=== PATIENT | male | born 1945 | race Caucasian/White ===

== ENCOUNTER → 2017-08-19 | Outpatient (CLI) | payer OTHER | END | disposition home or self-care (01) | LOC: RAH 12:29 | PROVIDERS: ATTEND Orthopaedic Surgery | DX: I73.9 Peripheral vascular disease, unspecified (principal) | CPT/HCPCS: 93922 ==

== ENCOUNTER → 2020-07-08 | Outpatient (CLI) | payer OTHER ==
[~2020-07-08] MED LIST: REGADENOSON 0.4 MG/5 ML PF SYG IVP SCH
== END | disposition home or self-care (01) ==
LOC: SHCH 08:33
PROVIDERS: ATTEND Internal Medicine Cardiovascular Disease
DX: I73.9 Peripheral vascular disease, unspecified (principal); I20.9 Angina pectoris, unspecified
CPT/HCPCS: 78452; 93017; 96374; A9500 ×2; J2785

== ENCOUNTER 2020-08-14 06:52 | Inpatient (IN) | payer OTHER ==
[2020-08-12 10:45] LABS: EOSINOPHILS % (AUTO) 4.6 % (0.0-8.0); HEMATOCRIT 44.3 % (42-54); LYMPHOCYTES % (AUTO) 39.4 % (21.0-51.0); MEAN CORPUSCULAR HEMOGLOBIN 28.8 pg (27.0-33.0); MEAN CORPUSCULAR HGB CONC 33.2 g/dL (32.0-36.0); MEAN CORPUSCULAR VOLUME 86.9 fL (79-99); MONOCYTES % (AUTO) 9.7 % (3.0-13.0); PLATELET COUNT (AUTO) 157 K/uL (130-400); RED CELL DISTRIBUTION WIDTH 13.8 % (11.0-15.5); WHITE BLOOD COUNT (AUTO) 6.8 K/uL (4.8-10.8)
[2020-08-12 10:46] LABS: APPEARANCE,URINE Clear (CLEAR); BILIRUBIN,URINE Negative (NEGATIVE); COLOR,URINE Yellow (YELLOW); GLUCOSE, URINE (UA) Negative (NEGATIVE); KETONES,URINE Negative (NEGATIVE); LEUKOCYTE ESTERASE ,URINE Trace (NEGATIVE); NITRATE,URINE Negative (NEGATIVE); OCCULT BLOOD,URINE Negative (NEGATIVE); PROTEIN,URINE Negative (NEGATIVE); UROBILINOGEN,URINE 0.2 mg/dL (0.2-1.0)
[2020-08-12 10:54] LABS: CREATININE 1.3 mg/dL (0.5-1.5)
[2020-08-12 11:05] LABS: BACTERIA,URINE Rare /HPF (None Seen); RBC,URINE None Seen /HPF (0-1); SQUAMOUS EPITHELIAL CELL,UR 0-2 /HPF (0-2); WBC,URINE 0-1 /HPF (0-1)
[2020-08-12 11:06] LABS: INR 1.1 (0.85-1.15); PROTHROMBIN TIME 11.9 SEC (9.6-11.6)
[2020-08-12 11:07] LABS: PARTIAL THROMBOPLASTIN TIME 26.9 SEC (26.3-35.5)
[~2020-08-14] VITALS: Ht 177.8 cm; Wt 98.0 kg
[2020-08-14] VITALS (9 sets, daily range): BP systolic 121–152; BP diastolic 55–74
[~2020-08-14 06:52] MED LIST changes: +0.9% NACL 500ML IV.SOLN 500 ML IV SCH; +AEC81 PO; +ATEN50TA PO; +ATOR40TA69 PO; +CLOP75TA14 PO; +GLYB5TAB8 PO; +INSLAN SQ; +ISOS60TA77 PO; +LISI10TA24 PO; +METF-444 PO; +OMEG-148 PO; -REGADENOSON 0.4 MG/5 ML PF SYG IVP SCH
[2020-08-14] MEDS ORDERED: 0.9%NACL 1000ML 1,000 ML IV ONE (07:16)
[2020-08-14] MEDS ORDERED: SODIUM BICARB 50MEQ 50ML VIAL 50 ML ONE (08:50)
[2020-08-14] MEDS ORDERED: IOHEXOL 350 MG/ML 100ML INFUS..BTL IV ONE (08:51)
[2020-08-14] MEDS ORDERED: LIDOCAINE HCL 400MG/20ML VIAL ONE (08:51)
[2020-08-14] MEDS ORDERED: FENTANYL CITRATE PF 50 MCG/1 ML 2ML VIAL ONE (08:51)
[2020-08-14] MEDS ORDERED: HEPARIN 10,000 UNIT/10ML (1,000 UNIT/ML) VIAL ONE (08:51)
[2020-08-14] MEDS ORDERED: NITROGLYCERIN 2 MG VIAL IV ONE (08:51)
[2020-08-14] MEDS ORDERED: MIDAZOLAM HCL 1 MG/ML 2ML VIAL ONE (08:51)
[2020-08-14] MEDS ORDERED: IOHEXOL-350 75 ML VIAL IV ONE (08:51)
[2020-08-14] MEDS ORDERED: NICARDIPINE 25MG INJ IV ONE (08:59)
[2020-08-14] MEDS ORDERED: NITROGLYCERIN 0.4 MG SL TAB SL PRN (10:15)
[2020-08-14] MEDS ORDERED: DEXTROSE 50%-WATER 50 ML DISP.SYRIN IV PRN (10:15)
[2020-08-14] MEDS ORDERED: 0.9%NACL 1000ML 1,000 ML IV SCH (10:15)
[2020-08-14] MEDS ORDERED: GLUCAGON 1MG KIT 1 MG ML IM PRN (10:15)
[2020-08-14] MEDS: FISH OIL 1000 MG/CAP PO SCH (13:25)
[2020-08-14 15:10] LABS: BASOPHILS % (AUTO) 0.6 % (0.0-5.0); EOSINOPHILS % (AUTO) 4.4 % (0.0-8.0); HEMATOCRIT 42.7 % (42-54); MEAN CORPUSCULAR HEMOGLOBIN 28.8 pg (27.0-33.0); MEAN CORPUSCULAR VOLUME 87.1 fL (79-99); MONOCYTES % (AUTO) 9.7 % (3.0-13.0); NEUTROPHILS % (AUTO) 52.1 % (40.0-77.0); PLATELET COUNT (AUTO) 130 K/uL (130-400); RED CELL DISTRIBUTION WIDTH 13.6 % (11.0-15.5); WHITE BLOOD COUNT (AUTO) 6.2 K/uL (4.8-10.8)
[2020-08-14 15:32] LABS: ALBUMIN 3.5 g/dL (3.5-5.0); BILIRUBIN,TOTAL 0.6 mg/dL (0.2-1.0); CREATININE 1.3 mg/dL (0.5-1.5); MAGNESIUM 1.6 mg/dL (1.80-2.40); POTASSIUM 4.3 mmol/L (3.5-5.1); THYROID STIMULATING HORMONE 1.77 uIU/mL (0.36-3.74); TOTAL PROTEIN, SERUM 7.2 g/dL (6.0-8.3)
[2020-08-14] MEDS: INSULIN HUMULIN R 100 UNIT/ML 3ML SQ SCH ×2 (15:40→20:35)
[2020-08-14 15:48] LABS: HEMOGLOBIN A1C 8.2 % (4.0-6.0)
[2020-08-14] MEDS: MAGNESIUM 2GM PREMIX 50ML 50 ML IV SCH (18:24)
[2020-08-14] MEDS ORDERED: SODIUM BICARB 8.4% 50ML SYRINGE IVP ONE (19:57)
[2020-08-14] MEDS ORDERED: CACL 1GM SYG IVP ONE (19:57)
[2020-08-14] MEDS: METOPROLOL TARTRATE 25 MG TAB PO SCH (20:31)
[2020-08-14] MEDS: ATORVASTATIN 40 MG TABLET PO SCH (20:32)
[2020-08-14] MEDS ORDERED: LISINOPRIL 10 MG TABLET PO SCH (21:00)
[2020-08-14] MEDS ORDERED: ISOSORBIDE MONO 60MG SR TAB PO SCH (21:00)
[2020-08-15] VITALS (19 sets, daily range): BP systolic 102–201; BP diastolic 34–67
[2020-08-15 04:17] LABS: HEMATOCRIT 39.7 % (42-54); MEAN CORPUSCULAR HEMOGLOBIN 29.1 pg (27.0-33.0); MEAN CORPUSCULAR HGB CONC 33.8 g/dL (32.0-36.0); MEAN CORPUSCULAR VOLUME 86.3 fL (79-99); RED BLOOD CELL COUNT(AUTO) 4.6 MIL/uL (4.50-6.20); RED CELL DISTRIBUTION WIDTH 13.5 % (11.0-15.5)
[2020-08-15 04:24] LABS: INR 1.04 (0.85-1.15); PROTHROMBIN TIME 11.3 SEC (9.6-11.6)
[2020-08-15 04:25] LABS: PARTIAL THROMBOPLASTIN TIME 25.6 SEC (26.3-35.5)
[2020-08-15 04:29] LABS: ALBUMIN 3.4 g/dL (3.5-5.0); BILIRUBIN,TOTAL 0.6 mg/dL (0.2-1.0); CREATININE 1.4 mg/dL (0.5-1.5); POTASSIUM 4.3 mmol/L (3.5-5.1); TOTAL PROTEIN, SERUM 6.8 g/dL (6.0-8.3)
[2020-08-15] MEDS: INSULIN HUMULIN R 100 UNIT/ML 3ML SQ SCH ×2 (06:03→11:30)
[2020-08-15] MEDS ORDERED: ASPIRIN 81 MG EC TAB PO SCH ×2 (09:00→13:00)
[2020-08-15] MEDS: FISH OIL 1000 MG/CAP PO SCH (09:00)
[2020-08-15] MEDS ORDERED: PAPAVERINE HCL 30 MG/ML 2ML VIAL ONE (09:12)
[2020-08-15] MEDS ORDERED: CEFAZOLIN SODIUM 1 GM VIAL ONE ×2 (09:12→13:24)
[2020-08-15] MEDS ORDERED: EPINEPHRINE PF 1MG AMP 10 MG in 0.9% NACL 250ML 240 ML IV PRN (09:15)
[2020-08-15] MEDS ORDERED: NOREPINEPHRINE BITARTRATE 8 MG in DEXTROSE 5%-WATER 250 ML IV PRN (09:15)
[2020-08-15] MEDS ORDERED: AMINOCAPROIC ACID 5,000MG VIAL 15,000 MG in 0.9% NACL 500ML IV.SOLN 420 ML IV PRN (09:15)
[2020-08-15] MEDS ORDERED: NOREPINEPHRINE BITARTRATE 8 MG in 0.9% NACL 250ML 250 ML IV PRN (09:30)
[2020-08-15] MEDS ORDERED: NITROGLYCERIN 50MG/D5W 250ML 1 BOT ONE (09:32)
[2020-08-15] MEDS: METOPROLOL TARTRATE 25 MG TAB PO SCH (09:47)
[2020-08-15] MEDS ORDERED: 0.9%NACL 1000ML 1,000 ML IV ONE (10:24)
[2020-08-15] MEDS ORDERED: CEFAZOLIN SODIUM 1 GM VIAL IVP PRN (11:00)
[2020-08-15] MEDS ORDERED: HEPARIN 10,000 UNIT/10ML (1,000 UNIT/ML) VIAL ONE (12:48)
[2020-08-15] MEDS ORDERED: HEPARIN 10,000 UNIT/10ML (1,000 UNIT/ML) VIAL IV ONE (13:10)
[2020-08-15] MEDS ORDERED: PROTAMINE SULFATE 10 MG/ML 25ML VIAL IV ONE (13:10)
[2020-08-15] MEDS ORDERED: LIDOCAINE PF 100MG/5ML (2%) SYRINGE 5ML IVP ONE (13:10)
[2020-08-15] MEDS ORDERED: ESMOLOL HCL 10 MG/ML 10 ML VIAL IVP ONE (13:10)
[2020-08-15] MEDS ORDERED: EPINEPHRINE PF 1MG AMP IVP ONE (13:10)
[2020-08-15] MEDS ORDERED: NOREPINEPHRINE BITARTRATE 1 MG/1 ML ML IV ONE (13:10)
[2020-08-15] MEDS ORDERED: AMINOCAPROIC ACID 5,000MG VIAL IV ONE (13:10)
[2020-08-15] MEDS ORDERED: FENTANYL CITRATE PF 50 MCG/1 ML 2ML VIAL IJ ONE (13:11)
[2020-08-15] MEDS ORDERED: PROPOFOL 10 MG/ML 20ML VIAL IV ONE (13:11)
[2020-08-15] MEDS ORDERED: SODIUM BICARB 50MEQ 50ML VIAL IV ONE (13:11)
[2020-08-15] MEDS ORDERED: MIDAZOLAM HCL 1 MG/ML 2ML VIAL IVPB ONE (13:11)
[2020-08-15] MEDS ORDERED: ROCURONIUM BROMIDE 10MG/1ML 5ML VL IV ONE (13:11)
[2020-08-15] MEDS ORDERED: KETAMINE HCL 100 MG/ML 5ML VIAL IJ ONE (13:16)
[2020-08-15 13:39] LABS: ABG BASE EXCESS -6.5 mmol/L (-2.0-3.0); ABG OXYGEN SATURATION 98.9 % (95.0-99.0); ABG PCO2 44 mmHg (35-48)
[2020-08-15] MEDS ORDERED: EPHEDRINE SULFATE 50 MG/ML AMPULE IM ONE (14:33)
[2020-08-15] MEDS ORDERED: MAGNESIUM 2GM PREMIX 50ML 50 ML IV PRN (15:15)
[2020-08-15] MEDS ORDERED: PROPOFOL 1000 MG/100 ML 100 ML IV PRN (15:15)
[2020-08-15] MEDS ORDERED: 0.9% NACL 500ML IV.SOLN 500 ML IV SCH (15:15)
[2020-08-15] MEDS ORDERED: ACETAMINOPHEN 325 MG TAB PO PRN (15:15)
[2020-08-15] MEDS ORDERED: GLUCAGON 1MG KIT 1 MG ML IM PRN (15:15)
[2020-08-15] MEDS ORDERED: NOREPINEPHRIN 4MG/NS 250ML 250 ML IV PRN (15:15)
[2020-08-15] MEDS ORDERED: 0.9%NACL 1000ML 1,000 ML IV SCH (15:15)
[2020-08-15] MEDS ORDERED: 0.9%NACL 10ML VIAL IVP PRN (15:15)
[2020-08-15] MEDS ORDERED: AMINOCAPROIC ACID 5,000MG VIAL 15,000 MG in 0.9% NACL 250ML 250 ML IV SCH (15:15)
[2020-08-15] MEDS ORDERED: ALBUMIN (HUMAN) 5% 250 ML IV PRN (15:15)
[2020-08-15] MEDS ORDERED: DEXTROSE 50%-WATER 50 ML DISP.SYRIN IV PRN (15:15)
[2020-08-15] MEDS ORDERED: POTASSIUM PHOS 15 mMOL+NS250ML 250 ML IV PRN (15:15)
[2020-08-15] MEDS ORDERED: ACETAMINOPHEN 650 MG SUPPOSITORY RC PRN (15:15)
[2020-08-15] MEDS ORDERED: NITROGLYCERIN 50MG/D5W 250ML 250 BOT IV SCH (15:15)
[2020-08-15] MEDS ORDERED: MORPHINE 4 MG SYG IV PRN (15:15)
[2020-08-15] MEDS ORDERED: TRAMADOL HCL 50 MG TABLET PO PRN (15:15)
[2020-08-15] MEDS ORDERED: MORPHINE 2 MG SYG IV PRN (15:15)
[2020-08-15] MEDS ORDERED: EPINEPHRINE PF 1MG AMP 10 MG in DEXTROSE 5%-WATER 250 ML IV PRN (15:15)
[2020-08-15 16:43] LABS: ABG BASE EXCESS -9.4 mmol/L (-2.0-3.0); ABG HCO3 18.2 mmol/L (21.0-28.0); ABG OXYGEN SATURATION 97.6 % (95.0-99.0); ABG PCO2 46 mmHg (35-48)
[2020-08-15] MEDS: POTASSIUM CHLORIDE 20MEQ/100ML 100 ML IV PRN ×5 (16:59→23:12)
[2020-08-15] MEDS: SODIUM BICARB 50MEQ 50ML VIAL IV PRN ×6 (17:00→21:31)
[2020-08-15 17:16] LABS: MEAN CORPUSCULAR HEMOGLOBIN 29.6 pg (27.0-33.0); MEAN CORPUSCULAR HGB CONC 33.6 g/dL (32.0-36.0); RED BLOOD CELL COUNT(AUTO) 4.09 MIL/uL (4.50-6.20); RED CELL DISTRIBUTION WIDTH 13.9 % (11.0-15.5); WHITE BLOOD COUNT (AUTO) 27.3 K/uL (4.8-10.8)
[2020-08-15 17:22] LABS: INR 1.21 (0.85-1.15)
[2020-08-15 17:23] LABS: CREATININE 1.5 mg/dL (0.5-1.5); MAGNESIUM 1.4 mg/dL (1.80-2.40); PARTIAL THROMBOPLASTIN TIME 24.4 SEC (26.3-35.5); PHOSPHORUS 4.3 mg/dL (2.5-4.9); POTASSIUM 3.1 mmol/L (3.5-5.1)
[2020-08-15] MEDS: INSULIN REGULAR, HUMAN 3ML 100 UNIT in 0.9%NACL 100ML 99 ML IV SCH ×2 (17:31)
[2020-08-15 17:55] LABS: ABG BASE EXCESS -6.6 mmol/L (-2.0-3.0); ABG HCO3 19.4 mmol/L (21.0-28.0); ABG OXYGEN SATURATION 96.6 % (95.0-99.0); ABG PCO2 41 mmHg (35-48)
[2020-08-15] MEDS: TRAMADOL HCL 50 MG TABLET PO PRN (18:17)
[2020-08-15] MEDS ORDERED: PHARMACY COMMUNICATION MISC SCH ×2 (19:15→20:00)
[2020-08-15 19:25] LABS: ABG BASE EXCESS -3.9 mmol/L (-2.0-3.0); ABG HCO3 21.9 mmol/L (21.0-28.0); ABG OXYGEN SATURATION 97.6 % (95.0-99.0); ABG PCO2 43 mmHg (35-48)
[2020-08-15] MEDS ORDERED: LACTATED RINGERS 1000ML 1,000 ML IV ONE (19:28)
[2020-08-15] MEDS ORDERED: NOREPINEPHRIN 8MG/250ML NS PMX 250 ML IV PRN ×2 (19:30→19:45)
[2020-08-15] MEDS: MAGNESIUM 2GM PREMIX 50ML 50 ML IV SCH ×2 (19:39→21:52)
[2020-08-15] MEDS: CEFAZOLIN SODIUM 1 GM VIAL IV SCH (20:26)
[2020-08-15] MEDS: FAMOTIDINE 20MG VIAL IV SCH (20:36)
[2020-08-15 21:19] LABS: ABG HCO3 21.9 mmol/L (21.0-28.0); ABG OXYGEN SATURATION 97.5 % (95.0-99.0); ABG PCO2 39 mmHg (35-48)
[2020-08-15] MEDS: ATORVASTATIN 40 MG TABLET PO SCH (21:44)
[2020-08-15] MEDS ORDERED: ALBUMIN (HUMAN) 5% 250 ML IV ONE (22:17)
[2020-08-15] MEDS: ONDANSETRON 4MG INJ IV PRN (22:46)
[2020-08-15 22:48] LABS: ABG BASE EXCESS 2.3 mmol/L (-2.0-3.0); ABG HCO3 27.1 mmol/L (21.0-28.0); ABG OXYGEN SATURATION 96.6 % (95.0-99.0); ABG PCO2 43 mmHg (35-48)
[2020-08-15] MEDS: CALCIUM GLUC 1GM 1 GM in 0.9%NACL 50ML 50 ML IV PRN (23:11)
[2020-08-15 23:58] LABS: ABG BASE EXCESS 0.9 mmol/L (-2.0-3.0); ABG HCO3 25.6 mmol/L (21.0-28.0); ABG PCO2 41 mmHg (35-48)
[2020-08-16] VITALS (34 sets, daily range): BP systolic 98–159; BP diastolic 41–98
[2020-08-16 01:26] LABS: ABG BASE EXCESS 2.6 mmol/L (-2.0-3.0); ABG HCO3 27.2 mmol/L (21.0-28.0); ABG OXYGEN SATURATION 96.3 % (95.0-99.0); ABG PCO2 42 mmHg (35-48)
[2020-08-16] MEDS: CALCIUM GLUC 1GM 1 GM in 0.9%NACL 50ML 50 ML IV PRN (01:28)
[2020-08-16] MEDS: POTASSIUM CHLORIDE 20MEQ/100ML 100 ML IV PRN ×3 (02:48→05:38)
[2020-08-16] MEDS: TRAMADOL HCL 50 MG TABLET PO PRN (03:14)
[2020-08-16 03:59] LABS: ABG BASE EXCESS 3.5 mmol/L (-2.0-3.0); ABG OXYGEN SATURATION 96.3 % (95.0-99.0); ABG PCO2 42 mmHg (35-48)
[2020-08-16 04:07] LABS: HEMATOCRIT 32.9 % (42-54); MEAN CORPUSCULAR HGB CONC 33.1 g/dL (32.0-36.0); MEAN CORPUSCULAR VOLUME 87.5 fL (79-99); RED BLOOD CELL COUNT(AUTO) 3.76 MIL/uL (4.50-6.20); RED CELL DISTRIBUTION WIDTH 14.2 % (11.0-15.5); WHITE BLOOD COUNT (AUTO) 12.4 K/uL (4.8-10.8)
[2020-08-16] MEDS: CEFAZOLIN SODIUM 1 GM VIAL IV SCH ×2 (04:08→12:57)
[2020-08-16 04:15] LABS: CREATININE 1.7 mg/dL (0.5-1.5); MAGNESIUM 2.1 mg/dL (1.80-2.40); PHOSPHORUS 1.3 mg/dL (2.5-4.9); POTASSIUM 3.7 mmol/L (3.5-5.1)
[2020-08-16 04:57] LABS: INR 1.17 (0.85-1.15); PROTHROMBIN TIME 12.6 SEC (9.6-11.6)
[2020-08-16 04:59] LABS: PARTIAL THROMBOPLASTIN TIME 22.6 SEC (26.3-35.5)
[2020-08-16] MEDS ORDERED: PHARMACY COMMUNICATION MISC SCH ×2 (05:00→19:30)
[2020-08-16] MEDS: FISH OIL 1000 MG/CAP PO SCH (08:27)
[2020-08-16] MEDS: FUROSEMIDE 20MG VIAL IV SCH ×2 (08:27→20:06)
[2020-08-16] MEDS: FAMOTIDINE 20MG VIAL IV SCH ×2 (08:27→20:06)
[2020-08-16] MEDS: ASPIRIN 325MG EC TAB PO SCH (08:27)
[2020-08-16] MEDS: INSULIN REGULAR, HUMAN 3ML 100 UNIT in 0.9%NACL 100ML 99 ML IV SCH ×4 (08:29→22:11)
[2020-08-16] MEDS: ONDANSETRON 4MG INJ IV PRN ×2 (14:47→21:31)
[2020-08-16 15:48] LABS: CREATININE 1.5 mg/dL (0.5-1.5); MAGNESIUM 1.7 mg/dL (1.80-2.40); PHOSPHORUS 3.8 mg/dL (2.5-4.9); POTASSIUM 4.4 mmol/L (3.5-5.1)
[2020-08-16] MEDS: MAGNESIUM 2GM PREMIX 50ML 50 ML IV SCH (15:58)
[2020-08-16] MEDS: ATORVASTATIN 40 MG TABLET PO SCH (20:06)
[2020-08-17] VITALS (36 sets, daily range): BP systolic 39–159; BP diastolic 36–109
[2020-08-17 03:55] LABS: HEMATOCRIT 30.7 % (42-54); MEAN CORPUSCULAR HEMOGLOBIN 29.9 pg (27.0-33.0); MEAN CORPUSCULAR HGB CONC 33.2 g/dL (32.0-36.0); RED BLOOD CELL COUNT(AUTO) 3.41 MIL/uL (4.50-6.20); RED CELL DISTRIBUTION WIDTH 14.5 % (11.0-15.5); WHITE BLOOD COUNT (AUTO) 12.7 K/uL (4.8-10.8)
[2020-08-17 03:59] LABS: CREATININE 1.4 mg/dL (0.5-1.5); POTASSIUM 4.1 mmol/L (3.5-5.1)
[2020-08-17] MEDS: FUROSEMIDE 20 MG TABLET PO SCH ×2 (08:49→17:14)
[2020-08-17] MEDS: FAMOTIDINE 20MG VIAL IV SCH ×2 (08:49→20:59)
[2020-08-17] MEDS: METOPROLOL TARTRATE 25 MG TAB PO SCH ×2 (08:49→21:00)
[2020-08-17] MEDS: FISH OIL 1000 MG/CAP PO SCH (08:50)
[2020-08-17] MEDS: ASPIRIN 325MG EC TAB PO SCH (09:00)
[2020-08-17] MEDS: TRAMADOL HCL 50 MG TABLET PO PRN (09:40)
[2020-08-17] MEDS: INSULIN HUMULIN R 100 UNIT/ML 3ML SQ SCH ×2 (16:30→21:00)
[2020-08-17] MEDS: ATORVASTATIN 40 MG TABLET PO SCH (21:00)
[2020-08-18] VITALS (36 sets, daily range): BP systolic 96–152; BP diastolic 40–91
[2020-08-18 03:31] LABS: HEMATOCRIT 35.3 % (42-54); MEAN CORPUSCULAR HEMOGLOBIN 29.1 pg (27.0-33.0); MEAN CORPUSCULAR HGB CONC 32.6 g/dL (32.0-36.0); MEAN CORPUSCULAR VOLUME 89.4 fL (79-99); RED BLOOD CELL COUNT(AUTO) 3.95 MIL/uL (4.50-6.20); RED CELL DISTRIBUTION WIDTH 13.5 % (11.0-15.5); WHITE BLOOD COUNT (AUTO) 11.4 K/uL (4.8-10.8)
[2020-08-18 03:43] LABS: CREATININE 1.6 mg/dL (0.5-1.5); POTASSIUM 4.4 mmol/L (3.5-5.1)
[2020-08-18] MEDS: INSULIN HUMULIN R 100 UNIT/ML 3ML SQ SCH ×4 (07:18→21:00)
[2020-08-18] MEDS ORDERED: INSULIN GLARGINE 100 UNITS/ML 10 ML VIAL SQ SCH (09:00)
[2020-08-18 09:12] LABS: ALBUMIN 2.4 g/dL (3.5-5.0); BILIRUBIN,DIRECT 0.4 mg/dL (0.0-0.3); BILIRUBIN,TOTAL 1.7 mg/dL (0.2-1.0); TOTAL PROTEIN, SERUM 5.6 g/dL (6.0-8.3)
[2020-08-18] MEDS: FISH OIL 1000 MG/CAP PO SCH (09:17)
[2020-08-18] MEDS: ASPIRIN 325MG EC TAB PO SCH (09:18)
[2020-08-18] MEDS: METOPROLOL TARTRATE 25 MG TAB PO SCH ×2 (09:18→21:19)
[2020-08-18] MEDS: FUROSEMIDE 20 MG TABLET PO SCH ×2 (09:19→17:10)
[2020-08-18] MEDS: ENOXAPARIN SODIUM 30 MG/0.3 ML SQ SCH (09:20)
[2020-08-18] MEDS: FAMOTIDINE 20MG TAB PO SCH (21:18)
[2020-08-18] MEDS: ATORVASTATIN 40 MG TABLET PO SCH (21:19)
[2020-08-19] VITALS (11 sets, daily range): BP systolic 110–148; BP diastolic 53–72
[2020-08-19 06:13] LABS: MEAN CORPUSCULAR HEMOGLOBIN 29.6 pg (27.0-33.0); MEAN CORPUSCULAR HGB CONC 33.8 g/dL (32.0-36.0); MEAN CORPUSCULAR VOLUME 87.7 fL (79-99); RED BLOOD CELL COUNT(AUTO) 3.65 MIL/uL (4.50-6.20); RED CELL DISTRIBUTION WIDTH 13.5 % (11.0-15.5); WHITE BLOOD COUNT (AUTO) 8.5 K/uL (4.8-10.8)
[2020-08-19] MEDS: INSULIN HUMULIN R 100 UNIT/ML 3ML SQ SCH ×4 (06:22→21:00)
[2020-08-19 06:23] LABS: CREATININE 1.5 mg/dL (0.5-1.5); POTASSIUM 3.8 mmol/L (3.5-5.1)
[2020-08-19] MEDS: METOPROLOL TARTRATE 25 MG TAB PO SCH ×2 (08:51→21:25)
[2020-08-19] MEDS: FUROSEMIDE 20 MG TABLET PO SCH (08:51)
[2020-08-19] MEDS: FAMOTIDINE 20MG TAB PO SCH (08:51)
[2020-08-19] MEDS: ASPIRIN 325MG EC TAB PO SCH (08:51)
[2020-08-19] MEDS: FISH OIL 1000 MG/CAP PO SCH (08:51)
[2020-08-19] MEDS: ENOXAPARIN SODIUM 30 MG/0.3 ML SQ SCH (08:51)
[2020-08-19] MEDS: ATORVASTATIN 40 MG TABLET PO SCH (21:24)
[2020-08-20 04:31] VITALS: BP 123/64
[2020-08-20 05:01] LABS: BASOPHILS % (AUTO) 0.3 % (0.0-5.0); EOSINOPHILS % (AUTO) 5.2 % (0.0-8.0); HEMATOCRIT 29.4 % (42-54); LYMPHOCYTES % (AUTO) 18.7 % (21.0-51.0); MEAN CORPUSCULAR HEMOGLOBIN 29.5 pg (27.0-33.0); MEAN CORPUSCULAR VOLUME 86.7 fL (79-99); NEUTROPHILS % (AUTO) 61.4 % (40.0-77.0); PLATELET COUNT (AUTO) 123 K/uL (130-400); RED BLOOD CELL COUNT(AUTO) 3.39 MIL/uL (4.50-6.20); RED CELL DISTRIBUTION WIDTH 13.4 % (11.0-15.5); WHITE BLOOD COUNT (AUTO) 7.3 K/uL (4.8-10.8)
[2020-08-20 05:05] LABS: CREATININE 1.3 mg/dL (0.5-1.5); POTASSIUM 3.5 mmol/L (3.5-5.1)
[2020-08-20] MEDS: INSULIN HUMULIN R 100 UNIT/ML 3ML SQ SCH ×3 (06:36→21:50)
[2020-08-20] MEDS: FAMOTIDINE 20MG TAB PO SCH (08:15)
[2020-08-20] MEDS: METOPROLOL TARTRATE 25 MG TAB PO SCH ×2 (08:15→21:43)
[2020-08-20] MEDS: ENOXAPARIN SODIUM 30 MG/0.3 ML SQ SCH (08:16)
[2020-08-20] MEDS: FISH OIL 1000 MG/CAP PO SCH (08:16)
[2020-08-20] MEDS: ASPIRIN 325MG EC TAB PO SCH (08:16)
[2020-08-20] MEDS ORDERED: POTASSIUM CHLORIDE 20MEQ/100ML 100 ML IV PRN (08:45)
[2020-08-20] MEDS ORDERED: POTASSIUM CHLORIDE 10% ELIXIR 20 MEQ/15 ML UDCUP PO PRN (08:45)
[2020-08-20 10:11] VITALS: BP 125/58
[2020-08-20] MEDS: KCL 20 MEQ ERTAB PO PRN ×2 (10:13→14:27)
[2020-08-20 12:27] VITALS: BP 118/60
[2020-08-20 17:27] VITALS: BP 113/95
[2020-08-20 19:15] VITALS: BP 133/63
[2020-08-20] MEDS: ATORVASTATIN 40 MG TABLET PO SCH (21:43)
[2020-08-20 23:46] VITALS: BP 126/84
[2020-08-21 04:38] VITALS: BP 120/68
[2020-08-21] MEDS: INSULIN HUMULIN R 100 UNIT/ML 3ML SQ SCH ×4 (06:11→21:00)
[2020-08-21 08:00] VITALS: BP 132/64
[2020-08-21] MEDS: FAMOTIDINE 20MG TAB PO SCH (08:35)
[2020-08-21] MEDS: FISH OIL 1000 MG/CAP PO SCH (08:35)
[2020-08-21] MEDS: ASPIRIN 325MG EC TAB PO SCH (08:35)
[2020-08-21] MEDS: METOPROLOL TARTRATE 25 MG TAB PO SCH ×2 (08:35→21:08)
[2020-08-21] MEDS: ENOXAPARIN SODIUM 30 MG/0.3 ML SQ SCH (08:36)
[2020-08-21 13:02] VITALS: BP 136/61
[2020-08-21 17:31] VITALS: BP 134/62
[2020-08-21 19:21] VITALS: BP 153/71
[2020-08-21] MEDS: ATORVASTATIN 40 MG TABLET PO SCH (21:07)
[2020-08-22 01:43] VITALS: BP 130/78
[2020-08-22 04:40] VITALS: BP 134/69
[2020-08-22] MEDS: INSULIN HUMULIN R 100 UNIT/ML 3ML SQ SCH ×3 (07:30→16:19)
[2020-08-22 08:00] VITALS: BP 130/51
[2020-08-22] MEDS: FISH OIL 1000 MG/CAP PO SCH (09:17)
[2020-08-22] MEDS: ASPIRIN 325MG EC TAB PO SCH (09:17)
[2020-08-22] MEDS: METOPROLOL TARTRATE 25 MG TAB PO SCH (09:17)
[2020-08-22] MEDS: ENOXAPARIN SODIUM 30 MG/0.3 ML SQ SCH (09:17)
[2020-08-22] MEDS: FAMOTIDINE 20MG TAB PO SCH (09:17)
[2020-08-22 11:45] VITALS: BP 117/57
[2020-08-22 16:00] VITALS: BP 131/67
== END 2020-08-22 19:58 | DRG 234 ==
LOC: DAH 06:52 → DAHIP 06:53 → 4CH 14:04 → 2CH 08-15 14:07 → 4CH 08-19 09:18
PROVIDERS: ADMIT Internal Medicine; ATTEND Internal Medicine
PROC: B2111ZZ Fluoroscopy of Multiple Coronary Arteries using Low Osmolar Contrast (ICD-10-PCS; 2020-08-14)
PROC: B2151ZZ Fluoroscopy of Left Heart using Low Osmolar Contrast (ICD-10-PCS; 2020-08-14)
PROC: 4A023N6 Measurement of Cardiac Sampling and Pressure, Right Heart, Percutaneous Approach (ICD-10-PCS; 2020-08-14)
PROC: 06BQ4ZZ Excision of Left Saphenous Vein, Percutaneous Endoscopic Approach (ICD-10-PCS; 2020-08-15)
PROC: 02100Z9 Bypass Coronary Artery, One Artery from Left Internal Mammary, Open Approach (ICD-10-PCS; principal; 2020-08-15 13:11)
PROC: 02120AW Bypass Coronary Artery, Three Arteries from Aorta with Autologous Arterial Tissue, Open Approach (ICD-10-PCS; 2020-08-15 13:11)
DX: T82.855A Stenosis of coronary artery stent, initial encounter (principal); I25.110 Atherosclerotic heart disease of native coronary artery with unstable angina pectoris; I24.9 Acute ischemic heart disease, unspecified; N18.2 Chronic kidney disease, stage 2 (mild); I12.9 Hypertensive chronic kidney disease with stage 1 through stage 4 chronic kidney disease, or unspecified chronic kidney disease; E78.5 Hyperlipidemia, unspecified; E11.22 Type 2 diabetes mellitus with diabetic chronic kidney disease; N18.30 Chronic kidney disease, stage 3 unspecified; E11.51 Type 2 diabetes mellitus with diabetic peripheral angiopathy without gangrene; J98.4 Other disorders of lung; E78.00 Pure hypercholesterolemia, unspecified; E87.70 Fluid overload, unspecified; Y83.1 Surgical operation with implant of artificial internal device as the cause of abnormal reaction of the patient, or of later complication, without mention of misadventure at the time of the procedure; Z79.4 Long term (current) use of insulin; Z79.82 Long term (current) use of aspirin; Z79.899 Other long term (current) drug therapy; Z88.5 Allergy status to narcotic agent; Z20.822 Contact with and (suspected) exposure to COVID-19
CPT/HCPCS: 36415; 71045; 73030; 74018; 74176; 80048; 80053; 80061; 80076; 81001; 82150; 82435; 82803; 82947; 82948; 83036; 83605; 83690; 83735; 83880; 84100; 84132; 84295; 84443; 85018; 85025; 85027; 85347; 85610; 85730; 86850; 86900; 86901; 86923; 93005; 93458; 93880; 94002; 94010; 94150; 97039; 99156; 99157; A4357; A4606; A7048; C1757; C1894; G0378; J0171; J0610; J0690; J1644; J1650; J1815; J1940; J2001; J2250; J2405; J2440; J2704; J2720; J3010; J3475; J3480; J3490; J7030; J7040; J7050; J7060; J7120; P9045; Q9967; U0003

== ENCOUNTER → 2020-09-10 | Outpatient (CLI) | payer OTHER ==
[~2020-09-10] MED LIST changes: -0.9% NACL 500ML IV.SOLN 500 ML IV SCH; -ISOS60TA77 PO; -LISI10TA24 PO
== END | disposition home or self-care (01) ==
LOC: RAH 09-09 13:33
PROVIDERS: ATTEND Internal Medicine Cardiovascular Disease
DX: I80.9 Phlebitis and thrombophlebitis of unspecified site (principal)
CPT/HCPCS: 93970

== ENCOUNTER → 2021-07-31 | Outpatient (CLI) | payer OTHER | END | disposition home or self-care (01) | LOC: SHCH 15:27 | PROVIDERS: ATTEND Internal Medicine Cardiovascular Disease | DX: I70.203 Unspecified atherosclerosis of native arteries of extremities, bilateral legs (principal); Z95.828 Presence of other vascular implants and grafts | CPT/HCPCS: 93925 ==

== ENCOUNTER → 2021-09-09 | Outpatient (CLI) | payer OTHER ==
[2021-09-09 09:49] LABS: CREATININE 1.1 mg/dL (0.5-1.5); POTASSIUM 4.6 mmol/L (3.5-5.1)
== END | disposition home or self-care (01) ==
LOC: LAB 08:20
PROVIDERS: ATTEND Internal Medicine Cardiovascular Disease
DX: I10 Essential (primary) hypertension (principal)
CPT/HCPCS: 36415; 80048

== ENCOUNTER → 2021-10-29 | Outpatient (CLI) | payer OTHER | END | disposition home or self-care (01) | LOC: OIH 07:50 | PROVIDERS: ATTEND Internal Medicine Cardiovascular Disease | DX: I25.119 Atherosclerotic heart disease of native coronary artery with unspecified angina pectoris (principal); I51.7 Cardiomegaly; I73.9 Peripheral vascular disease, unspecified | CPT/HCPCS: 93306 ==

== ENCOUNTER → 2021-11-03 | Outpatient (CLI) | payer OTHER ==
[~2021-11-03] MED LIST changes: +REGADENOSON 0.4 MG/5 ML PF SYG IVP SCH
== END | disposition home or self-care (01) ==
LOC: OIH 09:32
PROVIDERS: ATTEND Internal Medicine Cardiovascular Disease
DX: I25.119 Atherosclerotic heart disease of native coronary artery with unspecified angina pectoris (principal); I73.9 Peripheral vascular disease, unspecified
CPT/HCPCS: 78452; 93017; 96374; A9500 ×2; J2785

== ENCOUNTER → 2023-09-03 | Outpatient (CLI) | payer OTHER ==
[~2023-09-03] MED LIST changes: +CLOP-31 PO; -CLOP75TA14 PO; +FLUT1BLS15 IH; +IBUP-2784 PO; +ISOS60TA77 PO; +LISI2.5T13 PO; -OMEG-148 PO; -REGADENOSON 0.4 MG/5 ML PF SYG IVP SCH; +TRAM50TA4 PO
== END | disposition home or self-care (01) ==
LOC: RAH 13:47
PROVIDERS: ATTEND Internal Medicine Cardiovascular Disease
DX: I73.9 Peripheral vascular disease, unspecified (principal)
CPT/HCPCS: 93925

== ENCOUNTER → 2023-09-20 | Outpatient (CLI) | payer OTHER | END | disposition home or self-care (01) | LOC: RAH 13:50 | PROVIDERS: ATTEND Internal Medicine | DX: M47.26 Other spondylosis with radiculopathy, lumbar region (principal); M48.07 Spinal stenosis, lumbosacral region; M51.16 Intervertebral disc disorders with radiculopathy, lumbar region | CPT/HCPCS: 72148 ==

== ENCOUNTER → 2024-05-18 | Outpatient (CLI) | payer OTHER ==
--- NOTE | 2024-05-18 15:43 | HMCIMG ---
NM HIDA WO EF/CCK REASON: UPPER ABDOMINAL PAIN. COMPARISON: None TECHNIQUE: Hepatobiliary imaging study was performed with 7 mCi of technetium Choletec through intravenous route. 3 hour delayed images were obtained. FINDINGS: Normal visualization of gallbladder activity noted within 1 hour. Nonvisualization of bowel activity until 3 hours may be related to ileus. IMPRESSION: No scintigraphic evidence of acute cholecystitis is seen. There is nonvisualization of bowel activity at 1 hour but visualized at 3 hours in the colon may be related ileus.
== END | disposition home or self-care (01) ==
LOC: RAH 10:30
PROVIDERS: ATTEND Internal Medicine
DX: R10.10 Upper abdominal pain, unspecified (principal)
CPT/HCPCS: 78226; A9537

== ENCOUNTER → 2024-10-18 | Outpatient (CLI) | payer OTHER ==
[2024-10-18 11:32] LABS: CREATININE 1.4 mg/dL (0.5-1.3)
== END | disposition home or self-care (01) ==
LOC: LAB 10:30
PROVIDERS: ATTEND Internal Medicine Cardiovascular Disease
DX: I25.119 Atherosclerotic heart disease of native coronary artery with unspecified angina pectoris (principal)
CPT/HCPCS: 36415; 80048

== ENCOUNTER → 2025-02-09 | Outpatient (CLI) | payer OTHER ==
--- NOTE | 2025-02-09 15:07 | HMCIMG ---
US VENOUS DOPPLER BILATERAL REASON: generalized edema COMPARISON: None Technique: Bilateral venous doppler ultrasound was performed with spectral analysis and color flow imaging technique. FINDINGS: There is a normal appearance of the common femoral, deep femoral, the profunda femoris and popliteal veins. Proximal calf veins appear normal as well. There is normal response to compression and augmentation. There is no evidence of deep venous thrombosis. There is a right femoral popliteal bypass which appears to be occluded. IMPRESSION: Normal bilateral lower extremity venous Doppler ultrasound. Occlusion of the right femoral to popliteal artery bypass with no flow seen
== END | disposition home or self-care (01) ==
LOC: RAH 13:40
PROVIDERS: ATTEND Internal Medicine
DX: I82.411 Acute embolism and thrombosis of right femoral vein (principal); R60.1 Generalized edema
CPT/HCPCS: 93970

== ENCOUNTER 2025-02-27 22:19 | Inpatient (IN) | payer OTHER ==
[~2025-02-27] VITALS: Ht 177.8 cm; Wt 78.9 kg
[2025-02-27 23:00] LABS: IMMATURE GRANULOCYTE ABSOLUTE 0.01 K/uL (0-1); NUCLEATED RED BLOOD CELLS 0.0 % (0.0-0.19); PLATELET COUNT (AUTO) 124 K/uL (130-400); RED BLOOD CELL COUNT(AUTO) 5.15 MIL/uL (4.50-6.20); RED CELL DISTRIBUTION WIDTH 14.4 % (11.0-15.5); WHITE BLOOD COUNT (AUTO) 4.0 K/uL (4.8-10.8)
[2025-02-27 23:22] LABS: CREATININE 1.5 mg/dL (0.5-1.3); GLOMERULAR FILTR. RATE CALC 46.0 mL/min (>90); GLUCOSE,RANDOM 97.0 mg/dL (70-105); SODIUM SERUM 140.0 mmol/L (136-145); UREA NITROGEN, BLOOD 21.0 mg/dL (7-18)
[2025-02-27 23:28] LABS: CREATINE KINASE, TOTAL 153.0 U/L (21-232)
--- NOTE | 2025-02-27 23:35 | ERN ---
ED Note History of Present Illness Stated Complaint: CHILLS, VOMITING, CHEST PAIN, SHORTNESS OF BREATH Chief Complaint: Nausea,Vomiting,Diarrhea Time Seen by MD: 22:59 Dictation: This is an 79-year-old male who came in via EMS with complaints of chills chest pain and vomitings. Stated that he had dinner and a couple of hours later began experiencing chest pain and vomitings actively. Also reported shortness of breath. He stated that all this started with severe chills. He did not document a fever. No diarrhea. No other family members are sick. No dysuria or hematuria. He does report chest pain which is mostly in the mid central sternal area. He appeared extremely sick when he came into the ER with active emesis. Temperature 98.8 pulse 124 respirations 18 blood pressure 140/87 with a pulse oximetry of 98% on room air His chronic medical problems include hypertension , Diabetes , Hypercholesterolemia, peripheral arterial disease-status post left femoral popliteal bypass surgery in 2021, coronary artery disease status post coronary artery bypass surgery and stent placements Allergies: Coded Allergies: No Known Drug Allergies (Unverified Allergy, Unknown, 02/27/25) Home Meds Reported Medications Tramadol Hcl (Tramadol HCl) 50 Mg Tablet, 50 MG PO Q6HPRN PRN for PAIN LEVEL 6 TO 10, #30 TAB 03/14/22 Ibuprofen (Ibuprofen 200 mg Tablet) 200 Mg Tablet, 200 MG PO Q6HPRN PRN for PAIN LEVEL 1 TO 5, TAB 03/14/22 Fluticasone/Umeclidin/Vilanter (Trelegy Ellipta 200-62.5-25) 1 Each Blst.w.dev, 1 EACH IH AD PRN for SHORTNESS OF BREATH 03/10/22 Isosorbide Mononitrate (Isosorbide Mononitrate ER) 60 Mg Tab.er.24h, 60 MG PO HS, TAB 03/10/22 Lisinopril (Lisinopril) 2.5 Mg Tablet, 2.5 MG PO HS, TAB 03/10/22 Insulin Glargine,Hum.rec.anlog (Lantus) 100 Units/Ml Inj, 52 UNITS SQ BID, ML 08/13/20 Aspirin (ASPIRIN 81 MG ECTAB) 81 Mg Ectab, 81 MG PO DAILY, TAB.EC 3/2/21 Metformin HCl (Metformin HCl) 500 Mg Tablet, 500 MG PO BID, TAB 08/13/20 Glyburide (Glyburide) 5 Mg Tablet, 5 MG PO BID, TAB 08/13/20 Clopidogrel Bisulfate (Plavix) 75 Mg Tablet, 75 MG PO HS, TAB 08/13/20 Atorvastatin Calcium (LIPITOR) 80 Mg Tablet, 40 MG PO HS, TAB 08/13/20 Atenolol (Atenolol) 50 Mg Tablet, 50 MG PO HS, TAB 08/13/20 Past Medical History Past Medical History: Diabetes-Type II, High Cholesterol, Hypertension, Unknown Surgical History: CABG Surgical History Other: Peripheral arterial disease,left femoral popliteal bypass surgery in 2021 Family History: Negative Social History: Negative RN Note Reviewed/Agreed w/PFSH: Yes Review of System Dictation Constitutional: Negative for fever, positive for chills, Eyes: Negative for injury, pain,redness, and discharge ENT: Negative for injury,pain or swelling Cardiovascular: Positive for chest pain, palpitations, and edema Respiratory: Positive for shortness of breath, denied cough, and wheezing, Abdomen/GI: Positive for abdominal pain, nausea, vomiting, denied diarrhea, and constipation Back: Negative for injury and pain : Negative for injury, bleeding and discharge MS/Extremity: Negative for injury and deformity Skin: Negative for rash, and discoloration Neuro: Negative for headache, weakness, numbness, tingling, and seizure Psych: Negative for suicide ideation, homicidal ideation, and hallucinations Initial Vital Sign VS Vital Signs Date Time Temp Pulse Resp B/P (MAP) Pulse Ox O2 Delivery O2 Flow Rate FiO2 02/27/25 22:50 98.8 124 18 140/87 98 Room Air* 0 21 Physical Exam Dictation General: awake, alert, NAD elderly male actively vomitings stomach contents Head/Face: Normocephalic, atraumatic Eyes: PERRL, EOMI, vision at baseline ENT: oral cavity clear, TMs clear, no signs of infection Neck: Trachea midline, supple, no nuchal rigidity Cardiovascular: Tachycardic, No MRGs, no JVD Respiratory: Bilateral coarse rhonchi no respiratory distress, No rales or wheezes Abdomen: Soft, non-tender, non-distended, normal bowel sounds, no guarding or rebound. Skin: Warm, dry, normal turgor, no rash MS/Extremity: Pulses equal, no cyanosis, neurovascular intact, FROM Neuro: COAx4, GCS 15, strength 5/5, CN 2-12 intact, normal cerebellar exam, normal gait, Psych: Normal behavior, mood, and affect normal Extremities-trace edema without any palpable cords, Homans sign is negative Results (Laboratory/Radiology) Laboratory/Radiology Laboratory Tests Test 02/27/25 22:50 02/27/25 23:38 02/28/25 00:43 White Blood Count 4.0 K/uL (4.8-10.8) L Red Blood Count 5.15 MIL/uL (4.50-6.20) Hemoglobin 15.1 g/dL (14.0-18.0) Hematocrit 45.8 % (42-54) Mean Corpuscular Volume 88.9 fL (79-99) Mean Corpuscular Hemoglobin 29.3 pg (27.0-33.0) Mean Corpuscular Hemoglobin Concent 33.0 g/dL (32.0-36.0) Red Cell Distribution Width 14.4 % (11.0-15.5) Platelet Count 124 K/uL (130-400) L Mean Platelet Volume 10.7 fL (7.5-10.5) H Immature Granulocyte % (Auto) 0.3 % (0-1) Neutrophils (%) (Auto) 81.3 % (40.0-77.0) H Lymphocytes (%) (Auto) 14.8 % (21.0-51.0) L Monocytes (%) (Auto) 1.8 % (3.0-13.0) L Eosinophils (%) (Auto) 1.5 % (0.0-8.0) Basophils (%) (Auto) 0.3 % (0.0-5.0) Neutrophils # (Auto) 3.2 K/uL (1.8-7.7) Lymphocytes # (Auto) 0.6 K/uL (1.0-4.8) L Monocytes # (Auto) 0.1 K/uL (0.1-1.0) Eosinophils # (Auto) 0.06 K/uL (0.00-0.70) Basophils # (Auto) 0.01 K/uL (0.00-0.20) Absolute Immature Granulocyte (auto 0.01 K/uL (0-1) Nucleated Red Blood Cells 0.0 % (0.0-0.19) Activated Partial Thromboplast Time 24.5 SEC (26.3-35.5) L Sodium Level 140 mmol/L (136-145) Potassium Level 4.0 mmol/L (3.5-5.1) Chloride Level 105 mmol/L (101-111) Carbon Dioxide Level 25 mmol/L (21-32) Blood Urea Nitrogen 21 mg/dL (7-18) H Creatinine 1.5 mg/dL (0.5-1.3) H Glomerular Filtration Rate Calc 46 mL/min (>90) Random Glucose 97 mg/dL (70-105) Total Calcium 8.5 mg/dL (8.5-10.1) Total Creatine Kinase 153 U/L (21-232) 284 U/L (21-232) #H Troponin I High Sensitivity 23 ng/L (4-75) 3055 ng/L (4-75) *H B-Type Natriuretic Peptide 16 pg/mL (0-100) Lipase 70 U/L (16-77) Lactic Acid Level 3.1 mmol/L (0.8-2.5) H Labs Reviewed?: Yes EKG Comment: Twelve lead EKG done on 02/27/2025 at 10:28 p.m. showed a heart rate of 114, CO interval 151, QRS 139, QT/QTC 341/471 Impression sinus tachycardia left bundle branch block with a intraventricular conduction delay. In comparison to the EKG done on 03/09/2022 this is a new left bundle branch block with a intraventricular conduction delay. EKG rhythm strip shows normal sinus rhythm sinus tachycardia with a left bundle branch block nonspecific ST-T depressions. Interpreted by ER MD Dr. Ruth X-RAY Comment: REASON: CHEST PAIN ORDERING PHYSICIAN: AMI RUTH MD PROCEDURE: CXR1VW - CHEST 1VW EXAM: CR Chest, 1 view CLINICAL HISTORY: Chest pain. COMPARISON: Chest radiograph dated 03/09/2022. FINDINGS: Redemonstrated chronic peripheral interstitial thickening bilaterally. The lungs show no infiltrates or other acute findings. No pleural effusion or pneumothorax. The cardiomediastinal silhouette is within normal limits. Status poststernotomy. No acute osseous abnormality. IMPRESSION: No acute cardiopulmonary process is evident. Redemonstrated chronic peripheral interstitial thickening bilaterally. Compared to the prior study, there is no significant interval change. /[place] DICTATED BY: LUPIS POON Jr., MD DATE: 02/28/2551 ELECTRONICALLY SIGNED BY: LUPIS POON Jr., MD DATE: 02/28/2551 ED Course ED Course Orders Procedure Category Date Status Time Ondansetron 4mg Inj PHA 02/27/25 Complete (Zofran 4mg Inj) 22:36 Morphine 2mg Syg PHA 02/27/25 Complete (Morphine 2mg Syg) 22:38 Vital Signs Per CPOE 02/27/25 Transmitted Routine 22:46 Chest 1vw RAD 02/27/25 Resulted 22:46 12 Lead Ekg Tracing- EKG 02/27/25 Logged Technical 22:46 Oxygen By Nc/Pulse Ox CPOE 02/27/25 Transmitted 22:46 Maintain Iv CPOE 02/27/25 Transmitted 22:46 Iv Insertion CPOE 02/27/25 Transmitted 22:46 Cardiac Monitoring CPOE 02/27/25 Transmitted 22:46 Pulse Oximetry With CPOE 02/27/25 Transmitted Vs And Prn 22:46 Cbc With Differential LAB 02/27/25 Complete 22:46 Activity: Br W/Brp CPOE 02/27/25 Transmitted With Assist 22:46 Creatine Kinase, Total LAB 02/27/25 Complete 22:46 Troponin I High LAB 02/27/25 Complete Sensitivity 22:46 Urinalysis Profile LAB 02/27/25 Logged 22:46 Basic Metabolic Panel LAB 02/27/25 Complete 22:46 Morphine 2mg Syg PHA 02/27/25 Complete (Morphine 2mg Syg) 23:00 Ondansetron 4mg Inj PHA 02/27/25 Complete (Zofran 4mg Inj) 23:00 B-Type Natriuretic LAB 02/27/25 Complete Peptide 23:25 Lactic Acid LAB 02/27/25 Complete 23:25 Lipase LAB 02/27/25 Complete 22:50 12 Lead Ekg Tracing- EKG 02/28/25 Logged Technical 00:22 Creatine Kinase, Total LAB 02/28/25 Complete 00:22 Troponin I High LAB 02/28/25 Complete Sensitivity 00:22 Initiate Heparin JAYCOB 02/28/25 In Process Treatment Pro 01:15 Cbc With Differential LAB 03/01/25 Verified 04:00 Cbc With Differential LAB 03/04/25 Verified 04:00 Cbc With Differential LAB 03/07/25 Verified 04:00 Partial LAB 02/28/25 Complete Thromboplastin Time 01:15 Heparin 5,000 Unit PHA 02/28/25 In Process Vial (Heparin 5,000 U 02:00 Heparin 25,000 PHA 02/28/25 In Process Units/250ml D5w 02:00 Heparin Protocol CPOE 02/28/25 Transmitted Monitoring 01:15 Nitroglycerin 0.4mg PHA 02/28/25 In Process Sl Tab (Nitrostat) 01:30 Heparin 5,000 Unit PHA 02/28/25 Complete Vial (Heparin 5,000 U 02:00 Current Medications Medications (Trade) Dose Ordered Sig/Stas Route PRN Reason Start Time Stop Time Status Last Admin Dose Admin Heparin Sodium (Porcine) (HEParin 5,000 UNIT VIAL) *calculation based on ACTUAL B... AD PRN IV HEPARIN PROTOCOL 02/28/25 02:00 03/30/25 01:59 Heparin Sodium (Porcine) (HEParin 5,000 UNIT VIAL) 6,000 unit ONCE ONCE IV 02/28/25 02:00 02/28/25 02:01 DC Heparin Sodium/ Dextrose 250 ml @ 0 mls/hr Q6H IV 02/28/25 02:00 03/30/25 01:59 Morphine Sulfate (morPHINE 2MG SYG) 2 mg ONCE ONCE IVP 02/27/25 23:00 02/27/25 23:01 DC 02/27/25 23:07 Morphine Sulfate (morPHINE 2MG SYG) 2 mg STK-MED ONCE .ROUTE 02/27/25 22:38 02/27/25 22:38 DC Nitroglycerin (Nitrostat) 0.4 mg AD PRN SL CHEST PAIN 02/28/25 01:30 03/30/25 01:29 Ondansetron HCl (zoFRAN 4MG INJ) 4 mg ONCE ONCE IVP 02/27/25 23:00 02/27/25 23:01 DC 02/27/25 23:08 Ondansetron HCl (zoFRAN 4MG INJ) 4 mg STK-MED ONCE .ROUTE 02/27/25 22:36 02/27/25 22:36 DC Vital Signs Date Time Temp Pulse Resp B/P (MAP) Pulse Ox O2 Delivery O2 Flow Rate FiO2 02/28/25 00:05 111 20 156/82 99 Room Air* 0 21 02/27/25 22:50 98.8 124 18 140/87 98 Room Air* 0 21 We will perform diagnostic labs, advanced imaging and administer medications ac cording to the patient's complaint. Once the results are available, will review and personally interpreted the labs to rule out any acute life-threatening emergency the trach require immediate intervention and treatment. I will then re-evaluate the patient after treatment and diagnostic exams have return to determine whether the patient requires any further testing, can safely be discharged home or need further admission to hospital for additional treatment and evaluation. Patient will be admitted to the hospital to the intensive care unit for acute LA 2:12 a.m. patient accepted by Stef Ferrer mid-level provider for [facility] for admission to intensive care unit and plans for left heart catheterization in a.m. HEART Score Response (Comments) Value History: High suspicion (+2) 2 EKG: Repolarization changes 1 Age: > 65yrs (+2) 2 Risk Factors: 3+ risk factors (+2) 2 Initial Troponin: Normal limit (0) 0 HEART Score Risk: Mod Risk for MACE (4-6) Total 7 Medical Decision Making MDM Differential diagnosis: Gastroenteritis, indigestion, acute myocardial infarction, cholecystitis, enterocolitis, gastroesophageal reflux We will perform diagnostic labs, advanced imaging and administer medications according to the patient's complaint. Once the results are available, will review and personally interpreted the labs to rule out any acute life- threatening emergency the trach require immediate intervention and treatment. I will then re-evaluate the patient after treatment and diagnostic exams have return to determine whether the patient requires any further testing, can safely be discharged home or need further admission to hospital for additional treatment and evaluation. 11:20 p.m. CBC showed a white count of 4000 hemoglobin 15 platelets 124. BNP 7 and other labs are pending 11:30 p.m. at bedside patient is feeling better after Zofran and resting comfortably 12:00 a.m. troponins are negative, lipase is 70 lactic acid 3.1 BNP 7 is significant for a BUN and creatinine of 21 and 1.5 Chest x-ray shows bilateral chronic interstitial infiltrates EKG shows a new left bundle branch block with a sinus tachycardia and with his chest pain it is worrisome for a new cardiac event. I had a long discussion with the patient Mr. Sanford and his and explained to them that I was concerned about multiple possibilities and at his advanced age would recommend admission to the hospital for further evaluation and also monitoring. They both are agreeable. 1:15 a.m. 2nd set of troponin 3055. Patient is ruling in for an acute myocardial infarction. Heparin drip initiated. Currently patient is chest pain-free, PRN nitro as needed. Consulted Dr. Ailyn martinez cardiology and made her aware of the patient's condition and she recommended to keep the patient NPO for a cardiac catheterization in the morning by Dr. Juarez I had a long discussion again with the patient and his spouse about acute LA and plan of care and answered all their questions Rationale: Tests considered and ordered secondary to shared decision making include: labs, ECG and radiology Previous outside records reviewed: Old ER visits. Risk of complication and/or morbidity or mortality of patient management: None Medications-Per medication reconciliation Need for hospitalization: Patient does meet criteria for hospitalization. Need for emergency major/minor surgery: No There are no social concerns with this patient. Prescription drug management Prescriptions will include symptomatic care Patient's prior external medical records from other ER visits were reviewed by me as indicated. Prior testing and results from previous visits were reviewed. Prior tests were taken into account with medical decision making and resource utilization, independent historian/historians were used to obtain complete medical history. I independently interpreted the test that were performed, results were reviewed by me and considered findings on radiology if ordered. Medical management and examination interpretation discussions were had by me with other qualified healthcare professionals as indicated for the patient's care. Problem List Problem List: (1) Acute LA (2) Unstable angina (3) New onset left bundle branch block (LBBB) (4) Nausea & vomiting (5) Lactic acidosis (6) Acute kidney injury Critical Care Note Critical Time: 45 minutes Comment(s) Life-threatening illness; acute LA, lactic acidosis, nausea vomitings, new left bundle branch block Risk of morbidity mortality-high Complexity of medical decision making-high (X) high probability of sudden clinically significant deterioration in the patient's condition required the highest level of my preparedness to intervene urgently. I provided critical care services requiring my direct and personal management as noted below; (x) chart data review (x) reviewing nurse's notes and/charts (x) documentation time (x) consultation collaboration on findings and therapy options (x) medication orders and management (x) re-evaluations (x) care, transfer of care, and discharge plans (x) ordering and interpreting studies (x) ordering and reviewing labs (x) obtaining necessary history from family, EMS, jail, private MD, surrogate decision makers because patient was unable to give history due to limitations in the mental status (x) aggregate critical care time was (45 ) minutes. This includes only time during which I was engaged in work directly related to the patient's care as described above whether at the bedside or elsewhere in the ER while the patient was critical. My time did not include minutes spent treating any other patients simultaneously or on activities that did not directly contribute to the patient's treatment. It did not include time spent performing other reported procedures or services of residents if any. Ami Ruth MDFCCP DX & DISP Disposition: Inpatient Decision to Admit Time: 00:09 Departure Impression: Primary Impression: Acute LA Additional Impressions: New onset left bundle branch block (LBBB), Unstable angina, Nausea & vomiting, Lactic acidosis, Acute kidney injury Condition: Stable Additional Instructions: Patient was informed of all the diagnostic labs and procedures conducted in the emergency room today and demonstrated understanding of the results. I personally reviewed and interpreted all the diagnostic exams performed in the ER today. The patient will be admitted to the hospital for further treatment and evaluation. Disposition-admit to facility Condition-stable/guarded Course-uncertain at this time Pain status-decreased Assessment-exam unchanged Admission Certification- I certify that the patients status is appropriate and is based on my best clinical judgment and the patient's condition as documented in the medical records Referrals: REECE MEJIA MD (PCP) AMI RUTH MD Feb 27, 2025 23:35
--- NOTE | 2025-02-27 23:53 | HMCIMG ---
EXAM: CR Chest, 1 view CLINICAL HISTORY: Chest pain. COMPARISON: Chest radiograph dated 03/09/2022. FINDINGS: Redemonstrated chronic peripheral interstitial thickening bilaterally. The lungs show no infiltrates or other acute findings. No pleural effusion or pneumothorax. The cardiomediastinal silhouette is within normal limits. Status poststernotomy. No acute osseous abnormality. IMPRESSION: No acute cardiopulmonary process is evident. Redemonstrated chronic peripheral interstitial thickening bilaterally. Compared to the prior study, there is no significant interval change. /[place]
[2025-02-28] MEDS ORDERED: NITROGLYCERIN 0.4 MG SL TAB SL PRN (01:30)
--- NOTE | 2025-02-28 02:21 | HP ---
History of Present Illness Reason for Visit: Chest pain Referring MD: Dr. aguilar Estrella History of Present Illness Mr. Sanford is a 79-year-old male that was seen and examined today on 02/28/2025. Patient is a good historian of personal health Patient reports that he came to the emergency department with a chief complaint of chest pain. Onset was 02/27/2025 at 9:30 p.m.. Location is midsternal. Duration is on and off. Character is described as pressure. There was no alleviating factors. There was no aggravating factors. Patient reports associated nausea and vomiting x1 episode as well as shaking. Today in the emergency department platelets 124, creatinine 1.5, BUN 21, initial troponin unremarkable, BNP unremarkable, no urinalysis has been collected or sent to lab. Chest x-ray is unremarkable. Repeat troponin is 3055. Emergency room physician contacted elevator constructor hydraulic on-call, Dr. Gonzalez who requested patient be admitted under hospitalist service. Patient to be kept NPO. No need for Plavix for ticagrelor. Patient will be started on a heparin drip. Past Medical History Patient History: Carcinomas MOTHER, FATHER, Cardiovascular disease BROTHER Diabetes mellitus BROTHER ADDITIONAL PAST MEDICAL HISTORY: [Diabetes mellitius type2, hyperlipidemia, hypertension, peripheral artery disease, bladder CA] SOCIAL HISTORY: [Negative for smoking or tobacco use. Patient drinks one beer that is 12 oz about once a week. Patient denies drug use. Patient lives alone. Patient denies difficulty pain is bills. Patient has good access to health care through his insurance.] SURGICAL HISTORY: [Left femoral popliteal bypass, CABG x4, cataract surgery] Review of Systems General: No Fever; Chills; No Night Sweats, No Fatigue, No Malaise, No Appetite, No Other HEENT: No Head Aches, No Visual Changes, No Eye Pain, No Ear Pain, No Dysphasia, No Sinus Congestion, No Post Nasal Drip, No Sore Throat, No Other Pulmonary: No Dyspnea, No Cough, No Pleuritic Chest Pain, No Other Cardiovascular: Chest Pain; No: Palpitations, Orthopnea, Paroxysmal Noc. Dyspnea, Edema, Lt Headedness, Other Gastrointestinal: Nausea, Vomiting; No: Abdominal Pain, Diarrhea, Constipation, Melena, Hematochezia, Other Genitourinary: No Dysuria, No Frequency, No Incontinence, No Hematuria, No Retention, No Other Musculoskeletal: No: other, neck pain, shoulder pain, arm pain, back pain, hand pain, leg pain, foot pain Skin: No Urticaria, No Rash, No Other Neurological: No: Weakness, Numbness, Incoordination, Change in speech, Confusion, Seizures, Other Allergies: Coded Allergies: No Known Drug Allergies (Unverified Allergy, Unknown, 02/27/25) Scheduled Aspirin (Aspirin 81 Mg Ectab), 81 MG PO DAILY, (Reported) Atenolol (Atenolol), 50 MG PO HS, (Reported) Atorvastatin Calcium (Lipitor), 40 MG PO HS, (Reported) Clopidogrel Bisulfate (Plavix), 75 MG PO HS, (Reported) Glyburide (Glyburide), 5 MG PO BID, (Reported) Insulin Glargine,Hum.rec.anlog (Lantus), 52 UNITS SQ BID, (Reported) Isosorbide Mononitrate (Isosorbide Mononitrate ER), 60 MG PO HS, (Reported) Lisinopril (Lisinopril), 2.5 MG PO HS, (Reported) Metformin HCl (Metformin HCl), 500 MG PO BID, (Reported) Scheduled PRN Fluticasone/Umeclidin/Vilanter (Trelegy Ellipta 200-62.5-25), 1 EACH IH AD PRN for SHORTNESS OF BREATH, (Reported) Ibuprofen (Ibuprofen 200 mg Tablet), 200 MG PO Q6HPRN PRN for PAIN LEVEL 1 TO 5, (Reported) Tramadol Hcl (Tramadol HCl), 50 MG PO Q6HPRN PRN for PAIN LEVEL 6 TO 10, (Reported) Exam Vital Signs Vital Signs Date Time Temp Pulse Resp B/P (MAP) Pulse Ox O2 Delivery O2 Flow Rate FiO2 02/28/25 02:06 98.1 106 19 148/84 97 Room Air* 0 21 General Appearance: Alert, Oriented X3, Cooperative, mild distress HEENT: Atraumatic, EOMI Respiratory: Clear to auscultation, Normal air movement, NL respiratory effort Cardiovascular: Normal S1, Normal S2, Other (Positive tachycardia) Abdominal: Normal bowel sounds, Soft, No tenderness Extremities: No edema Skin: No significant lesion Neuro: Normal speech, Strength at 5/5 X4 ext, Cranial nerves 3-12 NL Psych/Mental Status: Mental status NL, Mood NL, Thoughts/Content NL Assessment/Plan ASSESSMENT: [ NSTEMI, POA Hyperlactatemia, POA Thrombocytopenia mild, POA CKD stage IIIA Diabetes mellitius type2 Hypertension Hyperlipidemia Peripheral artery disease PLAN: [ Admit patient to pccu as inpatient status. Place patient on telemetry monitoring. NSTEMI: Administer aspirin 162 mg by mouth times 1 dose Continue aspirin 81 mg by mouth once daily Nitropaste 0.5 inches anterior chest wall every 8 hours Trend troponin every 6 hours x 3 sets Supplemental oxygen to maintain O2 saturation greater than 92% Patient is being followed by cardiology service, Dr. Gonzalez Heparin drip per hospital protocol Elevated lactic acid: Check procalcitonin, follow up with the results Check blood culture, follow up with the results Consider starting empiric antibiotic therapy if patient develops any tachycardia, tachypnea, fever or other focal signs of infection or if procalcitonin is elevated Fluid resuscitation with lactated Ringer's 30 mL/kg Repeat lactic acid in a.m. CKD stage 3: Avoid nephrotoxic agents when possible Renally dose all medications when possible Monitor intake and output Weight patient daily Diabetes mellitus type 2: Check hemoglobin A1c in a.m. Glucometer checks a.c. and HS 1800 ADA diet once patient is no longer NPO Humulin R sliding scale Hypertension, hyperlipidemia, PVD: Consider resuming home medications once they have been reconciled. Home medications has been reconciled at time of admission. For now: Hydralazine 10 mg IV every 4 hours for systolic blood pressure greater than 160 mmHg Atorvastatin 40 mg by mouth once daily We will be holding DAPT per Cardiology recommendations according to emergency room physician. GI prophylaxis, famotidine DVT prophylaxis, heparin drip per Cardiology recommendations ADVANCED CARE PLANNING 1. Which of the following were discussed? Hospice Care - Yes Therapeutic options - yes Advance Directives - Yes - patient states he does not have any advance directives in place at this time however his friend of 60 years, Bronwyn Trujillo can make decisions for him if he becomes unable. Other discussions - patient wishes to remain a full code at this time 2. Discussed with who? Patient 3. Voluntary nature of this service was explained to the patient? Yes 4. Amount of time spent - ___16 minutes____ 5. Reviewed by Physician? (if this service was performed by NPP) Yes This document was generated in part using voice recognition software, occasional wrong word or sound alike substitutions may have occurred due to the inherent limitations of voice recognition software. Read the chart carefully and recognize using context, where the substitutions have occurred. Although every effort was made to edit the content, personal consultant and typing errors may occur ATTESTATION BY PHYSICIAN I have seen and examined the patient. I reviewed the documentation, medical decision making, and treatment plan as noted by the mid-level provider above. I agree with the findings and plan of care. ASHOK DE LUNA [facility] Feb 28, 2025 02:21
[2025-02-28] MEDS ORDERED: PoTASSium chloRIDE 20MEQ ER 20 MEQ ERTAB PO PRN (02:30)
[2025-02-28] MEDS ORDERED: PoTASSium chl 10% ELIXIR 20MEQ 20 MEQ/15 ML UDCUP PO PRN (02:30)
[2025-02-28] MEDS ORDERED: LACTULOSE 20 GM/30 ML UDCUP PO PRN (02:30)
--- NOTE | 2025-02-28 02:46 | EKG ---
[facility] Test Date: 2025-02-28 Test Time: 00:28:21 Pat Name: MJ HALL Department: EDHIP Room: ED 20 Gender: M Criminal Justice Professor: [id number] : 1945 Requested By: EDDY AYALA Order Number: [id number] Reading MD: Clifton Juarez Measurements Intervals [place] Rate: 108 P: 59 SD: 159 QRS: -13 QRSD: 158 T: 161 QT: 338 QTc: 452 Interpretive Statements Sinus tachycardia Left bundle branch block Sgarbossa criteria for acute anterior [place] Electronically Signed On 02-28-2025 14:42:02 CDT by Clifton Juarez Please click the below link to view image of tracing.
--- NOTE | 2025-02-28 02:46 | EKG ---
[facility] Test Date: 2025-02-27 Test Time: 22:28:06 Pat Name: MJ HALL Department: EDHIP Room: ED 20 Gender: M Color Grinder: [id number] : 1945 Requested By: EDDY AYALA Order Number: [id number] Reading MD: Clifton Juarez Measurements Intervals [place] Rate: 114 P: 81 RI: 151 QRS: -14 QRSD: 139 T: 173 QT: 341 QTc: 471 Interpretive Statements Sinus tachycardia Left bundle branch block ST elevation secondary to IVCD Compared to ECG 03/09/2022 13:33:24 Left bundle-branch block now present Sgarbossa Criteria for acute anterior [place] Electronically Signed On 02-28-2025 14:41:25 CDT by Clifton Juarez Please click the below link to view image of tracing.
[2025-02-28 02:54] LABS: PHOSPHORUS 1.4 mg/dL (2.5-4.9)
[2025-02-28] MEDS: ASPIRIN 81MG CHEW TAB PO ONE (04:05)
[2025-02-28] MEDS: LACTATED RINGERS 1000ML 1,000 ML IV SCH (04:22)
[2025-02-28] MEDS: NITROGLYCERIN 1GM OINT 1 INCH/1GM TD SCH (04:22)
[2025-02-28] MEDS: LACTATED RINGERS 1000ML 2,190 ML IV ONE (04:22)
[2025-02-28] MEDS: ZOSYN 3.375GM +NS 50ML IV SCH (04:22)
[2025-02-28 07:54] LABS: INR 1.14 (0.85-1.15)
--- NOTE | 2025-02-28 07:56 | NUR ---
LACTIC ACID 3.3
--- NOTE | 2025-02-28 08:00 | NUR ---
CALLED DR. CLAY, NOTIFY HER OF CRITICAL RESULTS. CALLED DR. GONZALEZ FOR NEW CONSULT, PENDING A CALL BACK.
[2025-02-28 08:31] LABS: ASPARTATE AMINOTRANSFERASE 43.0 U/L (10-37); TOTAL PROTEIN, SERUM 7.0 g/dL (6.0-8.3)
--- NOTE | 2025-02-28 08:33 | NUR ---
PTT 111.3 HELD HEPARIN DRIP FOR 1 HOUR AND THEN DECREASING IT BY [address]RS[address] AMRITA ROCHA CO SIGNED.
--- NOTE | 2025-02-28 08:39 | NUR ---
SPOKE WITH DR. MEDEL( CARDIOLOGY), DISCUSS PATIENT PLAN OF CARE.
--- NOTE | 2025-02-28 08:42 | NUR ---
PENDING ORDERS FROM CARDIOLOGY.
[2025-02-28] MEDS: ASPIRIN 81 MG EC TAB PO SCH (08:44)
[2025-02-28] MEDS ORDERED: FAMOTIDINE 20MG TAB PO SCH (09:00)
--- NOTE | 2025-02-28 09:15 | NUR ---
DR. MEDEL ROUNDED DR. OBED DENTON
--- NOTE | 2025-02-28 09:30 | CONS ---
[facility] Cardiology Consultation Note Cardiology consultation February 28, 2025 Chief complaint: This is an 79-year-old male who presents with shortness disturbance nausea vomiting and retrosternal chest pain. He has a left bundle branch block on his EKG and troponins have gone from normal to 3002 around midnight and 8000 this morning. He is currently pain-free on heparin and nitrates. 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 He has had multiple stenting procedures in the past. Was found to have progression of disease and underwent aortocoronary bypass graft surgery three years ago with Dr. Bell. At that time he received a IRIZARRY graft to the LAD sequential vein graft to the obtuse marginal artery and PDA and vein graft to the diagonal artery. A CT coronary angiogram was performed in October of this year and showed an atretic IRIZARRY graft. Remaining grafts were patent. Some consideration was given at that time to stenting of the left main and proximal LAD were his anginal pattern was stable taking nitroglycerin less than once a month with relief. Yesterday developed generalized weakness difficulty ambulating visual disturbances throat tightness retrosternal pain nausea and vomiting and came to the emergency room. Electrocardiogram showed a left bundle branch block. An troponins has been elevated as noted above. He is currently pain-free. Past medical history: The patient has a history of dyslipidemia. He has a history of peripheral arterial disease and is status post a remote right and left femoral bypasses with subsequent left iliofemoral bypass with a cadaver vein by Dr. Bell in 2022. He has a history of diabetes mellitus type and hypertension. Review of systems: No recent syncope PND orthopnea or pedal edema. No fevers sweats or chills. No hemoptysis hematemesis or melena. Social history: He is a nonsmoker nondrinker Family history: He has a positive family history for early atherosclerotic heart disease Surgical history: As outlined above aortocoronary bypass graft surgery and procedures for peripheral arterial disease. Allergies: Intolerance to morphine sulfate Exam: Blood pressure 140/80 heart rate is 106 per minute. He is afebrile. There was no elevation of the jugular venous pressure no bruits S1 normal S2 physiologically split. 1/6 systolic ejection murmur is present at the base. No diastolic component appreciable. Abdomen is soft. Extremities show no edema. Post sternotomy changes are noted. Posterior tibial pulses are absent. He is alert and oriented. Laboratory studies: White count 4.0 hemoglobin platelet count [id number]. Potassium 4.0 BUN21 creatinine 1.5 estimated GFR of 46. Troponins has been twenty-three, 3055 and 8012. Chest x-ray: Heart size is normal post sternotomy changes are noted. Mild passive congestive changes are present. No effusions or infiltrates. Some fluid is noted in the right minor fissure. Assessment: 1. Non ST-elevation WI presenting as chest pain throat tightness nausea vomiting and disequilibrium now with late presentation and troponins of a 1000. 2. Remote myocardial infarctions and subsequent stenting procedures with subsequent aortocoronary bypass graft surgery with a IRIZARRY graft to the LAD, sequential vein graft to the obtuse marginal artery and PDA and vein graft to the diagonal artery 2021 with documented an atretic IRIZARRY graft October 2024 managed medically 3. Peripheral arterial disease status post right and left femoral artery bypasses and left iliofemoral cadaver bypass 4. Hypertension 5. Diabetes mellitus type 2 6. Dyslipidemia Plan: At this point the infarct might be a completed event. Electrocardiogram would not be helpful as it shows a left bundle branch block. We will obtain a 2D echo to look at regional wall motion. If there is severe hypokinesis or akinesis of the anterior wall I would recommend medical management and Lexiscan Cardiolite stress test prior to hospital discharge for risk stratification. If on the other hand there was significant wall motion preservation of the anterior wall we will consider left heart catheterization and stenting of the protected left main into the LAD. The patient had some neurologic symptoms on presentation we will obtain a CT scan of the head. We will resume beta joni therapy to lower his heart rate continue with nitrates heparin aspirin and clop idogrel. Transferred to BONITA MEDEL MD Feb 28, 2025 09:30
--- NOTE | 2025-02-28 09:59 | NUR ---
EKG DONE PER DR. CLAY ORDERS. PENDING DUO NEB TREATMENT; RESPIRATORY THERAPY AWARE.
[2025-02-28 10:27] VITALS: PULSE 91; RESP 24
--- NOTE | 2025-02-28 10:57 | NUR ---
DCP: HOME Sw met with who lives at home alone. Pt has home in [facility]. Pt reports he remains independent, drives, manages his home and ADLS on his own. Pt has a walk in shower, walker and cane if needed. No HH. Dr Cory Delgado at [place] is pt's pcp for medical care and meds. Friend Haley Amador [phone] o bring cell phone, where pt has daughter Garrick's #. Janelle is pt's MPOA, pt states [place] has ADV directives on file. Pt to return home at ne. Addendum: 02/28/25 at 1102 by NACHO DURAN Amended: Links added.
--- NOTE | 2025-02-28 11:05 | NUR ---
CALLED DR. CLAY TO NOTIFY HER PATIENTS BLOOD GLUCOSE WAS 75. NO ORDERS. TOLD ME TO CALL DR. MEDEL ([employer]OCIATE) AND [place] IF PATIENT WILL BE GOING FOR A HEART INTERVENTION AND ASK ABOUT POSSIBLE DIET. CALLED DR. MEDEL FOR DIET AND POSSIBLE PROCEDURE CLARIFICATION. HE STATED OK TO FEED PATIENT. CALLED DR. CLAY FOR UPDATE; NO ANSWER.
--- NOTE | 2025-02-28 11:31 | NUR ---
PLACED PATIENT IN A HEART HEALTHY DIET. CALLED DIET DEPARTMENT; NO ANSWER. LEFT A MESSAGE.
--- NOTE | 2025-02-28 12:00 | EKG ---
[facility] Test Date: 2025-02-28 Test Time: 09:56:18 Pat Name: MJ HALL Department: EDHIP Room: ED 20 Gender: M Sifter And Miller: [id number] : 1945 Requested By: MONROE CLAY Order Number: [id number] Reading MD: Clifton Juarez Measurements Intervals [place] Rate: 96 P: 45 NE: 146 QRS: -20 QRSD: 151 T: 137 QT: 365 QTc: 462 Interpretive Statements Sinus rhythm Left bundle branch block Sgarbossa criteria for acute anterior [place] Electronically Signed On 02-28-2025 14:43:47 CDT by Clifton Juarez Please click the below link to view image of tracing.
--- NOTE | 2025-02-28 14:17 | HMCSR ---
APPROVED REPORT EXAM: Two-dimensional and M-mode echocardiogram with Doppler and color Doppler. INDICATION ICD: Non ST-elevation ME I21.4 2D Dimensions RVDd4.2 cmLVEF(%)38.2 (>50%)LVED Vol(simp.)135.0 mL IVSd1.2 (0.7-1.1cm)FS(%)19 %LVES Vol(simp.)90.0 mL LVDd5.5 (3.8-5.6cm)LA (2D)4.4 (1.6-4.0cm)LVEF(%, simp.)33 % PWd0.8 (0.7-1.1cm)Ao Root(2D)3.4 (2.0-3.7cm)LA ESV INDEX (BP)23.61 mL/m2 IVSs1.0 cmLVOT diam2.5 (1.8-2.4cm) LVDs4.5 (2.5-4.0cm) PWs1.5 cm Deformation Strain Apical 4-7.5 % Apical 2-9.7 % Apical 3-9.6 % Global Strain-8.9 % M-Mode Dimensions EPSS3.1 cm LA (MM)5.4 (1.6-4.0cm) Ao Root(MM)3.5 (2.0-3.7cm) Aortic Valve AoV Vmax1.5 m/Anderson Peak GR9.0 mmHgLVOT Vmax1.0 m/s AoV VTI0.2 mAo Mean GR4.3 mmHgLVOT VTI0.16 m EL (VMAX)3.37 cm2AVA (VTI) 3.7 cm2 Mitral Valve MV E Tdmw211.4 cm/sDECEL Vtst665 ms MV A Nmpz881.2 cm/sP 1/2 T35 ms E/A ratio1.0MVA (PHT)6.3 cm2 TDI E/E' Ljfxva34.4E/E' Mgfxnts06.9 Medial E' Peak V5.52 cm/sLateral E' Peak V7.55 cm/s Pulmonary Valve PV Vmax1.0 m/sPV VTI0.13 mPV Mean GR1.9 mmHg PV Peak GR3.9 mmHg Tricuspid Valve TR Vmax2.8 m/sRAP (EST) 3 vbLiGVHT30.0 mmHg TR Peak GR31.0 mmHg Left Ventricle The left ventricle is normal size. Reduced GLS -9.0% Dyskinetic septum and akinetic apex. Mild concen tric left ventricular hypertrophy. LVEF is 30-35%. 3D volume EF 32% Suspected apical thrombus Stage I I, diastolic dysfunction. Right Ventricle The right ventricle is mildly dilated. Right ventricular systolic function is moderately reduced. Atria The left atrium size is normal. The right atrium size is normal. Aortic Valve The aortic valve appears thickened and mildly calcified. No aortic regurgitation is present. There is no aortic valvular stenosis. Mitral Valve The mitral valve is normal in structure. There is no mitral valve regurgitation noted. There is no mi tral valve stenosis. Tricuspid Valve The tricuspid valve is normal in structure. There is tracetricuspid valve regurgitation noted. Pulmonic Valve The pulmonary valve is normal in structure. There is no pulmonic valvular regurgitation. Great Vessels The aortic root is normal in size. The IVC is normal in size and collapses >50% with inspiration. Pericardium There is no pericardial effusion. Other Information Quality : Adequate Conclusion LVEF is 30-35%. 3D volume EF 32% Reduced GLS -9.0% Dyskinetic septum and akinetic apex. The right ventricle is mildly dilated. Suspected apical thrombus
--- NOTE | 2025-02-28 15:00 | NUR ---
PTT 67.8. HEPARIN DRIP STAYS AT 14.99 UNITS/KG/HR. NO CHANGES. NEXT PTT WILL BE AT 0400.
[2025-02-28 15:14] LABS: INR 1.22 (0.85-1.15)
--- NOTE | 2025-02-28 16:00 | PN ---
[facility] PROGRESS NOTE Date of Service: Feb 28, 2025 Time of Service: 16:00 SUBJECTIVE: He is a 79-year-old male past medical history of Diabetes mellitius type2, hyperlipidemia, hypertension, peripheral artery disease, bladder CA came to ER with chief complaint of chest pain since yesterday. Location is midsternal. Duration is on and off. Character is described as pressure. There was no alleviating factors. There was no aggravating factors. Patient reports associated nausea and vomiting x1 episode as well as shaking. Surgical history includes Left femoral popliteal bypass, CABG x4, cataract surgery. He drinks one beer that is 12 oz about once a week In the emergency department platelets 124, creatinine 1.5, BUN 21, initial troponin unremarkable, BNP unremarkable, no urinalysis has been collected or sent to lab. Chest x-ray is unremarkable. Repeat troponin is 3055. Emergency room physician contacted mechanic chief on- call, Dr. Gonzalez who requested patient be admitted under hospitalist service. Patient is kept NPO. No need for Plavix for ticagrelor. Patient started on a heparin drip. 02/28/2025: Patient is seen and evaluated in the ER. He has mild chest pain and has no other symptoms. His examination is normal and his vitals are in the normal range. His labs are in the normal range except WBC 4, platelets 124,bilirubin is 1.1, AST is 43, HbA1c 6.5, procalcitonin is 8.81, BUN is 21, creatinine is 1.5, phosphorus is 1.4, magnesium is 1.6, creatine kinase is 28. His lactic acid level is 3.3>3>3.1. When he was receiving heparin his APTT is increased to 111.3. So the nurse stopped heparin for an hour and then she resumed heparin. His recent APTT is 67.8. His EKG showed ST segment elevation in V1 to V4. Cardiology saw the patient and they are ordered 2D echo. Also on echocardiogram if there is severe hypokinesis or akinesis of the anterior wall then they recommended medical management and Lexiscan Cardiolite stress test prior to hospital discharge for risk stratification and on the other hand if there was significant wall motion preservation of the anterior wall then they will consider left heart catheterization and stenting of the protected left main into the LAD. Echocardiogram showed that left ventricular ejection fraction is 30-35%, dyskinetic septum and akinetic apex, the right ventricle is mildly dilated and suspected apical thrombus. As he had some neurological symptoms his CT head was also done and we are waiting for the report. As is magnesium and phosphorus are low we replaced them. He is started on heart healthy diet. REVIEW OF SYSTEMS CONSTITUTIONAL: Denies fevers, chills, or night sweats. No unintentional weight loss reported. NEUROLOGICAL: Denies headache, amaurosis fugax, motor weakness, sensory deficit, vertigo/spinning sensation, gait abnormalities, or tremors. ENT: No hearing loss, otalgia, otorrhea, rhinitis, rhinorrhea, hoarseness, or sore throat. CARDIOVASCULAR: Chest pain Denies any exertional angina, dyspnea on exertion, orthopnea, paroxysmal nocturnal dyspnea, palpitations, life-threatening arrhythmias, claudication. PULMONARY: Denies any shortness of breath, cough, phlegm/sputum, hemoptysis, pleuritic chest pain. SLEEP: Denies morning headaches, daytime somnolence or napping. Denies difficulty falling asleep, staying asleep, waking from sleep. Denies knowledge of snoring. GASTROINTESTINAL: Denies any type of dysphagia to either liquids or solids. Denies nausea, vomiting, pyrosis, early satiety, abdominal pain, diarrhea, constipation, or changes in stool consistency or caliber. Denies coffee-ground emesis, hematemesis, hematochezia, or melanotic stools. GENITOURINARY: Denies frequency, urgency, nocturia, hematuria or incontinence (Storage/Irritative symptoms.) Low urinary stream, straining to void, urinary intermittency or hesitancy, splitting of the voiding stream, terminal dribbling. ENDOCRINOLOGIC: Denies polyuria, polydipsia, polyphagia or heat/cold intolerances. HEMATOLOGIC: Denies thrombophilia/previous clots, or coagulopathy/bleeding disorders. ONCOLOGIC: Denies personal history of malignancy. DERMATOLOGIC: Denies rashes or pruritus. PSYCHIATRIC: Denies any suicidal or homicidal ideation. Denies hallucinations. PHYSICAL EXAM GENERAL APPEARANCE: The patient is awake, alert, and oriented, in no acute cardiopulmonary distress. NEUROLOGICAL: Cranial nerves II-XII grossly intact. Motor is 5/5 in bilateral upper and lower extremities proximal to distal. No sensory deficits. HEENT: Face is symmetric. Pupils are equal and reactive. Extraocular movements are intact. NECK: Supple. No JVD. No thyromegaly. No submental, submandibular, pre- /postauricular, occipital or supraclavicular lymphadenopathy. CHEST: Normal chest expansion. No Telemetry. LUNGS: Absence of any rales, rhonchi or any wheezing. CARDIOVASCULAR: Regular. S1 and S2 normal. No appreciable rubs, murmurs or gallops. ABDOMEN: Soft, nontender, and nondistended. There is no rebound, voluntary guarding, or rigidity. : Deferred. No Peters. EXTREMITIES: Non-edematous and not cyanotic. No clubbing. Good capillary refill. SKIN: No skin breakdown. Vital Signs (last 8hr) Date Time Temp Pulse Resp B/P (MAP) Pulse Ox O2 Delivery O2 Flow Rate FiO2 02/28/25 12:00 97.9 92 21 109/47 97 Room Air* 0 21 02/28/25 10:27 91 24 LABS: Laboratory: Test 02/28/25 14:54 02/28/25 12:27 02/28/25 11:21 02/28/25 07:30 Range/Units Prothrombin Time 12.7 H 9.6-11.6 SEC Prothromb Time International Ratio 1.22 H 0.85-1.15 Activated Partial Thromboplast Time 67.8 #H 26.3-35.5 SEC Lactic Acid Level 3.5 H 0.8-2.5 mmol/L Troponin I High Sensitivity 7228 *H 4-75 ng/L Whole Blood Glucose 75 70-110 MG/DL Total Bilirubin 1.1 H 0.2-1.0 mg/dL Direct Bilirubin 0.3 0.0-0.3 mg/dL Aspartate Amino Transf (AST/SGOT) 43 H 10-37 U/L Alanine Aminotransferase (ALT/SGPT) 24 12-78 U/L Alkaline Phosphatase 70 50-136 U/L Total Protein 7.0 6.0-8.3 g/dL Albumin 3.4 L 3.5-5.0 g/dL Thyroid Stimulating Hormone (TSH) 0.79 # 0.36-3.74 uIU/mL Test 02/28/25 02:31 02/28/25 02:25 02/28/25 00:43 02/27/25 22:50 Range/Units Hemoglobin A1c 6.5 H 4.0-6.0 % Estimated Average Glucose (eAG) 140 H 70-126 mg/dL Phosphorus Level 1.4 L 2.5-4.9 mg/dL Magnesium Level 1.60 L 1.80-2.40 mg/dL Procalcitonin 8.81 H 0.05-0.5 ng/mL Total Creatine Kinase 284 #H 21-232 U/L White Blood Count 4.0 L 4.8-10.8 K/uL Red Blood Count 5.15 4.50-6.20 MIL/uL Hemoglobin 15.1 14.0-18.0 g/dL Hematocrit 45.8 42-54 % Mean Corpuscular Volume 88.9 79-99 fL Mean Corpuscular Hemoglobin 29.3 27.0-33.0 pg Mean Corpuscular Hemoglobin Concent 33.0 32.0-36.0 g/dL Red Cell Distribution Width 14.4 11.0-15.5 % Platelet Count 124 L 130-400 K/uL Mean Platelet Volume 10.7 H 7.5-10.5 fL Immature Granulocyte % (Auto) 0.3 0-1 % Neutrophils (%) (Auto) 81.3 H 40.0-77.0 % Lymphocytes (%) (Auto) 14.8 L 21.0-51.0 % Monocytes (%) (Auto) 1.8 L 3.0-13.0 % Eosinophils (%) (Auto) 1.5 0.0-8.0 % Basophils (%) (Auto) 0.3 0.0-5.0 % Neutrophils # (Auto) 3.2 1.8-7.7 K/uL Lymphocytes # (Auto) 0.6 L 1.0-4.8 K/uL Monocytes # (Auto) 0.1 0.1-1.0 K/uL Eosinophils # (Auto) 0.06 0.00-0.70 K/uL Basophils # (Auto) 0.01 0.00-0.20 K/uL Absolute Immature Granulocyte (auto 0.01 0-1 K/uL Nucleated Red Blood Cells 0.0 0.0-0.19 % Sodium Level 140 136-145 mmol/L Potassium Level 4.0 3.5-5.1 mmol/L Chloride Level 105 101-111 mmol/L Carbon Dioxide Level 25 21-32 mmol/L Blood Urea Nitrogen 21 H 7-18 mg/dL Creatinine 1.5 H 0.5-1.3 mg/dL Glomerular Filtration Rate Calc 46 >90 mL/min Random Glucose 97 70-105 mg/dL Total Calcium 8.5 8.5-10.1 mg/dL B-Type Natriuretic Peptide 16 0-100 pg/mL Lipase 70 16-77 U/L Current Medications Medications (Trade) Dose Ordered Sig/Stas Route PRN Reason Start Time Stop Time Status Last Admin Dose Admin Aspirin (Aspirin 81mg Ec Tab) 81 mg DAILY PO 02/28/25 09:00 03/30/25 08:59 02/28/25 08:44 81 MG Atorvastatin Calcium (LIPItor 40MG) 40 mg HS PO 02/28/25 21:00 03/30/25 20:59 Clopidogrel Bisulfate (plaVIX 75MG) 75 mg DAILY PO 03/01/25 09:00 03/31/25 08:59 Famotidine (Pepcid 20mg Tab) 20 mg DAILY PO 02/28/25 09:00 02/28/25 07:20 DC Heparin Sodium (Porcine) (HEParin 5,000 UNIT VIAL) *calculation based on ACTUAL B... AD PRN IV HEPARIN PROTOCOL 02/28/25 02:00 03/30/25 01:59 Heparin Sodium/ Dextrose 250 ml @ 0 mls/hr Q6H IV 02/28/25 02:00 03/30/25 01:59 02/28/25 15:33 12.65 MLS/HR Hydralazine HCl (APRESOLine 20MG INJ) 10 mg Q6H PRN IV For:SBP above 160;DBP above 90 02/28/25 02:30 03/30/25 02:29 Insulin Human Regular (humuLIN R 100 UNIT/ML 3ML) INSULIN SLIDING SCAL... ACHS SQ 02/28/25 07:30 03/30/25 07:29 Lactated Ringer's 1,000 ml @ 75 mls/hr [id number] IV 02/28/25 02:30 03/30/25 02:29 02/28/25 04:22 75 MLS/HR Lactulose (Constulose 20gm/ 30ml Udcup) 20 gm BID PRN PO CONSTIPATION 02/28/25 02:30 03/30/25 02:29 Lisinopril (Prinivil 2.5mg) 2.5 mg DAILY PO 03/01/25 09:00 03/31/25 08:59 Magnesium Sulfate 50 ml @ 0 mls/hr PROTOCOL PRN IV h 02/28/25 02:30 03/30/25 02:29 Metoprolol Tartrate (loprESSOR) 25 mg BID PO 02/28/25 21:00 03/30/25 20:59 Morphine Sulfate (morPHINE 2MG SYG) 2 mg Q4H PRN IVP SEVERE PAIN (7-10) 02/28/25 02:30 03/07/25 02:29 Nitroglycerin (Nitroglycerin 1gm Oint) 0.5 inch Q8H TD 02/28/25 02:30 03/30/25 02:29 02/28/25 09:52 0.5 INCH Nitroglycerin (Nitrostat) 0.4 mg AD PRN SL CHEST PAIN 02/28/25 01:30 02/28/25 02:21 DC Ondansetron HCl (zoFRAN 4MG INJ) 4 mg Q6H PRN IV NAUSEA/VOMITING 02/28/25 02:30 03/30/25 02:29 Pantoprazole Sodium (PROTonix 40MG INJ) 40 mg DAILY IVP 02/28/25 07:30 03/30/25 07:29 02/28/25 09:43 40 MG Piperacillin Sod/ Tazobactam Sod (Zosyn 3.375gm+NS 50ml) 3.375 gm Q8H IV 02/28/25 04:00 03/10/25 03:59 02/28/25 13:18 3.375 GM Potassium Chloride 100 ml @ 100 mls/hr AD PRN IV POTASSIUM PROTOCOL 02/28/25 02:30 03/30/25 02:29 Potassium Chloride (K-Dur/Klor-Con 20meq) 20 meq AD PRN PO POTASSIUM PROTOCOL 02/28/25 02:30 03/30/25 02:29 Potassium Chloride (KCl 10% Elixir 20meq/15ml) 20 meq AD PRN PO POTASSIUM PROTOCOL 02/28/25 02:30 03/30/25 02:29 DIAGNOSTICS / RADIOLOGY: [place] [id number] [id number] IMAGING REPORT Signed PATIENT: MJ HALL MR#: [id number] : 1945 SEX: M AGE: 79 LOCATION: [facility] ORDER 0 STATUS: ADM IN REPORT#: [id number] SERVICE 9 REASON: NonSTEMI ORDERING PHYSICIAN: BONITA MEDEL MD PROCEDURE: ECHO CMP - ECHO 2-D COMPLETE APPROVED REPORT EXAM: Two-dimensional and M-mode echocardiogram with Doppler and color Doppler. INDICATION ICD: Non ST-elevation IL I21.4 2D Dimensions RVDd 4.2 cm LVEF(%) 38.2 (>50%) LVED Vol(simp.) 135.0 mL IVSd 1.2 (0.7-1.1cm) FS(%) 19 % LVES Vol(simp.) 90.0 mL LVDd 5.5 (3.8-5.6cm) LA (2D) 4.4 (1.6-4.0cm) LVEF(%, simp.) 33 % PWd 0.8 (0.7-1.1cm) Ao Root(2D) 3.4 (2.0-3.7cm) LA ESV INDEX (BP) 23.61 mL/m2 IVSs 1.0 cm LVOT diam 2.5 (1.8-2.4cm) LVDs 4.5 (2.5-4.0cm) PWs 1.5 cm Deformation Strain Apical 4 -7.5 % Apical 2 -9.7 % Apical 3 -9.6 % Global Strain -8.9 % M-Mode Dimensions EPSS 3.1 cm LA (MM) 5.4 (1.6-4.0cm) Ao Root(MM) 3.5 (2.0-3.7cm) Aortic Valve AoV Vmax 1.5 m/s Ao Peak GR 9.0 mmHg LVOT Vmax 1.0 m/s AoV VTI 0.2 m Ao Mean GR 4.3 mmHg LVOT VTI 0.16 m EL (VMAX) 3.37 cm2 EL (VTI) 3.7 cm2 Mitral Valve MV E Vmax 112.4 cm/s DECEL Time 141 ms MV A Vmax 113.2 cm/s P 1/2 T 35 ms E/A ratio 1.0 MVA (PHT) 6.3 cm2 TDI E/E' Medial 20.4 E/E' Lateral 14.9 Medial E' Peak V 5.52 cm/s Lateral E' Peak V 7.55 cm/s Pulmonary Valve PV Vmax 1.0 m/s PV VTI 0.13 m PV Mean GR 1.9 mmHg PV Peak GR 3.9 mmHg Tricuspid Valve TR Vmax 2.8 m/s RAP (EST) 3 mmHg RVSP 34.0 mmHg TR Peak GR 31.0 mmHg Left Ventricle The left ventricle is normal size. Reduced GLS -9.0% Dyskinetic septum and akinetic apex. Mild concentric left ventricular hypertrophy. LVEF is 30-35%. 3D volume EF 32% Suspected apical thrombus Stage II, diastolic dysfunction. Right Ventricle The right ventricle is mildly dilated. Right ventricular systolic function is moderately reduced. Atria The left atrium size is normal. The right atrium size is normal. Aortic Valve The aortic valve appears thickened and mildly calcified. No aortic regurgitation is present. There is no aortic valvular stenosis. Mitral Valve The mitral valve is normal in structure. There is no mitral valve regurgitation noted. There is no mitral valve stenosis. Tricuspid Valve The tricuspid valve is normal in structure. There is tracetricuspid valve regurgitation noted. Pulmonic Valve The pulmonary valve is normal in structure. There is no pulmonic valvular regurgitation. Great Vessels The aortic root is normal in size. The IVC is normal in size and collapses >50% with inspiration. Pericardium There is no pericardial effusion. Other Information Quality : Adequate Conclusion LVEF is 30-35%. 3D volume EF 32% Reduced GLS -9.0% Dyskinetic septum and akinetic apex. The right ventricle is mildly dilated. Suspected apical thrombus DICTATED BY: BONITA MEDEL MD DATE: 02/28/25 1106 ELECTRONICALLY SIGNED BY: BONITA MEDEL MD DATE: 02/28/25 1417 ASSESSMENT: NSTEMI, POA Shaking of limbs, POA Hyperlactatemia, POA Thrombocytopenia mild, POA CKD stage IIIA Diabetes mellitius type2 Hypomagnesemia,POA Hypophosphatemia, POA Hypertension Hyperlipidemia Peripheral artery disease PLAN: NSTEMI, POA Today he is having mild chest pain. His EKG showed ST segment elevation in V1 to V4. Cardiology saw the patient and they are ordered 2D echo. Also on echocardiogram if there is severe hypokinesis or akinesis of the anterior wall then they recommended medical management and Lexiscan Cardiolite stress test prior to hospital discharge for risk stratification and on the other hand if there was significant wall motion preservation of the anterior wall then they will consider left heart catheterization and stenting of the protected left main into the LAD. Echocardiogram showed that left ventricular ejection fraction is 30-35%, dyskinetic septum and akinetic apex, the right ventricle is mildly dilated and suspected apical thrombus. Shaking of limbs, POA He had shaking of limbs at the time of onset of chest pain but now he has no symptoms. CT head is ordered to rule out any neurological conditions and we are waiting for the result. Hyperlactatemia, POA Today his lactate levels are 3.1>3.3>3.0>3.5. We will repeat his labs tomorrow Thrombocytopenia mild, POA Blood work showed platelet count is 124. Will repeat his labs tomorrow CKD stage IIIA His blood work showed that the BUN is 21 and creatinine is 1.5 Will repeat his labs tomorrow. Diabetes mellitius type2 His hemoglobin A1c is 6.5. Today his blood glucose level is 114. He is on sliding scale insulin. Hypomagnesemia,POA Today his magnesium is 1.6. We replaced the magnesium Will repeat his labs tomorrow Hypophosphatemia, POA Today his phosphorus is 1.4 . We replaced the phosphorous. Will repeat his labs tomorrow Hypertension Today's blood pressure is 109/47. Take her lisinopril 2.5 mg, metoprolol [id number] mg Hyperlipidemia Continue atorvastatin 40 mg. Peripheral artery disease Continue aspirin and clopidogrel. DVT prophylaxis with SCD, heparin. GI prophylaxis with pantoprazole. He is on a heart healthy diet. ATTESTATION BY PHYSICIAN I have seen and examined the patient. I reviewed the documentation, medical decision making, and treatment plan as noted by the resident provider above. I agree with the findings and plan of care. Sandeep Morataya MD, AKSHAY MD Feb 28, 2025 16:00
--- NOTE | 2025-02-28 16:30 | NUR ---
BLOOD GLUCOSE 114. NO INSULIN COVERAGE NEEDED AT THIS TIME.
--- NOTE | 2025-02-28 17:25 | HMCIMG ---
EXAM: CT Head Without Intravenous Contrast. CLINICAL HISTORY: 79-year-old male ataxia. TECHNIQUE: Axial computed tomography images of the head/brain without intravenous contrast. Dose reduction technique was used including one or more of the following: automated exposure control, adjustment of mA and kV according to patient size, and/or iterative reconstruction. CONTRAST: None. COMPARISON: None. FINDINGS: BRAIN: No acute intraparenchymal hemorrhage. No mass lesion. No CT evidence for acute territorial infarct. No midline shift or extra-axial collection. Moderate atrophy. Moderate chronic ischemic changes. VENTRICLES: No hydrocephalus. ORBITS: The orbits are unremarkable. SINUSES AND MASTOIDS: The paranasal sinuses and mastoid air cells are clear. SOFT TISSUES: No significant facial or scalp soft tissue swelling evident. No radiopaque foreign body is seen. BONES: No acute skull fracture. IMPRESSION: 1. No acute intracranial abnormality. 2. Moderate atrophy and moderate chronic ischemic changes. /[place]
[2025-02-28 21:41] LABS: APPEARANCE,URINE CLOUDY (CLEAR); GLUCOSE, URINE (UA) >=1000 mg/dL (NEGATIVE); LEUKOCYTE ESTERASE ,URINE 250 Leu/uL (NEGATIVE); NITRATE,URINE NEGATIVE (NEGATIVE); OCCULT BLOOD,URINE SMALL (NEGATIVE)
[2025-02-28 21:50] LABS: ADD UA MICROSCOPIC YES
[2025-02-28 21:52] LABS: SQUAMOUS EPITHELIAL CELL,UR RARE /HPF (0-2); WBC CLUMP FEW /HPF (0-1)
[2025-02-28 21:57] LABS: INR 1.28 (0.85-1.15)
--- NOTE | 2025-02-28 22:10 | NUR ---
PTT 93.9, HEPARIN DRIP HELD AT THIS TIME PER PROTOCOL FOR 60 MINUTES
--- NOTE | 2025-02-28 23:10 | NUR ---
HEPARIN DRIP RESUMED PER PROTOCOL, DECREASED BY 2 UNITS UNITS/KG/HR, NOW INFUSING @13 UNITS/KG/HR
[2025-02-28] MEDS ORDERED: TAMS-55 PO (23:34)
[2025-02-28] MEDS ORDERED: GLIP10TA16 PO (23:34)
[2025-02-28] MEDS ORDERED: ISOS60TA77 PO (23:34)
[2025-02-28] MEDS ORDERED: ASPI-1443 PO (23:34)
[2025-02-28] MEDS ORDERED: METO25TA6 PO (23:34)
[2025-02-28] MEDS ORDERED: CILO50TA2 PO (23:34)
[2025-02-28] MEDS ORDERED: EMPA25TA PO (23:34)
[2025-02-28] MEDS ORDERED: GABA-1405 PO (23:34)
[2025-02-28] MEDS ORDERED: BETA1TAB20 PO (23:34)
[2025-02-28] MEDS ORDERED: METF750T46 PO (23:34)
[2025-02-28] MEDS ORDERED: ATOR40TA71 PO (23:34)
[2025-02-28] MEDS ORDERED: FENO48TA10 PO (23:34)
[2025-03-01 03:27] LABS: IMMATURE GRANULOCYTE ABSOLUTE 0.05 K/uL (0-1); NUCLEATED RED BLOOD CELLS 0.0 % (0.0-0.19); PLATELET COUNT (AUTO) 94 K/uL (130-400); RED BLOOD CELL COUNT(AUTO) 4.66 MIL/uL (4.50-6.20); RED CELL DISTRIBUTION WIDTH 14.9 % (11.0-15.5); WHITE BLOOD COUNT (AUTO) 10.3 K/uL (4.8-10.8)
--- NOTE | 2025-03-01 03:29 | NUR ---
REPORT GIVEN TO LAKSHMI ROCHA
[2025-03-01 03:39] LABS: ASPARTATE AMINOTRANSFERASE 61.0 U/L (10-37); CREATININE 1.9 mg/dL (0.5-1.3); GLOMERULAR FILTR. RATE CALC 35.0 mL/min (>90); GLUCOSE,RANDOM 103.0 mg/dL (70-105); PHOSPHORUS 2.6 mg/dL (2.5-4.9); SODIUM SERUM 134.0 mmol/L (136-145); TOTAL PROTEIN, SERUM 6.1 g/dL (6.0-8.3); UREA NITROGEN, BLOOD 26.0 mg/dL (7-18)
[2025-03-01] MEDS: MAGNESIUM 2GM PREMIX 50ML 50 ML IV PRN (04:08)
[2025-03-01 04:25] LABS: INR 1.25 (0.85-1.15)
[2025-03-01 04:30] VITALS: BP 136/71; PULSE 83; RESP 18; TEMP 99; O2SAT 96
--- NOTE | 2025-03-01 06:59 | PN ---
[facility] Cardiology Progress Note CARDIOLOGY PROGRESS NOTE 2024 Problems: 1. Acute myocardial infarction with new left bundle branch block and Sgarbossa criteria for acute myocardial infarction 2. Remote history of myocardial infarction status post stenting procedures and subsequent aortocoronary bypass graft surgery with a IRIZARRY graft to the LAD sequential vein graft to the obtuse marginal artery and PDA and vein graft to the diagonal artery 2021 with documented atretic IRIZARRY graft October 2024 treated medically 3. Peripheral arterial disease status post right and left femoral artery bypasses and subsequent left iliofemoral cadaver bypass 4. Hypertension 5. Diabetes mellitus type 2 6. Dyslipidemia 7. Thrombocytopenia 8. Chronic kidney disease stage 3A I was notified of this consult at 8:40 a.m. yesterday. At the time the patient was pain-free. His troponin had gone up to 8000. His EKG showed a new left bundle branch block and met Sgarbossa criteria for acute myocardial infarction. It was suspected at time that this was already a completed event. The patient is currently pain-free. Denies any shortness of breath and is comfortable flat. No new murmurs are present. Blood pressure is running 120-130 systolic. Heart rate has been in the 70 and 80 range. He has a low-grade temperature of 99. White count 10.3 up from 4.0 hemoglobin 13.7 platelet count [id number]. Potassium 4.6 BUN 26 creatinine 1.9 up from 1.5 On admission. The patient continues on aspirin atorvastatin clopidogrel heparin protocol insulin scale lisinopril metoprolol tartrate pantoprazole and potassium protocol. On admission he also had visual disturbances and bilateral weakness. His CT scan of the head shows no acute intracranial abnormalities. His 2D echo shows ejection fraction of 30- 35% with hypokinetic septum and anterior wall as well as akinetic apex with thrombus. Unfortunately at this point his infarct appears to be completed. We will switch metoprolol over to metoprolol succinate today. I will administer heparin hours and watch his platelet count closely. We will consider switching over to Eliquis in24 hours for his apical thrombus. BONITA MEDEL MD Mar 01, 2025 06:58
[2025-03-01 07:51] VITALS: BP 132/60; PULSE 60; RESP 20; TEMP 98.7
[2025-03-01 08:00] VITALS: O2SAT 96
[2025-03-01] MEDS: 0.9%NACL 1000ML 1,000 ML IV SCH (09:26)
[2025-03-01] MEDS: LISINOPRIL 2.5 MG TABLET PO SCH (09:27)
[2025-03-01 12:00] VITALS: BP 130/65; PULSE 62; RESP 20; TEMP 98.6
[2025-03-01 13:47] LABS: CREATININE,URINE RANDOM 104.82 mg/dL (30-135)
--- NOTE | 2025-03-01 15:48 | PN ---
[facility] PROGRESS NOTE Date of Service: Mar 01, 2025 Time of Service: 15:29 SUBJECTIVE: He is a 79-year-old male past medical history of Diabetes mellitius type2, hyperlipidemia, hypertension, peripheral artery disease, bladder CA came to ER with chief complaint of chest pain since yesterday. Location is midsternal. Duration is on and off. Character is described as pressure. There was no alleviating factors. There was no aggravating factors. Patient reports associated nausea and vomiting x1 episode as well as shaking. Surgical history includes Left femoral popliteal bypass, CABG x4, cataract surgery. He drinks one beer that is 12 oz about once a week In the emergency department platelets 124, creatinine 1.5, BUN 21, initial troponin unremarkable, BNP unremarkable, no urinalysis has been collected or sent to lab. Chest x-ray is unremarkable. Repeat troponin is 3055. Emergency room physician contacted special events planner on- call, Dr. Gonzalez who requested patient be admitted under hospitalist service. Patient is kept NPO. No need for Plavix for ticagrelor. Patient started on a heparin drip. 02/28/2025: Patient is seen and evaluated in the ER. He has mild chest pain and has no other symptoms. His examination is normal and his vitals are in the normal range. His labs are in the normal range except WBC 4, platelets 124,bilirubin is 1.1, AST is 43, HbA1c 6.5, procalcitonin is 8.81, BUN is 21, creatinine is 1.5, phosphorus is 1.4, magnesium is 1.6, creatine kinase is 28. His lactic acid level is 3.3>3>3.1. When he was receiving heparin his APTT is increased to 111.3. So the nurse stopped heparin for an hour and then she resumed heparin. His recent APTT is 67.8. His EKG showed ST segment elevation in V1 to V4. Cardiology saw the patient and they are ordered 2D echo. Also on echocardiogram if there is severe hypokinesis or akinesis of the anterior wall then they recommended medical management and Lexiscan Cardiolite stress test prior to hospital discharge for risk stratification and on the other hand if there was significant wall motion preservation of the anterior wall then they will consider left heart catheterization and stenting of the protected left main into the LAD. Echocardiogram showed that left ventricular ejection fraction is 30-35%, dyskinetic septum and akinetic apex, the right ventricle is mildly dilated and suspected apical thrombus. As he had some neurological symptoms his CT head was also done and we are waiting for the report. As is magnesium and phosphorus are low we replaced them. He is started on heart healthy diet. 03/01/2025: Patient is seen and evaluated in the room 225. He has no symptoms today. His examination is normal and his vitals are in the normal range. His saturation is 96% on 2L of O2. His labs are in the normal range except for Hb is 13.7, HCT is 11.5, MPV is 11.5, APTT is 65.2, BUN is 26, Creatinine is 1.9, ma gnesium is 1.7, bilirubin is 1.7, AST 61. Blood culture showed no growth after [address] is unremarkable. Echocardiogram show that LVEF is 30 to 35%, suspected apical thrombus, dyskinetic septum, akinetic apex. Cardiology saw the patient and they switched metoprolol tartrate to metoprolol succinate, they administered heparin for another 24 hours and watch his platelet levels. They are also considering to change heparin to eliquis in 24 hours. Today morning the nurse administered him heparin, after administering heparin his PTT is elevated at 93.9. So she held heparin for an hour and then she restarted it at a decreased dose. He doesn't want PT. Urine electrolytes are in the normal range except for urine chloride which is 63. FeNa is 1%. We also ordered urine urea. Due to elevation in the liver enzymes we discontinued lactate ringer and started him on Normal saline. His urine culture showed >100,000 CFU. Identification and susceptibility are pending REVIEW OF SYSTEMS CONSTITUTIONAL: Denies fevers, chills, or night sweats. No unintentional weight loss reported. NEUROLOGICAL: Denies headache, amaurosis fugax, motor weakness, sensory deficit, vertigo/spinning sensation, gait abnormalities, or tremors. ENT: No hearing loss, otalgia, otorrhea, rhinitis, rhinorrhea, hoarseness, or sore throat. CARDIOVASCULAR: Denies any chest pain, exertional angina, dyspnea on exertion, orthopnea, paroxysmal nocturnal dyspnea, palpitations, life- threatening arrhythmias, claudication. PULMONARY: Denies any shortness of breath, cough, phlegm/sputum, hemoptysis, pleuritic chest pain. SLEEP: Denies morning headaches, daytime somnolence or napping. Denies difficulty falling asleep, staying asleep, waking from sleep. Denies knowledge of snoring. GASTROINTESTINAL: Denies any type of dysphagia to either liquids or solids. Denies nausea, vomiting, pyrosis, early satiety, abdominal pain, diarrhea, constipation, or changes in stool consistency or caliber. Denies coffee-ground emesis, hematemesis, hematochezia, or melanotic stools. GENITOURINARY: Denies frequency, urgency, nocturia, hematuria or incontinence (Storage/Irritative symptoms.) Low urinary stream, straining to void, urinary intermittency or hesitancy, splitting of the voiding stream, terminal dribbling. ENDOCRINOLOGIC: Denies polyuria, polydipsia, polyphagia or heat/cold intolerances. HEMATOLOGIC: Denies thrombophilia/previous clots, or coagulopathy/bleeding disorders. ONCOLOGIC: Denies personal history of malignancy. DERMATOLOGIC: Denies rashes or pruritus. PSYCHIATRIC: Denies any suicidal or homicidal ideation. Denies hallucinations. PHYSICAL EXAM GENERAL APPEARANCE: The patient is awake, alert, and oriented, in no acute cardiopulmonary distress. NEUROLOGICAL: Cranial nerves II-XII grossly intact. Motor is 5/5 in bilateral upper and lower extremities proximal to distal. No sensory deficits. HEENT: Face is symmetric. Pupils are equal and reactive. Extraocular movements are intact. NECK: Supple. No JVD. No thyromegaly. No submental, submandibular, pre- /postauricular, occipital or supraclavicular lymphadenopathy. CHEST: Normal chest expansion. No Telemetry. LUNGS: Absence of any rales, rhonchi or any wheezing. CARDIOVASCULAR: Regular. S1 and S2 normal. No appreciable rubs, murmurs or gallops. ABDOMEN: Soft, nontender, and nondistended. There is no rebound, voluntary guarding, or rigidity. : Deferred. No Peters. EXTREMITIES: Non-edematous and not cyanotic. No clubbing. Good capillary refill. SKIN: No skin breakdown. Vital Signs (last 8hr) Date Time Temp Pulse Resp B/P (MAP) Pulse Ox O2 Delivery O2 Flow Rate FiO2 03/01/25 12:00 98.6 62 20 130/65 96 Nasal Cannula 2.0 03/01/25 08:00 96 Nasal Cannula* 2 28 03/01/25 07:51 98.8 60 20 132/60 96 Nasal Cannula 2.0 LABS: Laboratory: Test 03/01/25 14:39 03/01/25 11:44 03/01/25 07:15 03/01/25 03:18 Range/Units Activated Partial Thromboplast Time 65.2 H 26.3-35.5 SEC Whole Blood Glucose 127 H 70-110 MG/DL Urine Random Creatinine 104.82 30-135 mg/dL Urine Random Sodium 75 40-220 mmol/l Urine Random Potassium 47 25-125 mmol/L Urine Random Chloride 63 L 110-250 mmol/L White Blood Count 10.3 4.8-10.8 K/uL Red Blood Count 4.66 4.50-6.20 MIL/uL Hemoglobin 13.7 L 14.0-18.0 g/dL Hematocrit 41.5 L 42-54 % Mean Corpuscular Volume 89.1 79-99 fL Mean Corpuscular Hemoglobin 29.4 27.0-33.0 pg Mean Corpuscular Hemoglobin Concent 33.0 32.0-36.0 g/dL Red Cell Distribution Width 14.9 11.0-15.5 % Platelet Count 94 L 130-400 K/uL Mean Platelet Volume 11.5 H 7.5-10.5 fL Immature Granulocyte % (Auto) 0.5 0-1 % Neutrophils (%) (Auto) 75.4 40.0-77.0 % Lymphocytes (%) (Auto) 11.6 L 21.0-51.0 % Monocytes (%) (Auto) 11.7 3.0-13.0 % Eosinophils (%) (Auto) 0.3 0.0-8.0 % Basophils (%) (Auto) 0.5 0.0-5.0 % Neutrophils # (Auto) 7.8 H 1.8-7.7 K/uL Lymphocytes # (Auto) 1.2 1.0-4.8 K/uL Monocytes # (Auto) 1.2 H 0.1-1.0 K/uL Eosinophils # (Auto) 0.03 0.00-0.70 K/uL Basophils # (Auto) 0.05 0.00-0.20 K/uL Absolute Immature Granulocyte (auto 0.05 0-1 K/uL Nucleated Red Blood Cells 0.0 0.0-0.19 % Prothrombin Time 13.0 H 9.6-11.6 SEC Prothromb Time International Ratio 1.25 H 0.85-1.15 Sodium Level 134 L 136-145 mmol/L Potassium Level 4.6 3.5-5.1 mmol/L Chloride Level 102 101-111 mmol/L Carbon Dioxide Level 24 21-32 mmol/L Blood Urea Nitrogen 26 H 7-18 mg/dL Creatinine 1.9 H 0.5-1.3 mg/dL Glomerular Filtration Rate Calc 35 >90 mL/min Random Glucose 103 70-105 mg/dL Lactic Acid Level 2.0 0.8-2.5 mmol/L Total Calcium 8.1 L 8.5-10.1 mg/dL Phosphorus Level 2.6 2.5-4.9 mg/dL Magnesium Level 1.70 L 1.80-2.40 mg/dL Total Bilirubin 1.7 #H 0.2-1.0 mg/dL Direct Bilirubin 0.4 #H 0.0-0.3 mg/dL Aspartate Amino Transf (AST/SGOT) 61 H 10-37 U/L Alanine Aminotransferase (ALT/SGPT) 29 # 12-78 U/L Alkaline Phosphatase 53 50-136 U/L Total Protein 6.1 6.0-8.3 g/dL Albumin 2.7 #L 3.5-5.0 g/dL Test 02/28/25 21:29 02/28/25 18:35 02/28/25 07:30 02/28/25 02:31 Range/Units Urine Color YELLOW YELLOW Urine Appearance CLOUDY H CLEAR Urine pH 5.5 5.0-8.0 Urine Specific [place] 1.020 1.001-1.031 Urine Protein 10 H NEGATIVE mg/dL Urine Glucose (UA) >=1000 H NEGATIVE mg/dL Urine Ketones NEGATIVE NEGATIVE mg/dL Urine Occult Blood SMALL H NEGATIVE Urine Nitrate NEGATIVE NEGATIVE Urine Bilirubin NEGATIVE NEGATIVE mg/dL Urine Urobilinogen 0.2 0.2-1.0 mg/dL Urine Leukocyte Esterase 250 H NEGATIVE [place]/uL Urine RBC 6-10 H 0-1 /HPF Urine WBC 51-100 H 0-1 /HPF Urine WBC Clumps (Auto) FEW 0-1 /HPF Urine Squamous Epithelial Cells RARE 0-2 /HPF Urine Bacteria RARE None Seen /HPF Troponin I High Sensitivity 5776 *H 4-75 ng/L Thyroid Stimulating Hormone (TSH) 0.79 # 0.36-3.74 uIU/mL Hemoglobin A1c 6.5 H 4.0-6.0 % Estimated Average Glucose (eAG) 140 H 70-126 mg/dL Test 02/28/25 02:25 02/28/25 00:43 02/27/25 22:50 Range/Units Procalcitonin 8.81 H 0.05-0.5 ng/mL Total Creatine Kinase 284 #H 21-232 U/L B-Type Natriuretic Peptide 16 0-100 pg/mL Lipase 70 16-77 U/L Current Medications Medications (Trade) Dose Ordered Sig/Stas Route PRN Reason Start Time Stop Time Status Last Admin Dose Admin Aspirin (Aspirin 81mg Ec Tab) 81 mg DAILY PO 02/28/25 09:00 03/30/25 08:59 03/01/25 09:27 81 MG Atorvastatin Calcium (LIPItor 40MG) 40 mg HS PO 02/28/25 21:00 03/30/25 20:59 02/28/25 21:21 40 MG Clopidogrel Bisulfate (plaVIX 75MG) 75 mg DAILY PO 03/01/25 09:00 03/31/25 08:59 03/01/25 09:27 75 MG Famotidine (Pepcid 20mg Tab) 20 mg DAILY PO 02/28/25 09:00 02/28/25 07:20 DC Heparin Sodium (Porcine) (HEParin 5,000 UNIT VIAL) *calculation based on ACTUAL B... AD PRN IV HEPARIN PROTOCOL 02/28/25 02:00 03/30/25 01:59 Heparin Sodium/ Dextrose 250 ml @ 0 mls/hr Q6H IV 02/28/25 02:00 03/30/25 01:59 02/28/25 15:33 12.65 MLS/HR Hydralazine HCl (APRESOLine 20MG INJ) 10 mg Q6H PRN IV For:SBP above 160;DBP above 90 02/28/25 02:30 03/30/25 02:29 Insulin Human Regular (humuLIN R 100 UNIT/ML 3ML) INSULIN SLIDING SCAL... ACHS SQ 02/28/25 07:30 03/30/25 07:29 Lactated Ringer's 1,000 ml @ 75 mls/hr [id number] IV 02/28/25 02:30 03/01/25 07:19 DC 03/01/25 04:11 75 MLS/HR Lactulose (Constulose 20gm/ 30ml Udcup) 20 gm BID PRN PO CONSTIPATION 02/28/25 02:30 03/30/25 02:29 Lisinopril (Prinivil 2.5mg) 2.5 mg DAILY PO 03/01/25 09:00 03/31/25 08:59 03/01/25 09:27 2.5 MG Magnesium Sulfate 50 ml @ 0 mls/hr PROTOCOL PRN IV h 02/28/25 02:30 03/30/25 02:29 03/01/25 04:08 0 MLS/HR Metoprolol Succinate (TopROL XL) 100 mg DAILY PO 03/01/25 09:00 03/31/25 08:59 03/01/25 09:27 100 MG Metoprolol Tartrate (loprESSOR) 25 mg BID PO 02/28/25 21:00 03/01/25 07:00 DC 02/28/25 21:21 25 MG Morphine Sulfate (morPHINE 2MG SYG) 2 mg Q4H PRN IVP SEVERE PAIN (7-10) 02/28/25 02:30 03/07/25 02:29 Nitroglycerin (Nitroglycerin 1gm Oint) 0.5 inch Q8H TD 02/28/25 02:30 03/30/25 02:29 03/01/25 11:53 0.5 INCH Nitroglycerin (Nitrostat) 0.4 mg AD PRN SL CHEST PAIN 02/28/25 01:30 02/28/25 02:21 DC Ondansetron HCl (zoFRAN 4MG INJ) 4 mg Q6H PRN IV NAUSEA/VOMITING 02/28/25 02:30 03/30/25 02:29 02/28/25 18:12 4 MG Pantoprazole Sodium (PROTonix 40MG INJ) 40 mg DAILY IVP 02/28/25 07:30 03/30/25 07:29 03/01/25 09:27 40 MG Piperacillin Sod/ Tazobactam Sod (Zosyn 3.375gm+NS 50ml) 3.375 gm Q8H IV 02/28/25 04:00 03/10/25 03:59 03/01/25 11:54 3.375 GM Potassium Chloride 100 ml @ 100 mls/hr AD PRN IV POTASSIUM PROTOCOL 02/28/25 02:30 03/30/25 02:29 Potassium Chloride (K-Dur/Klor-Con 20meq) 20 meq AD PRN PO POTASSIUM PROTOCOL 02/28/25 02:30 03/30/25 02:29 Potassium Chloride (KCl 10% Elixir 20meq/15ml) 20 meq AD PRN PO POTASSIUM PROTOCOL 02/28/25 02:30 03/30/25 02:29 Sodium Chloride 1,000 ml @ 75 mls/hr [id number] IV 03/01/25 07:30 03/01/25 20:00 03/01/25 09:26 75 MLS/HR DIAGNOSTICS / RADIOLOGY: [place] [address] IMAGING REPORT Signed PATIENT: MJ HALL MR#: [id number] : 1945 SEX: M AGE: 79 LOCATION: [facility] ORDER STATUS: ADM IN REPORT#: [id number] SERVICE [id number] REASON: Ataxia ORDERING PHYSICIAN: BONITA MEDEL MD PROCEDURE: HEAD WO - CT HEAD/BRAIN W/O CONTRAST EXAM: CT Head Without Intravenous Contrast. CLINICAL HISTORY: 79-year-old male ataxia. TECHNIQUE: Axial computed tomography images of the head/brain without intravenous contrast. Dose reduction technique was used including one or more of the following: automated exposure control, adjustment of mA and kV according to patient size, and/or iterative reconstruction. CONTRAST: None. COMPARISON: None. FINDINGS: BRAIN: No acute intraparenchymal hemorrhage. No mass lesion. No CT evidence for acute territorial infarct. No midline shift or extra-axial collection. Moderate atrophy. Moderate chronic ischemic changes. VENTRICLES: No hydrocephalus. ORBITS: The orbits are unremarkable. SINUSES AND MASTOIDS: The paranasal sinuses and mastoid air cells are clear. SOFT TISSUES: No significant facial or scalp soft tissue swelling evident. No radiopaque foreign body is seen. BONES: No acute skull fracture. IMPRESSION: 1. No acute intracranial abnormality. 2. Moderate atrophy and moderate chronic ischemic changes. /[place] DICTATED BY: JACK MTZ MD DATE: 02/28/251823 ELECTRONICALLY SIGNED BY: JACK MTZ MD DATE: 02/28/251823 ASSESSMENT: NSTEMI, POA Rule out stroke, POA Elevated liver function tests Sepsis due to Urinary tract infection,POA Hyperlactatemia, POA Thrombocytopenia mild, POA Acute on chronic renal failure,POA CKD stage IIIA Diabetes mellitius type2 Hypomagnesemia,POA Hypophosphatemia, POA Hypertension Hyperlipidemia Peripheral artery disease PLAN: NSTEMI, POA He has no symptoms today. Echocardiogram showed that left ventricular ejection fraction is 30-35%, dyskinetic septum and akinetic apex, the right ventricle is mildly dilated and suspected apical thrombus. Cardiology saw the patient and they switched metoprolol tartrate to metoprolol succinate, they administered heparin for another 24 hours and watch his platelet levels. They are also considering to change heparin to eliquis in 24 hours. Today morning the nurse administered him heparin, after administering heparin his PTT is elevated at 93.9. So she held heparin for an hour and then she restarted it at a decreased dose. They are considering to change heparin to eliquis in 24 hours. His troponin levels are 23>3055>8012>7228>5776. Will repeat his troponin level tomorrow. Rule out stroke, POA He had shaking of limbs at the time of onset of chest pain but now he has no symptoms. CT head is unremarkable. We ruled out seizures. Sepsis due to Urinary tract infection,POA Urinalysis showed evidence of UTI Continue Zosyn (day 2) Urine culture showed >100,000 CFU Elevated liver function tests Today his blood work show that bilirubin is increased from 1.1 to 1.7, AST is is increased from 43 to 61 Discontinued lactate ringer and started him on normal saline. Hyperlactatemia, POA Today his lactate levels are 3.1>3.3>3.0>3.5>2. We will repeat his labs tomorrow Thrombocytopenia mild, POA Blood work showed platelet count is 94. Will repeat his labs tomorrow Acute on chronic renal failure,POA CKD stage IIIA His blood work showed that the BUN is 26 and creatinine is 1.9. We ordered urine electrolytes and creatinine and they were normal except for urine chloride - 63. His FeNa is 1%. We also urine urea to calculate Fe urea. Will repeat his labs tomorrow. Diabetes mellitius type2 His hemoglobin A1c is 6.5. Today his blood glucose level is 127. He is on sliding scale insulin. Hypomagnesemia,POA Today his magnesium is 1.7. We replaced the magnesium Will repeat his labs tomorrow Hypophosphatemia, POA Today his phosphorus is 2.6. Hypertension Today's blood pressure is 130/65. Continue lisinopril 2.5 mg, metoprolol mg Hyperlipidemia Continue atorvastatin 40 mg. Peripheral artery disease Continue aspirin and clopidogrel. DVT prophylaxis with SCD, heparin. GI prophylaxis with pantoprazole. He is on a heart healthy diet. ATTESTATION BY PHYSICIAN I have seen and examined the patient. I reviewed the documentation, medical decision making, and treatment plan as noted by the resident provider above. I agree with the findings and plan of care. Sandeep Morataya MD, AKSHAY MD Mar 01, 2025 15:47
[2025-03-01 16:00] VITALS: BP 108/56; PULSE 71; RESP 20; TEMP 97.6
--- NOTE | 2025-03-01 18:48 | NUR ---
Patient encouraged and offered assistance to shower or cleanse with CHG wipes. Patient refused x2.
[2025-03-01 20:00] VITALS: BP 115/54; PULSE 71; RESP 18; TEMP 98; O2SAT 95
[2025-03-02] VITALS (9 sets, daily range): BP systolic 108–138; BP diastolic 55–70; PULSE 63–74; RESP 18–20; TEMP 97.8–98.8; O2SAT 96
[2025-03-02 04:37] LABS: NUCLEATED RED BLOOD CELLS 0.0 % (0.0-0.19); PLATELET COUNT (AUTO) 84.0 K/uL (130-400); RED BLOOD CELL COUNT(AUTO) 4.38 MIL/uL (4.50-6.20); RED CELL DISTRIBUTION WIDTH 14.8 % (11.0-15.5); WHITE BLOOD COUNT (AUTO) 7.7 K/uL (4.8-10.8)
[2025-03-02 04:59] LABS: ASPARTATE AMINOTRANSFERASE 41.0 U/L (10-37); CREATININE 1.9 mg/dL (0.5-1.3); GLOMERULAR FILTR. RATE CALC 35.0 mL/min (>90); GLUCOSE,RANDOM 128.0 mg/dL (70-105); PHOSPHORUS 3.0 mg/dL (2.5-4.9); SODIUM SERUM 135.0 mmol/L (136-145); TOTAL PROTEIN, SERUM 5.9 g/dL (6.0-8.3); UREA NITROGEN, BLOOD 28.0 mg/dL (7-18)
--- NOTE | 2025-03-02 06:41 | PN ---
[facility] Cardiology Progress Note CARDIOLOGY PROGRESS NOTE 2024 Problems: 1. Acute myocardial infarction with new left bundle branch block and Sgarbossa criteria for acute myocardial infarction 2. Remote history of myocardial infarction status post stenting procedures and subsequent aortocoronary bypass graft surgery with a IRIZARRY graft to the LAD sequential vein graft to the obtuse marginal artery and PDA and vein graft to the diagonal artery 2021 with documented atretic IRIZARRY graft October 2024 with LV ejection fraction of 30-35% and apical thrombus on echo this admission 3. Peripheral arterial disease status post right and left femoral artery bypasses and subsequent left iliofemoral cadaver bypass 4. Hypertension 5. Diabetes mellitus type 2 6. Dyslipidemia 7. Thrombocytopenia 8. Acute on Chronic kidney disease stage IIIb Blood pressure is running 110 systolic heart rate in the 70s the patient is afebrile. White count 7.7 Hemoglobin 13.0 platelet count 82402 down from [id number] on admission. Potassium 4.0 BUN creatinine 1.9 estimated GFR of 35. Creatinine up from 1.5 on admission. The patient continues on aspirin atorvastatin clopidogrel heparin protocol insulin scale lisinopril metoprolol succinate pantoprazole Zosyn antibiotic and potassium protocol. This patient had presented with visual disturbance weakness chest pain and feeling that his throat was closing up. Initial troponin was normal. Electrocardiogram however showed a new left bundle branch block with Sgarbossa criteria for acute NE. troponins deb to 8000. I was notified about the patient following day at that point it was felt that the infarct was probably completed. A 2D echo would also suggest that this is a completed event. Morning he is pain-free denies any shortness of breath. No new murmurs are present. I am concerned about his rising creatinine and following platelet count. We will discontinue heparin protocol start him on Eliquis 2.5 mg b.i.d. for apical thrombus. Continue with aspirin and clopidogrel. At the time of discharge we will consider whether or not to stop aspirin. Platelet count will be repeated tomorrow. If there was not a strong indication for IV antibiotics I would consider stopping and placing on an oral antibiotic to see if his creatinine will improve. Urinalysis did show negative nitrate positive leukocyte esterase and both red and white cells. Blood cultures are negative. If the patient remained stable we will consider a Lexiscan Cardiolite stress test Wednesday prior to discharge. BONITA MEDEL MD Mar 02, 2025 06:41
--- NOTE | 2025-03-02 13:52 | PN ---
[facility] PROGRESS NOTE Date of Service: Mar 02, 2025 Time of Service: 13:28 SUBJECTIVE: He is a 79-year-old male past medical history of Diabetes mellitius type2, hyperlipidemia, hypertension, peripheral artery disease, bladder CA came to ER with chief complaint of chest pain since yesterday. Location is midsternal. Duration is on and off. Character is described as pressure. There was no alleviating factors. There was no aggravating factors. Patient reports associated nausea and vomiting x1 episode as well as shaking. Surgical history includes Left femoral popliteal bypass, CABG x4, cataract surgery. He drinks one beer that is 12 oz about once a week In the emergency department platelets 124, creatinine 1.5, BUN 21, initial troponin unremarkable, BNP unremarkable, no urinalysis has been collected or sent to lab. Chest x-ray is unremarkable. Repeat troponin is 3055. Emergency room physician contacted coding analyst on- call, Dr. Gonzalez who requested patient be admitted under hospitalist service. Patient is kept NPO. No need for Plavix for ticagrelor. Patient started on a heparin drip. 02/28/2025: Patient is seen and evaluated in the ER. He has mild chest pain and has no other symptoms. His examination is normal and his vitals are in the normal range. His labs are in the normal range except WBC 4, platelets 124,bilirubin is 1.1, AST is 43, HbA1c 6.5, procalcitonin is 8.81, BUN is 21, creatinine is 1.5, phosphorus is 1.4, magnesium is 1.6, creatine kinase is 28. His lactic acid level is 3.3>3>3.1. When he was receiving heparin his APTT is increased to 111.3. So the nurse stopped heparin for an hour and then she resumed heparin. His recent APTT is 67.8. His EKG showed ST segment elevation in V1 to V4. Cardiology saw the patient and they are ordered 2D echo. Also on echocardiogram if there is severe hypokinesis or akinesis of the anterior wall then they recommended medical management and Lexiscan Cardiolite stress test prior to hospital discharge for risk stratification and on the other hand if there was significant wall motion preservation of the anterior wall then they will consider left heart catheterization and stenting of the protected left main into the LAD. Echocardiogram showed that left ventricular ejection fraction is 30-35%, dyskinetic septum and akinetic apex, the right ventricle is mildly dilated and suspected apical thrombus. As he had some neurological symptoms his CT head was also done and we are waiting for the report. As is magnesium and phosphorus are low we replaced them. He is started on heart healthy diet. 03/01/2025: Patient is seen and evaluated in the room 225. He has no symptoms today. His examination is normal and his vitals are in the normal range. His saturation is 96% on 2L of O2. His labs are in the normal range except for Hb is 13.7, HCT is 11.5, MPV is 11.5, APTT is 65.2, BUN is 26, Creatinine is 1.9, ma gnesium is 1.7, bilirubin is 1.7, AST 61. Blood culture showed no growth after [address] is unremarkable. Echocardiogram show that LVEF is 30 to 35%, suspected apical thrombus, dyskinetic septum, akinetic apex. Cardiology saw the patient and they switched metoprolol tartrate to metoprolol succinate, they administered heparin for another 24 hours and watch his platelet levels. They are also considering to change heparin to eliquis in 24 hours. Today morning the nurse administered him heparin, after administering heparin his PTT is elevated at 93.9. So she held heparin for an hour and then she restarted it at a decreased dose. He doesn't want PT. Urine electrolytes are in the normal range except for urine chloride which is 63. FeNa is 1%. We also ordered urine urea. Due to elevation in the liver enzymes we discontinued lactate ringer and started him on Normal saline. His urine culture showed >100,000 CFU. Identification and susceptibility are in process. 03/02/2025: Patient is seen and evaluated in the room 225. He has no symptoms today. His examination is normal and his vitals are in the normal range. His oxygen saturation is 95% on 2L of O2. His labs are in the normal range except for Hb is 13, Plt is 84, HCT is 38.3, Sodium is 135, BUN is 28, Cr is 1.9, Glucose is 208, bilirubin is 1.4, troponin is 883, BNP is 481. His liver enzyme are improving after stopping lactate ringer. His troponin levels are going down. Cardiology saw him and they are concerned about raising creatinine levels and they think it could be due to Zosyn. So we discontinued Zosyn and we started him on ceftriaxone. Cardiology also discontinued heparin and they started him on Eliquis 2.5mg. They are planning to do a Lexiscan stress test on Wednesday and at they time of discharge they will consider continuing aspirin or not. We ordered MRI of brain because he presented with shaking of legs and to rule out any neurological abnormalities. Urine culture showed gram negative rods and identification and susceptibility are in process. REVIEW OF SYSTEMS CONSTITUTIONAL: Denies fevers, chills, or night sweats. No unintentional weight loss reported. NEUROLOGICAL: Denies headache, amaurosis fugax, motor weakness, sensory defici t, vertigo/spinning sensation, gait abnormalities, or tremors. ENT: No hearing loss, otalgia, otorrhea, rhinitis, rhinorrhea, hoarseness, or sore throat. CARDIOVASCULAR: Denies any chest pain, exertional angina, dyspnea on exertion, orthopnea, paroxysmal nocturnal dyspnea, palpitations, life- threatening arrhythmias, claudication. PULMONARY: Denies any shortness of breath, cough, phlegm/sputum, hemoptysis, pleuritic chest pain. SLEEP: Denies morning headaches, daytime somnolence or napping. Denies difficulty falling asleep, staying asleep, waking from sleep. Denies knowledge of snoring. GASTROINTESTINAL: Denies any type of dysphagia to either liquids or solids. Denies nausea, vomiting, pyrosis, early satiety, abdominal pain, diarrhea, constipation, or changes in stool consistency or caliber. Denies coffee-ground emesis, hematemesis, hematochezia, or melanotic stools. GENITOURINARY: Denies frequency, urgency, nocturia, hematuria or incontinence (Storage/Irritative symptoms.) Low urinary stream, straining to void, urinary intermittency or hesitancy, splitting of the voiding stream, terminal dribbling. ENDOCRINOLOGIC: Denies polyuria, polydipsia, polyphagia or heat/cold intolerances. HEMATOLOGIC: Denies thrombophilia/previous clots, or coagulopathy/bleeding disorders. ONCOLOGIC: Denies personal history of malignancy. DERMATOLOGIC: Denies rashes or pruritus. PSYCHIATRIC: Denies any suicidal or homicidal ideation. Denies hallucinations. PHYSICAL EXAM GENERAL APPEARANCE: The patient is awake, alert, and oriented, in no acute cardiopulmonary distress. NEUROLOGICAL: Cranial nerves II-XII grossly intact. Motor is 5/5 in bilateral upper and lower extremities proximal to distal. No sensory deficits. HEENT: Face is symmetric. Pupils are equal and reactive. Extraocular movements are intact. NECK: Supple. No JVD. No thyromegaly. No submental, submandibular, pre- /postauricular, occipital or supraclavicular lymphadenopathy. CHEST: Normal chest expansion. No Telemetry. LUNGS: Absence of any rales, rhonchi or any wheezing. CARDIOVASCULAR: Regular. S1 and S2 normal. No appreciable rubs, murmurs or gallops. ABDOMEN: Soft, nontender, and nondistended. There is no rebound, voluntary guarding, or rigidity. : Deferred. No Peters. EXTREMITIES: Non-edematous and not cyanotic. No clubbing. Good capillary refill. SKIN: No skin breakdown. Vital Signs (last 8hr) Date Time Temp Pulse Resp B/P (MAP) Pulse Ox O2 Delivery O2 Flow Rate FiO2 03/02/25 12:00 97.9 65 20 134/60 96 Nasal Cannula 2.0 03/02/25 07:52 98.8 69 20 117/57 96 Nasal Cannula LABS: Laboratory: Test 03/02/25 11:07 03/02/25 04:33 03/01/25 20:20 03/01/25 07:15 Range/Units Whole Blood Glucose 208 #H 70-110 MG/DL White Blood Count 7.7 4.8-10.8 K/uL Red Blood Count 4.38 L 4.50-6.20 MIL/uL Hemoglobin 13.0 L 14.0-18.0 g/dL Hematocrit 38.3 L 42-54 % Mean Corpuscular Volume 87.4 79-99 fL Mean Corpuscular Hemoglobin 29.7 27.0-33.0 pg Mean Corpuscular Hemoglobin Concent 33.9 32.0-36.0 g/dL Red Cell Distribution Width 14.8 11.0-15.5 % Platelet Count 84 L 130-400 K/uL Mean Platelet Volume 10.6 H 7.5-10.5 fL Nucleated Red Blood Cells 0.0 0.0-0.19 % Sodium Level 135 L 136-145 mmol/L Potassium Level 4.0 3.5-5.1 mmol/L Chloride Level 103 101-111 mmol/L Carbon Dioxide Level 25 21-32 mmol/L Blood Urea Nitrogen 28 H 7-18 mg/dL Creatinine 1.9 H 0.5-1.3 mg/dL Glomerular Filtration Rate Calc 35 >90 mL/min Random Glucose 128 H 70-105 mg/dL Lactic Acid Level 1.3 0.8-2.5 mmol/L Total Calcium 8.0 L 8.5-10.1 mg/dL Phosphorus Level 3.0 2.5-4.9 mg/dL Magnesium Level 2.20 1.80-2.40 mg/dL Total Bilirubin 1.4 H 0.2-1.0 mg/dL Direct Bilirubin 0.6 H 0.0-0.3 mg/dL Aspartate Amino Transf (AST/SGOT) 41 H 10-37 U/L Alanine Aminotransferase (ALT/SGPT) 34 12-78 U/L Alkaline Phosphatase 55 50-136 U/L Troponin I High Sensitivity 883 *H 4-75 ng/L B-Type Natriuretic Peptide 481 H 0-100 pg/mL Total Protein 5.9 L 6.0-8.3 g/dL Albumin 2.5 L 3.5-5.0 g/dL Activated Partial Thromboplast Time 51.0 H 26.3-35.5 SEC Urine Random Creatinine 104.82 30-135 mg/dL Urine Random Sodium 75 40-220 mmol/l Urine Random Potassium 47 25-125 mmol/L Urine Random Chloride 63 L 110-250 mmol/L Test 03/01/25 03:18 02/28/25 21:29 Range/Units Immature Granulocyte % (Auto) 0.5 0-1 % Neutrophils (%) (Auto) 75.4 40.0-77.0 % Lymphocytes (%) (Auto) 11.6 L 21.0-51.0 % Monocytes (%) (Auto) 11.7 3.0-13.0 % Eosinophils (%) (Auto) 0.3 0.0-8.0 % Basophils (%) (Auto) 0.5 0.0-5.0 % Neutrophils # (Auto) 7.8 H 1.8-7.7 K/uL Lymphocytes # (Auto) 1.2 1.0-4.8 K/uL Monocytes # (Auto) 1.2 H 0.1-1.0 K/uL Eosinophils # (Auto) 0.03 0.00-0.70 K/uL Basophils # (Auto) 0.05 0.00-0.20 K/uL Absolute Immature Granulocyte (auto 0.05 0-1 K/uL Prothrombin Time 13.0 H 9.6-11.6 SEC Prothromb Time International Ratio 1.25 H 0.85-1.15 Urine Color YELLOW YELLOW Urine Appearance CLOUDY H CLEAR Urine pH 5.5 5.0-8.0 Urine Specific [place] 1.020 1.001-1.031 Urine Protein 10 H NEGATIVE mg/dL Urine Glucose (UA) >=1000 H NEGATIVE mg/dL Urine Ketones NEGATIVE NEGATIVE mg/dL Urine Occult Blood SMALL H NEGATIVE Urine Nitrate NEGATIVE NEGATIVE Urine Bilirubin NEGATIVE NEGATIVE mg/dL Urine Urobilinogen 0.2 0.2-1.0 mg/dL Urine Leukocyte Esterase 250 H NEGATIVE [place]/uL Urine RBC 6-10 H 0-1 /HPF Urine WBC 51-100 H 0-1 /HPF Urine WBC Clumps (Auto) FEW 0-1 /HPF Urine Squamous Epithelial Cells RARE 0-2 /HPF Urine Bacteria RARE None Seen /HPF Current Medications Medications (Trade) Dose Ordered Sig/Stas Route PRN Reason Start Time Stop Time Status Last Admin Dose Admin Apixaban (EliquIS 2.5 mg) 2.5 mg BID PO 03/02/25 09:00 04/01/25 08:59 03/02/25 09:18 2.5 MG Aspirin (Aspirin 81mg Ec Tab) 81 mg DAILY PO 02/28/25 09:00 03/30/25 08:59 03/02/25 09:18 81 MG Atorvastatin Calcium (LIPItor 40MG) 40 mg HS PO 02/28/25 21:00 03/30/25 20:59 03/01/25 20:35 40 MG Ceftriaxone Sodium (ROCEphine 1G INJ) 1 gm Q24H IVPB 03/02/25 09:30 03/12/25 09:29 03/02/25 09:24 1 GM Clopidogrel Bisulfate (plaVIX 75MG) 75 mg DAILY PO 03/01/25 09:00 03/31/25 08:59 03/02/25 09:18 75 MG Famotidine (Pepcid 20mg Tab) 20 mg DAILY PO 02/28/25 09:00 02/28/25 07:20 DC Heparin Sodium (Porcine) (HEParin 5,000 UNIT VIAL) *calculation based on ACTUAL B... AD PRN IV HEPARIN PROTOCOL 02/28/25 02:00 03/02/25 06:44 DC Heparin Sodium/ Dextrose 250 ml @ 0 mls/hr Q6H IV 02/28/25 02:00 03/02/25 06:44 DC 03/01/25 20:31 9.3 MLS/HR Hydralazine HCl (APRESOLine 20MG INJ) 10 mg Q6H PRN IV For:SBP above 160;DBP above 90 02/28/25 02:30 03/30/25 02:29 Insulin Human Regular (humuLIN R 100 UNIT/ML 3ML) INSULIN SLIDING SCAL... ACHS SQ 02/28/25 07:30 03/30/25 07:29 03/02/25 12:05 3 UNIT Lactated Ringer's 1,000 ml @ 75 mls/hr [id number] IV 02/28/25 02:30 03/01/25 07:19 DC 03/01/25 04:11 75 MLS/HR Lactulose (Constulose 20gm/ 30ml Udcup) 20 gm BID PRN PO CONSTIPATION 02/28/25 02:30 03/30/25 02:29 Lisinopril (Prinivil 2.5mg) 2.5 mg DAILY PO 03/01/25 09:00 03/31/25 08:59 03/02/25 09:18 2.5 MG Magnesium Sulfate 50 ml @ 0 mls/hr PROTOCOL PRN IV h 02/28/25 02:30 03/30/25 02:29 03/01/25 04:08 0 MLS/HR Metoprolol Succinate (TopROL XL) 100 mg DAILY PO 03/01/25 09:00 03/31/25 08:59 03/02/25 09:18 100 MG Metoprolol Tartrate (loprESSOR) 25 mg BID PO 02/28/25 21:00 03/01/25 07:00 DC 02/28/25 21:21 25 MG Morphine Sulfate (morPHINE 2MG SYG) 2 mg Q4H PRN IVP SEVERE PAIN (7-10) 02/28/25 02:30 03/07/25 02:29 Nitroglycerin (Nitroglycerin 1gm Oint) 0.5 inch Q8H TD 02/28/25 02:30 03/30/25 02:29 03/02/25 09:24 0.5 INCH Nitroglycerin (Nitrostat) 0.4 mg AD PRN SL CHEST PAIN 02/28/25 01:30 02/28/25 02:21 DC Ondansetron HCl (zoFRAN 4MG INJ) 4 mg Q6H PRN IV NAUSEA/VOMITING 02/28/25 02:30 03/30/25 02:29 02/28/25 18:12 4 MG Pantoprazole Sodium (PROTonix 40MG INJ) 40 mg DAILY IVP 02/28/25 07:30 03/30/25 07:29 03/02/25 09:18 40 MG Piperacillin Sod/ Tazobactam Sod (Zosyn 3.375gm+NS 50ml) 3.375 gm Q8H IV 02/28/25 04:00 03/02/25 09:12 DC 03/02/25 03:00 3.375 GM Potassium Chloride 100 ml @ 100 mls/hr AD PRN IV POTASSIUM PROTOCOL 02/28/25 02:30 03/30/25 02:29 Potassium Chloride (K-Dur/Klor-Con 20meq) 20 meq AD PRN PO POTASSIUM PROTOCOL 02/28/25 02:30 03/30/25 02:29 Potassium Chloride (KCl 10% Elixir 20meq/15ml) 20 meq AD PRN PO POTASSIUM PROTOCOL 02/28/25 02:30 03/30/25 02:29 Sodium Chloride 1,000 ml @ 75 mls/hr [id number] IV 03/01/25 07:30 03/01/25 20:00 DC 03/01/25 09:26 75 MLS/HR DIAGNOSTICS / RADIOLOGY: [ ] ASSESSMENT: NSTEMI, POA Rule out stroke, POA Sepsis due to Urinary tract infection Elevated liver function tests Hyperlactatemia, POA Thrombocytopenia mild, POA Acute on chronic renal failure CKD stage IIIA Diabetes mellitius type2 Hypomagnesemia,POA Hypophosphatemia, POA Hypertension Hyperlipidemia Peripheral artery disease PLAN: NSTEMI, POA He has no symptoms today. Echocardiogram showed that left ventricular ejection fraction is 30-35%, dyskinetic septum and akinetic apex, the right ventricle is mildly dilated and suspected apical thrombus. Cardiology saw the patient they stopped heparin and changed to eliquis 2.5mg. If the patient is stable they are planning to lexiscan stress test on Wednesday. Also they will decide to continue aspirin or not at the time of discharge. His troponin levels are 23>3055>8012>7228>5776>883. Will repeat his troponin level tomorrow. Rule out stroke, POA He had shaking of limbs at the time of onset of chest pain but now he has no s ymptoms. CT head is unremarkable. We ruled out seizures. We ordered MRI of brain to rule out any neurological changes. Sepsis due to Urinary tract infection Urinalysis showed evidence of UTI He is Zosyn but due to increased creatinine we changed it to ceftriaxone. Continue ceftriaxone (day 1). Urine culture showed gram negative rods. Elevated liver function tests Discontinued lactate ringer and started him on normal saline. Today his blood work show that bilirubin is decreased from 1.7 to 1.4, AST is decreased from 64 to 41. Hyperlactatemia, POA His lactate levels are 3.1>3.3>3.0>3.5>2>1.3. We will repeat his labs tomorrow Thrombocytopenia mild, POA Blood work showed platelet count is 84. Will repeat his labs tomorrow Acute on chronic renal failure,POA CKD stage IIIA His blood work showed that the BUN is 28 and creatinine is 1.9. We ordered urine electrolytes and creatinine and they were normal except for urine chloride - 63. His FeNa is 1%. We also urine urea to calculate Fe urea. His creatinine is increasing cardiology thinks it could be due to Zosyn. So we discontinued Zosyn. Will repeat his labs tomorrow. Diabetes mellitius type2 His hemoglobin A1c is 6.5. Today his blood glucose level is 208. He is on sliding scale insulin. Hypomagnesemia,POA Today his magnesium is 1.7. We replaced the magnesium Will repeat his labs tomorrow Hypophosphatemia, POA Today his phosphorus is 3. Hypertension Today's blood pressure is 134/60. Continue lisinopril 2.5 mg, metoprolol [id number] mg Hyperlipidemia Continue atorvastatin 40 mg. Peripheral artery disease Continue aspirin and clopidogrel. DVT prophylaxis with SCD, heparin. GI prophylaxis with pantoprazole. He is on a heart healthy diet. ATTESTATION BY PHYSICIAN I have seen and examined the patient. I reviewed the documentation, medical decision making, and treatment plan as noted by the resident provider above. I agree with the findings and plan of care. Sandeep Morataya MD, AKSHAY MD Mar 02, 2025 13:52
[2025-03-03] VITALS (7 sets, daily range): BP systolic 124–137; BP diastolic 53–66; PULSE 56–60; RESP 16–20; TEMP 97.8–98.5; O2SAT 95
[2025-03-03 04:17] LABS: NUCLEATED RED BLOOD CELLS 0.0 % (0.0-0.19); PLATELET COUNT (AUTO) 93.0 K/uL (130-400); RED BLOOD CELL COUNT(AUTO) 4.61 MIL/uL (4.50-6.20); RED CELL DISTRIBUTION WIDTH 14.6 % (11.0-15.5); WHITE BLOOD COUNT (AUTO) 6.6 K/uL (4.8-10.8)
[2025-03-03 04:44] LABS: ASPARTATE AMINOTRANSFERASE 34.0 U/L (10-37); CREATININE 1.4 mg/dL (0.5-1.3); GLOMERULAR FILTR. RATE CALC 50.0 mL/min (>90); GLUCOSE,RANDOM 144.0 mg/dL (70-105); SODIUM SERUM 136.0 mmol/L (136-145); TOTAL PROTEIN, SERUM 6.5 g/dL (6.0-8.3); UREA NITROGEN, BLOOD 22.0 mg/dL (7-18)
--- NOTE | 2025-03-03 09:02 | PN ---
[facility] PROGRESS NOTE Date of Service: Mar 03, 2025 Time of Service: 09:01 SUBJECTIVE: He is a 79-year-old male past medical history of Diabetes mellitius type2, hyperlipidemia, hypertension, peripheral artery disease, bladder CA came to ER with chief complaint of chest pain since yesterday. Location is midsternal. Duration is on and off. Character is described as pressure. There was no alleviating factors. There was no aggravating factors. Patient reports associated nausea and vomiting x1 episode as well as shaking. Surgical history includes Left femoral popliteal bypass, CABG x4, cataract surgery. He drinks one beer that is 12 oz about once a week In the emergency department platelets 124, creatinine 1.5, BUN 21, initial troponin unremarkable, BNP unremarkable, no urinalysis has been collected or sent to lab. Chest x-ray is unremarkable. Repeat troponin is 3055. Emergency room physician contacted durability engineer on- call, Dr. Gonzalez who requested patient be admitted under hospitalist service. Patient is kept NPO. No need for Plavix for ticagrelor. Patient started on a heparin drip. 02/28/2025: Patient is seen and evaluated in the ER. He has mild chest pain and has no other symptoms. His examination is normal and his vitals are in the normal range. His labs are in the normal range except WBC 4, platelets 124,bilirubin is 1.1, AST is 43, HbA1c 6.5, procalcitonin is 8.81, BUN is 21, creatinine is 1.5, phosphorus is 1.4, magnesium is 1.6, creatine kinase is 28. His lactic acid level is 3.3>3>3.1. When he was receiving heparin his APTT is increased to 111.3. So the nurse stopped heparin for an hour and then she resumed heparin. His recent APTT is 67.8. His EKG showed ST segment elevation in V1 to V4. Cardiology saw the patient and they are ordered 2D echo. Also on echocardiogram if there is severe hypokinesis or akinesis of the anterior wall then they recommended medical management and Lexiscan Cardiolite stress test prior to hospital discharge for risk stratification and on the other hand if there was significant wall motion preservation of the anterior wall then they will consider left heart catheterization and stenting of the protected left main into the LAD. Echocardiogram showed that left ventricular ejection fraction is 30-35%, dyskinetic septum and akinetic apex, the right ventricle is mildly dilated and suspected apical thrombus. As he had some neurological symptoms his CT head was also done and we are waiting for the report. As is magnesium and phosphorus are low we replaced them. He is started on heart healthy diet. 03/01/2025: Patient is seen and evaluated in the room 225. He has no symptoms today. His examination is normal and his vitals are in the normal range. His saturation is 96% on 2L of O2. His labs are in the normal range except for Hb is 13.7, HCT is 11.5, MPV is 11.5, APTT is 65.2, BUN is 26, Creatinine is 1.9, ma gnesium is 1.7, bilirubin is 1.7, AST 61. Blood culture showed no growth after [address] is unremarkable. Echocardiogram show that LVEF is 30 to 35%, suspected apical thrombus, dyskinetic septum, akinetic apex. Cardiology saw the patient and they switched metoprolol tartrate to metoprolol succinate, they administered heparin for another 24 hours and watch his platelet levels. They are also considering to change heparin to eliquis in 24 hours. Today morning the nurse administered him heparin, after administering heparin his PTT is elevated at 93.9. So she held heparin for an hour and then she restarted it at a decreased dose. He doesn't want PT. Urine electrolytes are in the normal range except for urine chloride which is 63. FeNa is 1%. We also ordered urine urea. Due to elevation in the liver enzymes we discontinued lactate ringer and started him on Normal saline. His urine culture showed >100,000 CFU. Identification and susceptibility are in process. 03/02/2025: Patient is seen and evaluated in the room 225. He has no symptoms today. His examination is normal and his vitals are in the normal range. His oxygen saturation is 95% on 2L of O2. His labs are in the normal range except for Hb is 13, Plt is 84, HCT is 38.3, Sodium is 135, BUN is 28, Cr is 1.9, Glucose is 208, bilirubin is 1.4, troponin is 883, BNP is 481. His liver enzyme are improving after stopping lactate ringer. His troponin levels are going down. Cardiology saw him and they are concerned about raising creatinine levels and they think it could be due to Zosyn. So we discontinued Zosyn and we started him on ceftriaxone. Cardiology also discontinued heparin and they started him on Eliquis 2.5mg. They are planning to do a Lexiscan stress test on Wednesday and at they time of discharge they will consider continuing aspirin or not. We ordered MRI of brain because he presented with shaking of legs and to rule out any neurological abnormalities. Urine culture showed gram negative rods and identification and susceptibility are in process. 03/03/2025: Patient was seen and evaluated in room 225. He reports right calf pain but has no edema, tenderness on palpation, or shakiness in the legs today. He has a history of peripheral artery disease, which may explain his symptoms. Troponin has decreased from 883 yesterday to 323 today. He is scheduled for a Lexiscan stress test on Wednesday. Platelet count has improved from 84 to 93. Kidney function is improving, with creatinine 1.4 and BUN 22. MRI brain has been completed; report is pending. Cardiology recommendations will be followed. REVIEW OF SYSTEMS CONSTITUTIONAL: Denies fevers, chills, or night sweats. No unintentional weight loss reported. NEUROLOGICAL: Denies headache, amaurosis fugax, motor weakness, sensory deficit, vertigo/spinning sensation, gait abnormalities, or tremors. ENT: No hearing loss, otalgia, otorrhea, rhinitis, rhinorrhea, hoarseness, or sore throat. CARDIOVASCULAR: Denies any chest pain, exertional angina, dyspnea on exertion, orthopnea, paroxysmal nocturnal dyspnea, palpitations, life-t hreatening arrhythmias, claudication. PULMONARY: Denies any shortness of breath, cough, phlegm/sputum, hemoptysis, pleuritic chest pain. SLEEP: Denies morning headaches, daytime somnolence or napping. Denies difficulty falling asleep, staying asleep, waking from sleep. Denies knowledge of snoring. GASTROINTESTINAL: Denies any type of dysphagia to either liquids or solids. Denies nausea, vomiting, pyrosis, early satiety, abdominal pain, diarrhea, constipation, or changes in stool consistency or caliber. Denies coffee-ground emesis, hematemesis, hematochezia, or melanotic stools. GENITOURINARY: Denies frequency, urgency, nocturia, hematuria or incontinence (Storage/Irritative symptoms.) Low urinary stream, straining to void, urinary intermittency or hesitancy, splitting of the voiding stream, terminal dribbling. ENDOCRINOLOGIC: Denies polyuria, polydipsia, polyphagia or heat/cold intolerances. HEMATOLOGIC: Denies thrombophilia/previous clots, or coagulopathy/bleeding diso rders. ONCOLOGIC: Denies personal history of malignancy. DERMATOLOGIC: Denies rashes or pruritus. PSYCHIATRIC: Denies any suicidal or homicidal ideation. Denies hallucinations. PHYSICAL EXAM GENERAL APPEARANCE: The patient is awake, alert, and oriented, in no acute cardiopulmonary distress. NEUROLOGICAL: Motor is 5/5 in bilateral upper and lower extremities proximal to distal. No sensory deficits. HEENT: Face is symmetric. Pupils are equal and reactive. Extraocular movements are intact. NECK: Supple. No thyromegaly. No submental, submandibular, pre-/postauricular, occipital or supraclavicular lymphadenopathy. CHEST: Normal chest expansion. LUNGS: Absence of any rales, rhonchi or any wheezing. CARDIOVASCULAR: Regular. S1 and S2 normal. No appreciable rubs, murmurs or gallops. ABDOMEN: Soft, nontender, and nondistended. There is no rebound, voluntary guarding, or rigidity. : Deferred. No Peters. EXTREMITIES: Non-edematous and not cyanotic. No clubbing. Good capillary refill. SKIN: No skin breakdown. Vital Signs (last 8hr) Date Time Temp Pulse Resp B/P (MAP) Pulse Ox O2 Delivery O2 Flow Rate FiO2 03/03/25 08:10 97.9 56 16 128/64 96 Room Air 03/03/25 03:35 98.4 58 18 125/63 95 Room Air LABS: Laboratory: Test 03/03/25 06:16 03/03/25 04:09 03/02/25 04:33 03/01/25 20:20 Range/Units Whole Blood Glucose 146 H 70-110 MG/DL White Blood Count 6.6 4.8-10.8 K/uL Red Blood Count 4.61 4.50-6.20 MIL/uL Hemoglobin 13.7 L 14.0-18.0 g/dL Hematocrit 39.4 L 42-54 % Mean Corpuscular Volume 85.5 79-99 fL Mean Corpuscular Hemoglobin 29.7 27.0-33.0 pg Mean Corpuscular Hemoglobin Concent 34.8 32.0-36.0 g/dL Red Cell Distribution Width 14.6 11.0-15.5 % Platelet Count 93 L 130-400 K/uL Mean Platelet Volume 11.0 H 7.5-10.5 fL Nucleated Red Blood Cells 0.0 0.0-0.19 % Sodium Level 136 136-145 mmol/L Potassium Level 4.2 3.5-5.1 mmol/L Chloride Level 103 101-111 mmol/L Carbon Dioxide Level 25 21-32 mmol/L Blood Urea Nitrogen 22 H 7-18 mg/dL Creatinine 1.4 H 0.5-1.3 mg/dL Glomerular Filtration Rate Calc 50 >90 mL/min Random Glucose 144 H 70-105 mg/dL Total Calcium 8.4 L 8.5-10.1 mg/dL Total Bilirubin 0.9 # 0.2-1.0 mg/dL Direct Bilirubin 0.3 # 0.0-0.3 mg/dL Aspartate Amino Transf (AST/SGOT) 34 10-37 U/L Alanine Aminotransferase (ALT/SGPT) 42 # 12-78 U/L Alkaline Phosphatase 66 50-136 U/L Troponin I High Sensitivity 323 *H 4-75 ng/L Total Protein 6.5 6.0-8.3 g/dL Albumin 2.6 L 3.5-5.0 g/dL Lactic Acid Level 1.3 0.8-2.5 mmol/L Phosphorus Level 3.0 2.5-4.9 mg/dL Magnesium Level 2.20 1.80-2.40 mg/dL B-Type Natriuretic Peptide 481 H 0-100 pg/mL Activated Partial Thromboplast Time 51.0 H 26.3-35.5 SEC Current Medications Medications (Trade) Dose Ordered Sig/Stas Route PRN Reason Start Time Stop Time Status Last Admin Dose Admin Apixaban (EliquIS 2.5 mg) 2.5 mg BID PO 03/02/25 09:00 04/01/25 08:59 03/02/25 20:22 2.5 MG Aspirin (Aspirin 81mg Ec Tab) 81 mg DAILY PO 02/28/25 09:00 03/30/25 08:59 03/02/25 09:18 81 MG Atorvastatin Calcium (LIPItor 40MG) 40 mg HS PO 02/28/25 21:00 03/30/25 20:59 03/02/25 20:22 40 MG Ceftriaxone Sodium (ROCEphine 1G INJ) 1 gm Q24H IVPB 03/02/25 09:30 03/12/25 09:29 03/02/25 09:24 1 GM Clopidogrel Bisulfate (plaVIX 75MG) 75 mg DAILY PO 03/01/25 09:00 03/31/25 08:59 03/02/25 09:18 75 MG Famotidine (Pepcid 20mg Tab) 20 mg DAILY PO 02/28/25 09:00 02/28/25 07:20 DC Heparin Sodium (Porcine) (HEParin 5,000 UNIT VIAL) *calculation based on ACTUAL B... AD PRN IV HEPARIN PROTOCOL 02/28/25 02:00 03/02/25 06:44 DC Heparin Sodium/ Dextrose 250 ml @ 0 mls/hr Q6H IV 02/28/25 02:00 03/02/25 06:44 DC 03/01/25 20:31 9.3 MLS/HR Hydralazine HCl (APRESOLine 20MG INJ) 10 mg Q6H PRN IV For:SBP above 160;DBP above 90 02/28/25 02:30 03/30/25 02:29 Insulin Human Regular (humuLIN R 100 UNIT/ML 3ML) INSULIN SLIDING SCAL... ACHS SQ 02/28/25 07:30 03/30/25 07:29 03/02/25 20:21 3 UNIT Lactated Ringer's 1,000 ml @ 75 mls/hr [id number] IV 02/28/25 02:30 03/01/25 07:19 DC 03/01/25 04:11 75 MLS/HR Lactulose (Constulose 20gm/ 30ml Udcup) 20 gm BID PRN PO CONSTIPATION 02/28/25 02:30 03/30/25 02:29 Lisinopril (Prinivil 2.5mg) 2.5 mg DAILY PO 03/01/25 09:00 03/31/25 08:59 03/02/25 09:18 2.5 MG Magnesium Sulfate 50 ml @ 0 mls/hr PROTOCOL PRN IV h 02/28/25 02:30 03/30/25 02:29 03/01/25 04:08 0 MLS/HR Metoprolol Succinate (TopROL XL) 100 mg DAILY PO 03/01/25 09:00 03/31/25 08:59 03/02/25 09:18 100 MG Metoprolol Tartrate (loprESSOR) 25 mg BID PO 02/28/25 21:00 03/01/25 07:00 DC 02/28/25 21:21 25 MG Morphine Sulfate (morPHINE 2MG SYG) 2 mg Q4H PRN IVP SEVERE PAIN (7-10) 02/28/25 02:30 03/07/25 02:29 Nitroglycerin (Nitroglycerin 1gm Oint) 0.5 inch Q8H TD 02/28/25 02:30 03/30/25 02:29 03/03/25 02:22 0.5 INCH Nitroglycerin (Nitrostat) 0.4 mg AD PRN SL CHEST PAIN 02/28/25 01:30 02/28/25 02:21 DC Ondansetron HCl (zoFRAN 4MG INJ) 4 mg Q6H PRN IV NAUSEA/VOMITING 02/28/25 02:30 03/30/25 02:29 02/28/25 18:12 4 MG Pantoprazole Sodium (PROTonix 40MG INJ) 40 mg DAILY IVP 02/28/25 07:30 03/30/25 07:29 03/02/25 09:18 40 MG Piperacillin Sod/ Tazobactam Sod (Zosyn 3.375gm+NS 50ml) 3.375 gm Q8H IV 02/28/25 04:00 03/02/25 09:12 DC 03/02/25 03:00 3.375 GM Potassium Chloride 100 ml @ 100 mls/hr AD PRN IV POTASSIUM PROTOCOL 02/28/25 02:30 03/30/25 02:29 Potassium Chloride (K-Dur/Klor-Con 20meq) 20 meq AD PRN PO POTASSIUM PROTOCOL 02/28/25 02:30 03/30/25 02:29 Potassium Chloride (KCl 10% Elixir 20meq/15ml) 20 meq AD PRN PO POTASSIUM PROTOCOL 02/28/25 02:30 03/30/25 02:29 Sodium Chloride 1,000 ml @ 75 mls/hr [id number] IV 03/01/25 07:30 03/01/25 20:00 DC 03/01/25 09:26 75 MLS/HR DIAGNOSTICS / RADIOLOGY: [ ] ASSESSMENT: NSTEMI, POA Rule out stroke, POA Sepsis due to Urinary tract infection Elevated liver function tests Hyperlactatemia, POA Thrombocytopenia mild, POA Acute on chronic renal failure CKD stage IIIA Diabetes mellitius type2 Hypomagnesemia,POA Hypophosphatemia, POA Hypertension Hyperlipidemia Peripheral artery disease PLAN: NSTEMI, POA He has no symptoms today. Echocardiogram showed that left ventricular ejection fraction is 30-35%, dyskinetic septum and akinetic apex, the right ventricle is mildly dilated and suspected apical thrombus. Cardiology saw the patient they stopped heparin and changed to eliquis 2.5mg. If the patient is stable they are planning to lexiscan stress test on Wednesday. Also they will decide to continue aspirin or not at the time of discharge. His troponin levels are 23>3055>8012>7228>5776>883>323. Rule out stroke, POA He had shaking of limbs at the time of onset of chest pain but now he has no symptoms. CT head is unremarkable. We ruled out seizures. MRI of brain to rule out any neurological changes - report pending Sepsis due to Urinary tract infection Urinalysis showed evidence of UTI He is on Zosyn but due to increased creatinine we changed it to ceftriaxone. Continue ceftriaxone (day 2). Urine culture showed gram negative rods. Elevated liver function tests Discontinued lactate ringer and started him on normal saline. Today his blood work show that bilirubin is decreased from 1.7 to 0.9 AST is de creased from 64 to 34. Hyperlactatemia, POA His lactate levels are 3.1>3.3>3.0>3.5>2>1.3>. Thrombocytopenia mild, POA Blood work showed platelet count is 93. Will repeat his labs tomorrow Acute on chronic renal failure,POA CKD stage IIIA His blood work showed that the BUN is 22 and creatinine is 1.4. We ordered urine electrolytes and creatinine and they were normal except for urine chloride - 63. His FeNa is 1%. urine urea - 648, Fe urea - 39%. His creatinine is increasing cardiology thinks it could be due to Zosyn. So we discontinued Zosyn. Will repeat his labs tomorrow. Diabetes mellitius type2 His hemoglobin A1c is 6.5. Today his blood glucose level is 146. He is on sliding scale insulin. Hypomagnesemia,POA magnesium is 2.2 on 03.02.2024 Will repeat his labs tomorrow Hypophosphatemia, POA Today his phosphorus is 3. Hypertension Today's blood pressure is 128/64. Continue lisinopril 2.5 mg, metoprolol [id number] mg Hyperlipidemia Continue atorvastatin 40 mg. Peripheral artery disease Continue aspirin and clopidogrel. DVT prophylaxis with SCD, heparin. GI prophylaxis with pantoprazole. He is on a heart healthy diet. ATTESTATION BY PHYSICIAN I have seen and examined the patient. I reviewed the documentation, medical decision making, and treatment plan as noted by the resident provider above. I agree with the findings and plan of care. Sandeep Morataya MD, LAKSHMI MD Mar 03, 2025 09:02
--- NOTE | 2025-03-03 14:22 | PN ---
[facility] CARDIOLOGY PROGRESS NOTE Date Patient Seen: Mar 03, 2025 Time of Visit: 14:02 Interval History: This is an 79-year-old male with a past medical history of hyperlipidemia, peripheral artery disease status post a remote right and left femoral bypass with subsequent left iliofemoral bypass with a cadaver vein by Dr. Bell in 2022, intermittent right lower extremity claudication, type 2 diabetes mellitus, hypertension and premature coronary artery disease with remote KY in his 50s, multiple stenting procedures in the past and CABG with IRIZARRY to the LAD, sequential saphenous vein graft to the OM and PDA and saphenous vein graft to the diagonal approximately 2021, CT coronary angiogram October of 2024 demonstrated an atretic IRIZARRY graft and the remaining grafts were patent. There was consideration at that time of stenting of the left main and proximal LAD but he had a stable pattern of angina utilizing nitroglycerin sublingually less than once per month. The patient on this occasion presented to the emergency department on 02/27/2025 with generalized weakness, disequilibrium, throat tightness and retrosternal chest discomfort with the associated nausea and vomiting onset within the hour prior to coming to the emergency department. His EKG in the emergency dep artment demonstrated evidence of new left bundle branch block, his initial troponin was normal and was initiated on an IV heparin drip and antiplatelet therapy with aspirin was given. He was evaluated by Cardiology on 02/28/2025 and was noted to have a rise in troponin to 8012 consistent with an acute KY. He was felt to have completed the KY and continued medical therapy. A 2D e chocardiogram 02/28/2025 demonstrated an LVEF of 30-35%, dyskinetic septum and akinetic apex and suspected apical thrombus. He has now been initiated on triple antithrombotic therapy with aspirin, clopidogrel and Eliquis. He offers no chest pain, no orthopnea, no PND. Telemetry has demonstrated a normal sinus rhythm without complicating arrhythmias. Plans are to proceed with a Lexiscan Cardiolite stress test on Wednesday. Physical Examination: GENERAL: No acute distress. HEAD: Normal with no signs of head trauma. EYES: PERRLA, EOMI, conjunctiva and sclera normal. NECK: Supple without JVD. There is no tenderness, lymphadenopathy, or masses. No thyromegaly. Normal carotid upstrokes without bruits. LUNGS: Clear breath sounds bilaterally. No wheezes, or rhonchi. HEART: Normal rate and rhythm. Normal S1 and S2 without murmurs, gallop or rub. VASC: Peripheral pulses weak to palpate bilaterally. EXT: No clubbing, cyanosis or edema. NEURO: Awake, alert, and oriented x3. No focal neurological deficits noted. Laboratory: Hematology Labs: Test 03/03/25 04:09 Range/Units White Blood Count 6.6 4.8-10.8 K/uL Red Blood Count 4.61 4.50-6.20 MIL/uL Hemoglobin 13.7 L 14.0-18.0 g/dL Hematocrit 39.4 L 42-54 % Mean Corpuscular Volume 85.5 79-99 fL Mean Corpuscular Hemoglobin 29.7 27.0-33.0 pg Mean Corpuscular Hemoglobin Concent 34.8 32.0-36.0 g/dL Red Cell Distribution Width 14.6 11.0-15.5 % Platelet Count 93 L 130-400 K/uL Mean Platelet Volume 11.0 H 7.5-10.5 fL Nucleated Red Blood Cells 0.0 0.0-0.19 % Chemistry Labs: Test 03/03/25 11:21 03/03/25 04:09 03/02/25 04:33 Range/Units Whole Blood Glucose 269 #H 70-110 MG/DL Sodium Level 136 136-145 mmol/L Potassium Level 4.2 3.5-5.1 mmol/L Chloride Level 103 101-111 mmol/L Carbon Dioxide Level 25 21-32 mmol/L Blood Urea Nitrogen 22 H 7-18 mg/dL Creatinine 1.4 H 0.5-1.3 mg/dL Glomerular Filtration Rate Calc 50 >90 mL/min Random Glucose 144 H 70-105 mg/dL Total Calcium 8.4 L 8.5-10.1 mg/dL Total Bilirubin 0.9 # 0.2-1.0 mg/dL Direct Bilirubin 0.3 # 0.0-0.3 mg/dL Aspartate Amino Transf (AST/SGOT) 34 10-37 U/L Alanine Aminotransferase (ALT/SGPT) 42 # 12-78 U/L Alkaline Phosphatase 66 50-136 U/L Troponin I High Sensitivity 323 *H 4-75 ng/L Total Protein 6.5 6.0-8.3 g/dL Albumin 2.6 L 3.5-5.0 g/dL Lactic Acid Level 1.3 0.8-2.5 mmol/L Phosphorus Level 3.0 2.5-4.9 mg/dL Magnesium Level 2.20 1.80-2.40 mg/dL B-Type Natriuretic Peptide 481 H 0-100 pg/mL Coagulation Labs: Test 03/01/25 20:20 Range/Units Activated Partial Thromboplast Time 51.0 H 26.3-35.5 SEC Diagnostics / Radiology: 2D echocardiogram 02/28/2025: Conclusion LVEF is 30-35%. 3D volume EF 32% Reduced GLS -9.0% Dyskinetic septum and akinetic apex. The right ventricle is mildly dilated. Suspected apical thrombus Impression and Plan: Acute myocardial infarction with new left bundle branch block and Sgarbossa criteria for acute myocardial infarction noted on admission and now with completed infarct (troponin peaked at 8012): Coronary artery disease status post prior CABG x4 with IRIZARRY to the LAD, sequential saphenous vein graft to the OM and PDA and saphenous vein graft to the diagonal in 2021: Documented atretic IRIZARRY graft October [address] coronary angiogram: -the patient will continue medical therapy with dual antiplatelet therapy, statin therapy -reduce his metoprolol succinate ER to 50 mg p.o. daily as he has had bradycardia into the 50 beat per minute range now -proceed with plans for Lexiscan Cardiolite stress test on Wednesday -monitor for CHF or an arrhythmias Ischemic cardiomyopathy with an LVEF of 30-35% on 2D echocardiogram 02/28/2025 with a dyskinetic septum and akinetic apex: Apical thrombus noted on 2D echocardiogram 02/28/2025: -patient has been initiated on Eliquis 2.5 mg p.o. b.i.d. in addition to his dual antiplatelet therapy -continue low-dose lisinopril and reduce his metoprolol succinate ER to 50 mg p.o. daily Acute on chronic renal failure with creatinine of 1.9: -improving to a creatinine of 1.4 Thrombocytopenia with platelet count of 93 today: -continue to monitor CBC on triple antithrombotic therapy Comorbidities: Peripheral artery disease status post right and left femoral artery bypasses and subsequent left iliofemoral cadaver bypass by Dr. Bell in 2022 Intermittent right lower extremity claudication Type 2 diabetes mellitus Hypertension Hyperlipidemia PHYSICIAN ATTESTATION OF PHYSICIAN ASSOCIATE STORE LEADER DOCUMENTATION: I attest that I was physically present for the unger portions of the service and evaluated the patient with the Physician Director Medical, and I reviewed and discussed the case with the Physician Director Medical and made modifications to the Physician Ext brett's findings and plans of care as documented above JONH ARSHAD Mar 03, 2025 14:22 VIRGINIA DAVIDSON MD Mar 04, 2025 14:05
[2025-03-04] VITALS (8 sets, daily range): BP systolic 93–147; BP diastolic 51–69; PULSE 60–71; RESP 18–20; TEMP 97.7–98.4; O2SAT 96–97
[2025-03-04 03:49] LABS: IMMATURE GRANULOCYTE ABSOLUTE 0.03 K/uL (0-1); NUCLEATED RED BLOOD CELLS 0.0 % (0.0-0.19); PLATELET COUNT (AUTO) 124 K/uL (130-400); RED BLOOD CELL COUNT(AUTO) 4.72 MIL/uL (4.50-6.20); RED CELL DISTRIBUTION WIDTH 14.5 % (11.0-15.5); WHITE BLOOD COUNT (AUTO) 6.7 K/uL (4.8-10.8)
[2025-03-04 04:03] LABS: CREATININE 1.3 mg/dL (0.5-1.3); GLOMERULAR FILTR. RATE CALC 55.0 mL/min (>90); GLUCOSE,RANDOM 164.0 mg/dL (70-105); SODIUM SERUM 136.0 mmol/L (136-145); UREA NITROGEN, BLOOD 19.0 mg/dL (7-18)
--- NOTE | 2025-03-04 10:38 | PN ---
[facility] CARDIOLOGY PROGRESS NOTE Date Patient Seen: Mar 04, 2025 Time of Visit: 10:35 Interval History: This is an 79-year-old male with a past medical history of hyperlipidemia, peripheral artery disease status post a remote right and left femoral bypass with subsequent left iliofemoral bypass with a cadaver vein by Dr. Bell in 2022, intermittent right lower extremity claudication, type 2 diabetes mellitus, hypertension and premature coronary artery disease with remote IL in his 50s, multiple stenting procedures in the past and CABG with IRIZARRY to the LAD, sequential saphenous vein graft to the OM and PDA and saphenous vein graft to the diagonal approximately 2021, CT coronary angiogram October of 2024 demonstrated an atretic IRIZARRY graft and the remaining grafts were patent. There was consideration at that time of stenting of the left main and proximal LAD but he had a stable pattern of angina utilizing nitroglycerin sublingually less than once per month. The patient on this occasion presented to the emergency department on 02/27/2025 with generalized weakness, disequilibrium, throat tightness and retrosternal chest discomfort with the associated nausea and vomiting onset within the hour prior to coming to the emergency department. His EKG in the emergency dep artment demonstrated evidence of new left bundle branch block, his initial troponin was normal and was initiated on an IV heparin drip and antiplatelet therapy with aspirin was given. He was evaluated by Cardiology on 02/28/2025 and was noted to have a rise in troponin to 8012 consistent with an acute IL. He was felt to have completed the IL by 02/28/2025 and continued medical therapy. A 2D echocardiogram 02/28/2025 demonstrated an LVEF of 30-35%, dyskinetic septum and akinetic apex and suspected apical thrombus. He has now been initiated on triple antithrombotic therapy with aspirin, clopidogrel and Eliquis. He offers no chest pain, no orthopnea, no PND. Telemetry has demonstrated a normal sinus rhythm without complicating arrhythmias. Plans are to proceed with a Lexiscan Cardiolite stress test in a.m. Physical Examination: GENERAL: No acute distress. HEAD: Normal with no signs of head trauma. EYES: PERRLA, EOMI, conjunctiva and sclera normal. NECK: Supple without JVD. There is no tenderness, lymphadenopathy, or masses. No thyromegaly. Normal carotid upstrokes without bruits. LUNGS: Clear breath sounds bilaterally. No wheezes, or rhonchi. HEART: Normal rate and rhythm. Normal S1 and S2 without murmurs, gallop or rub. VASC: Peripheral pulses weak to palpate bilaterally. EXT: No clubbing, cyanosis or edema. NEURO: Awake, alert, and oriented x3. No focal neurological deficits noted. Laboratory: Hematology Labs: Test 03/04/25 03:17 Range/Units White Blood Count 6.7 4.8-10.8 K/uL Red Blood Count 4.72 4.50-6.20 MIL/uL Hemoglobin 13.6 L 14.0-18.0 g/dL Hematocrit 40.5 L 42-54 % Mean Corpuscular Volume 85.8 79-99 fL Mean Corpuscular Hemoglobin 28.8 27.0-33.0 pg Mean Corpuscular Hemoglobin Concent 33.6 32.0-36.0 g/dL Red Cell Distribution Width 14.5 11.0-15.5 % Platelet Count 124 #L 130-400 K/uL Mean Platelet Volume 11.6 H 7.5-10.5 fL Immature Granulocyte % (Auto) 0.4 0-1 % Neutrophils (%) (Auto) 53.3 40.0-77.0 % Lymphocytes (%) (Auto) 26.6 21.0-51.0 % Monocytes (%) (Auto) 14.8 H 3.0-13.0 % Eosinophils (%) (Auto) 4.5 0.0-8.0 % Basophils (%) (Auto) 0.4 0.0-5.0 % Neutrophils # (Auto) 3.6 1.8-7.7 K/uL Lymphocytes # (Auto) 1.8 1.0-4.8 K/uL Monocytes # (Auto) 1.0 0.1-1.0 K/uL Eosinophils # (Auto) 0.30 0.00-0.70 K/uL Basophils # (Auto) 0.03 0.00-0.20 K/uL Absolute Immature Granulocyte (auto 0.03 0-1 K/uL Nucleated Red Blood Cells 0.0 0.0-0.19 % Chemistry Labs: Test 03/04/25 06:44 03/04/25 03:17 03/03/25 04:09 Range/Units Whole Blood Glucose 172 H 70-110 MG/DL Sodium Level 136 136-145 mmol/L Potassium Level 4.1 3.5-5.1 mmol/L Chloride Level 102 101-111 mmol/L Carbon Dioxide Level 28 21-32 mmol/L Blood Urea Nitrogen 19 H 7-18 mg/dL Creatinine 1.3 0.5-1.3 mg/dL Glomerular Filtration Rate Calc 55 >90 mL/min Random Glucose 164 H 70-105 mg/dL Total Calcium 8.5 8.5-10.1 mg/dL Total Bilirubin 0.9 # 0.2-1.0 mg/dL Direct Bilirubin 0.3 # 0.0-0.3 mg/dL Aspartate Amino Transf (AST/SGOT) 34 10-37 U/L Alanine Aminotransferase (ALT/SGPT) 42 # 12-78 U/L Alkaline Phosphatase 66 50-136 U/L Troponin I High Sensitivity 323 *H 4-75 ng/L Total Protein 6.5 6.0-8.3 g/dL Albumin 2.6 L 3.5-5.0 g/dL Diagnostics / Radiology: 2D echocardiogram 02/28/2025: Conclusion LVEF is 30-35%. 3D volume EF 32% Reduced GLS -9.0% Dyskinetic septum and akinetic apex. The right ventricle is mildly dilated. Suspected apical thrombus Impression and Plan: Acute myocardial infarction with new left bundle branch block and Sgarbossa criteria for acute myocardial infarction noted on admission and now with completed infarct (troponin peaked at 8012): Coronary artery disease status post prior CABG x4 with IRIZARRY to the LAD, sequential saphenous vein graft to the OM and PDA and saphenous vein graft to the diagonal in 2021: Documented atretic IRIZARRY graft October [address] coronary angiogram: -the patient will continue medical therapy with dual antiplatelet therapy, s tatin therapy -continue with reduce metoprolol succinate ER 50 mg daily (reduced from metoprolol succinate ER 100 mg daily due to bradycardia in the 50 beat per minute range) -proceed with plans for Lexiscan Cardiolite stress test on Wednesday -monitor for CHF or an arrhythmias Ischemic cardiomyopathy with an LVEF of 30-35% on 2D echocardiogram 02/28/2025 with a dyskinetic septum and akinetic apex: Apical thrombus noted on 2D echocardiogram 02/28/2025: -patient has been initiated on Eliquis 2.5 mg p.o. b.i.d. in addition to his dual antiplatelet therapy -continue low-dose lisinopril and metoprolol succinate ER to 50 mg p.o. daily Acute on chronic renal failure with creatinine of 1.9: -improving to a creatinine of 1.3 Thrombocytopenia with platelet count of 93 on 03/03/2025: -platelet count today 124 -continue to monitor CBC on triple antithrombotic therapy Comorbidities: Peripheral artery disease status post right and left femoral artery bypasses and subsequent left iliofemoral cadaver bypass by Dr. Bell in 2022 Intermittent right lower extremity claudication Type 2 diabetes mellitus Hypertension Hyperlipidemia PHYSICIAN ATTESTATION OF PHYSICIAN EMPLOYMENT SERVICE SPECIALIST DOCUMENTATION: I attest that I was physically present for the unger portions of the service and evaluated the patient with the [employer], and I reviewed and discussed the case with the [employer] and made modifications to the [employer]'s findings and plans of care as documented above JONH ARSHAD Mar 04, 2025 10:38 VIRGINIA DAVIDSON MD Mar 04, 2025 13:29
--- NOTE | 2025-03-04 15:49 | PN ---
[facility] PROGRESS NOTE Date of Service: Mar 04, 2025 Time of Service: 15:37 SUBJECTIVE: He is a 79-year-old male past medical history of Diabetes mellitius type2, hyperlipidemia, hypertension, peripheral artery disease, bladder CA came to ER with chief complaint of chest pain since yesterday. Location is midsternal. Duration is on and off. Character is described as pressure. There was no alleviating factors. There was no aggravating factors. Patient reports associated nausea and vomiting x1 episode as well as shaking. Surgical history includes Left femoral popliteal bypass, CABG x4, cataract surgery. He drinks one beer that is 12 oz about once a week In the emergency department platelets 124, creatinine 1.5, BUN 21, initial troponin unremarkable, BNP unremarkable, no urinalysis has been collected or sent to lab. Chest x-ray is unremarkable. Repeat troponin is 3055. Emergency room physician contacted conduit mechanic on- call, Dr. Gonzalez who requested patient be admitted under hospitalist service. Patient is kept NPO. No need for Plavix for ticagrelor. Patient started on a heparin drip. 02/28/2025: Patient is seen and evaluated in the ER. He has mild chest pain and has no other symptoms. His examination is normal and his vitals are in the normal range. His labs are in the normal range except WBC 4, platelets 124,bilirubin is 1.1, AST is 43, HbA1c 6.5, procalcitonin is 8.81, BUN is 21, creatinine is 1.5, phosphorus is 1.4, magnesium is 1.6, creatine kinase is 28. His lactic acid level is 3.3>3>3.1. When he was receiving heparin his APTT is increased to 111.3. So the nurse stopped heparin for an hour and then she resumed heparin. His recent APTT is 67.8. His EKG showed ST segment elevation in V1 to V4. Cardiology saw the patient and they are ordered 2D echo. Also on echocardiogram if there is severe hypokinesis or akinesis of the anterior wall then they recommended medical management and Lexiscan Cardiolite stress test prior to hospital discharge for risk stratification and on the other hand if there was significant wall motion preservation of the anterior wall then they will consider left heart catheterization and stenting of the protected left main into the LAD. Echocardiogram showed that left ventricular ejection fraction is 30-35%, dyskinetic septum and akinetic apex, the right ventricle is mildly dilated and suspected apical thrombus. As he had some neurological symptoms his CT head was also done and we are waiting for the report. As is magnesium and phosphorus are low we replaced them. He is started on heart healthy diet. 03/01/2025: Patient is seen and evaluated in the room 225. He has no symptoms today. His examination is normal and his vitals are in the normal range. His saturation is 96% on 2L of O2. His labs are in the normal range except for Hb is 13.7, HCT is 11.5, MPV is 11.5, APTT is 65.2, BUN is 26, Creatinine is 1.9, ma gnesium is 1.7, bilirubin is 1.7, AST 61. Blood culture showed no growth after [address] is unremarkable. Echocardiogram show that LVEF is 30 to 35%, suspected apical thrombus, dyskinetic septum, akinetic apex. Cardiology saw the patient and they switched metoprolol tartrate to metoprolol succinate, they administered heparin for another 24 hours and watch his platelet levels. They are also considering to change heparin to eliquis in 24 hours. Today morning the nurse administered him heparin, after administering heparin his PTT is elevated at 93.9. So she held heparin for an hour and then she restarted it at a decreased dose. He doesn't want PT. Urine electrolytes are in the normal range except for urine chloride which is 63. FeNa is 1%. We also ordered urine urea. Due to elevation in the liver enzymes we discontinued lactate ringer and started him on Normal saline. His urine culture showed >100,000 CFU. Identification and susceptibility are in process. 03/02/2025: Patient is seen and evaluated in the room 225. He has no symptoms today. His examination is normal and his vitals are in the normal range. His oxygen saturation is 95% on 2L of O2. His labs are in the normal range except for Hb is 13, Plt is 84, HCT is 38.3, Sodium is 135, BUN is 28, Cr is 1.9, Glucose is 208, bilirubin is 1.4, troponin is 883, BNP is 481. His liver enzyme are improving after stopping lactate ringer. His troponin levels are going down. Cardiology saw him and they are concerned about raising creatinine levels and they think it could be due to Zosyn. So we discontinued Zosyn and we started him on ceftriaxone. Cardiology also discontinued heparin and they started him on Eliquis 2.5mg. They are planning to do a Lexiscan stress test on Wednesday and at they time of discharge they will consider continuing aspirin or not. We ordered MRI of brain because he presented with shaking of legs and to rule out any neurological abnormalities. Urine culture showed gram negative rods and identification and susceptibility are in process. 03/03/2025: Patient was seen and evaluated in room 225. He reports right calf pain but has no edema, tenderness on palpation, or shakiness in the legs today. He has a history of peripheral artery disease, which may explain his symptoms. Troponin has decreased from 883 yesterday to 323 today. He is scheduled for a Lexiscan stress test on Wednesday. Platelet count has improved from 84 to 93. Kidney function is improving, with creatinine 1.4 and BUN 22. MRI brain has been completed; report is pending. Cardiology recommendations will be followed. 03/04/2025: Patient was seen and evaluated in the room 225. The patient appears to be seem better compared to yesterday. Labs revealed WBC 6.7, hemoglobin 13.6, hematocrit 40.5, platelet count 124. The chemistry revealed sodium 136, potassium 4.1, [id number], bicarbonate 28, BUN 19, creatinine 1.3, calcium 8.5. Pending brain MRI imaging results. Waiting for the Lexiscan stress test to be done on Wednesday. The patient will be continuously monitored and appropriate treatment will be given to make sure that patient will be hemodynamically stable. REVIEW OF SYSTEMS CONSTITUTIONAL: Denies fevers, chills, or night sweats. No unintentional weight loss reported. NEUROLOGICAL: Denies headache, amaurosis fugax, motor weakness, sensory deficit, vertigo/spinning sensation, gait abnormalities, or tremors. ENT: No hearing loss, otalgia, otorrhea, rhinitis, rhinorrhea, hoarseness, or sore throat. CARDIOVASCULAR: Denies any chest pain, exertional angina, dyspnea on exertion, orthopnea, paroxysmal nocturnal dyspnea, palpitations, life- threatening arrhythmias, claudication. PULMONARY: Denies any shortness of breath, cough, phlegm/sputum, hemoptysis, pleuritic chest pain. SLEEP: Denies morning headaches, daytime somnolence or napping. Denies difficulty falling asleep, staying asleep, waking from sleep. Denies knowledge of snoring. GASTROINTESTINAL: Denies any type of dysphagia to either liquids or solids. Denies nausea, vomiting, pyrosis, early satiety, abdominal pain, diarrhea, constipation, or changes in stool consistency or caliber. Denies coffee-ground emesis, hematemesis, hematochezia, or melanotic stools. GENITOURINARY: Denies frequency, urgency, nocturia, hematuria or incontinence (Storage/Irritative symptoms.) Low urinary stream, straining to void, urinary intermittency or hesitancy, splitting of the voiding stream, terminal dribbling. ENDOCRINOLOGIC: Denies polyuria, polydipsia, polyphagia or heat/cold intolerances. HEMATOLOGIC: Denies thrombophilia/previous clots, or coagulopathy/bleeding disorders. ONCOLOGIC: Denies personal history of malignancy. DERMATOLOGIC: Denies rashes or pruritus. PSYCHIATRIC: Denies any suicidal or homicidal ideation. Denies hallucinations. PHYSICAL EXAM GENERAL APPEARANCE: The patient is awake, alert, and oriented, in no acute cardiopulmonary distress. NEUROLOGICAL: Motor is 5/5 in bilateral upper and lower extremities proximal to distal. No sensory deficits. HEENT: Face is symmetric. Pupils are equal and reactive. Extraocular movements are intact. NECK: Supple. No thyromegaly. No submental, submandibular, pre-/postauricular, occipital or supraclavicular lymphadenopathy. CHEST: Normal chest expansion. LUNGS: Absence of any rales, rhonchi or any wheezing. CARDIOVASCULAR: Regular. S1 and S2 normal. No appreciable rubs, murmurs or gallops. ABDOMEN: Soft, nontender, and nondistended. There is no rebound, voluntary guarding, or rigidity. : Deferred. No Peters. EXTREMITIES: Non-edematous and not cyanotic. No clubbing. Good capillary refill. SKIN: No skin breakdown. Vital Signs (last 8hr) Date Time Temp Pulse Resp B/P (MAP) Pulse Ox O2 Delivery O2 Flow Rate FiO2 03/04/25 12:00 97.9 61 19 141/62 96 Room Air 03/04/25 08:00 97.9 61 19 93/60 95 Room Air 03/04/25 08:00 97 Room Air* 0 21 LABS: Laboratory: Test 03/04/25 06:44 03/04/25 03:17 03/03/25 04:09 Range/Units Whole Blood Glucose 172 H 70-110 MG/DL White Blood Count 6.7 4.8-10.8 K/uL Red Blood Count 4.72 4.50-6.20 MIL/uL Hemoglobin 13.6 L 14.0-18.0 g/dL Hematocrit 40.5 L 42-54 % Mean Corpuscular Volume 85.8 79-99 fL Mean Corpuscular Hemoglobin 28.8 27.0-33.0 pg Mean Corpuscular Hemoglobin Concent 33.6 32.0-36.0 g/dL Red Cell Distribution Width 14.5 11.0-15.5 % Platelet Count 124 #L 130-400 K/uL Mean Platelet Volume 11.6 H 7.5-10.5 fL Immature Granulocyte % (Auto) 0.4 0-1 % Neutrophils (%) (Auto) 53.3 40.0-77.0 % Lymphocytes (%) (Auto) 26.6 21.0-51.0 % Monocytes (%) (Auto) 14.8 H 3.0-13.0 % Eosinophils (%) (Auto) 4.5 0.0-8.0 % Basophils (%) (Auto) 0.4 0.0-5.0 % Neutrophils # (Auto) 3.6 1.8-7.7 K/uL Lymphocytes # (Auto) 1.8 1.0-4.8 K/uL Monocytes # (Auto) 1.0 0.1-1.0 K/uL Eosinophils # (Auto) 0.30 0.00-0.70 K/uL Basophils # (Auto) 0.03 0.00-0.20 K/uL Absolute Immature Granulocyte (auto 0.03 0-1 K/uL Nucleated Red Blood Cells 0.0 0.0-0.19 % Sodium Level 136 136-145 mmol/L Potassium Level 4.1 3.5-5.1 mmol/L Chloride Level 102 101-111 mmol/L Carbon Dioxide Level 28 21-32 mmol/L Blood Urea Nitrogen 19 H 7-18 mg/dL Creatinine 1.3 0.5-1.3 mg/dL Glomerular Filtration Rate Calc 55 >90 mL/min Random Glucose 164 H 70-105 mg/dL Total Calcium 8.5 8.5-10.1 mg/dL Total Bilirubin 0.9 # 0.2-1.0 mg/dL Direct Bilirubin 0.3 # 0.0-0.3 mg/dL Aspartate Amino Transf (AST/SGOT) 34 10-37 U/L Alanine Aminotransferase (ALT/SGPT) 42 # 12-78 U/L Alkaline Phosphatase 66 50-136 U/L Troponin I High Sensitivity 323 *H 4-75 ng/L Total Protein 6.5 6.0-8.3 g/dL Albumin 2.6 L 3.5-5.0 g/dL Current Medications Medications (Trade) Dose Ordered Sig/Stas Route PRN Reason Start Time Stop Time Status Last Admin Dose Admin Apixaban (EliquIS 2.5 mg) 2.5 mg BID PO 03/02/25 09:00 04/01/25 08:59 03/04/25 08:03 2.5 MG Aspirin (Aspirin 81mg Ec Tab) 81 mg DAILY PO 02/28/25 09:00 03/30/25 08:59 03/04/25 08:03 81 MG Atorvastatin Calcium (LIPItor 40MG) 40 mg HS PO 02/28/25 21:00 03/30/25 20:59 03/03/25 20:28 40 MG Ceftriaxone Sodium (ROCEphine 1G INJ) 1 gm Q24H IVPB 03/02/25 09:30 03/12/25 09:29 03/04/25 08:02 1 GM Clopidogrel Bisulfate (plaVIX 75MG) 75 mg DAILY PO 03/01/25 09:00 03/31/25 08:59 03/04/25 08:04 75 MG Famotidine (Pepcid 20mg Tab) 20 mg DAILY PO 02/28/25 09:00 02/28/25 07:20 DC Heparin Sodium (Porcine) (HEParin 5,000 UNIT VIAL) *calculation based on ACTUAL B... AD PRN IV HEPARIN PROTOCOL 02/28/25 02:00 03/02/25 06:44 DC Heparin Sodium/ Dextrose 250 ml @ 0 mls/hr Q6H IV 02/28/25 02:00 03/02/25 06:44 DC 03/01/25 20:31 9.3 MLS/HR Hydralazine HCl (APRESOLine 20MG INJ) 10 mg Q6H PRN IV For:SBP above 160;DBP above 90 02/28/25 02:30 03/30/25 02:29 Insulin Human Regular (humuLIN R 100 UNIT/ML 3ML) INSULIN SLIDING SCAL... ACHS SQ 02/28/25 07:30 03/30/25 07:29 03/03/25 20:27 3 UNIT Lactated Ringer's 1,000 ml @ 75 mls/hr [id number] IV 02/28/25 02:30 03/01/25 07:19 DC 03/01/25 04:11 75 MLS/HR Lactulose (Constulose 20gm/ 30ml Udcup) 20 gm BID PRN PO CONSTIPATION 02/28/25 02:30 03/30/25 02:29 Lisinopril (Prinivil 2.5mg) 2.5 mg DAILY PO 03/01/25 09:00 03/31/25 08:59 03/04/25 08:03 2.5 MG Magnesium Sulfate 50 ml @ 0 mls/hr PROTOCOL PRN IV h 02/28/25 02:30 03/30/25 02:29 03/01/25 04:08 0 MLS/HR Metoprolol Succinate (TopROL XL) 50 mg DAILY PO 03/04/25 09:00 04/03/25 08:59 Metoprolol Succinate (TopROL XL) 100 mg DAILY PO 03/01/25 09:00 03/03/25 14:23 DC 03/03/25 09:55 100 MG Metoprolol Tartrate (loprESSOR) 25 mg BID PO 02/28/25 21:00 03/01/25 07:00 DC 02/28/25 21:21 25 MG Morphine Sulfate (morPHINE 2MG SYG) 2 mg Q4H PRN IVP SEVERE PAIN (7-10) 02/28/25 02:30 03/07/25 02:29 Nitroglycerin (Nitroglycerin 1gm Oint) 0.5 inch Q8H TD 02/28/25 02:30 03/30/25 02:29 03/04/25 11:58 0.5 INCH Nitroglycerin (Nitrostat) 0.4 mg AD PRN SL CHEST PAIN 02/28/25 01:30 02/28/25 02:21 DC Ondansetron HCl (zoFRAN 4MG INJ) 4 mg Q6H PRN IV NAUSEA/VOMITING 02/28/25 02:30 03/30/25 02:29 02/28/25 18:12 4 MG Pantoprazole Sodium (PROTonix 40MG INJ) 40 mg DAILY IVP 02/28/25 07:30 03/30/25 07:29 03/04/25 08:09 40 MG Piperacillin Sod/ Tazobactam Sod (Zosyn 3.375gm+NS 50ml) 3.375 gm Q8H IV 02/28/25 04:00 03/02/25 09:12 DC 03/02/25 03:00 3.375 GM Potassium Chloride 100 ml @ 100 mls/hr AD PRN IV POTASSIUM PROTOCOL 02/28/25 02:30 03/30/25 02:29 Potassium Chloride (K-Dur/Klor-Con 20meq) 20 meq AD PRN PO POTASSIUM PROTOCOL 02/28/25 02:30 03/30/25 02:29 Potassium Chloride (KCl 10% Elixir 20meq/15ml) 20 meq AD PRN PO POTASSIUM PROTOCOL 02/28/25 02:30 03/30/25 02:29 Sodium Chloride 1,000 ml @ 75 mls/hr [id number] IV 03/01/25 07:30 03/01/25 20:00 DC 03/01/25 09:26 75 MLS/HR DIAGNOSTICS / RADIOLOGY: [ ] ASSESSMENT: NSTEMI, POA Rule out stroke, POA Sepsis due to Urinary tract infection Elevated liver function tests Hyperlactatemia, POA Thrombocytopenia mild, POA Acute on chronic renal failure CKD stage IIIA Diabetes mellitius type2 Hypomagnesemia,POA Hypophosphatemia, POA Hypertension Hyperlipidemia Peripheral artery disease PLAN: NSTEMI, POA He has no symptoms today. Cardiology saw the patient yesterday , stopped heparin and changed to eliquis 2.5mg. If the patient is stable they are planning to lexiscan stress test on Wednesday. Also they will decide to continue aspirin or not at the time of discharge. His troponin levels were 23>3055>8012>7228>5776>883>323. Rule out stroke, POA He had shaking of limbs at the time of onset of chest pain but now he has no symptoms. CT head is unremarkable. We ruled out seizures. MRI of brain to rule out any neurological changes - report pending Sepsis due to Urinary tract infection Urinalysis showed evidence of UTI He is on Zosyn but due to increased creatinine we changed it to ceftriaxone. Continue ceftriaxone (day 3). Urine culture showed gram negative rods. Elevated liver function tests Discontinued lactate ringer and started him on normal saline. Today his blood work show that bilirubin is decreased from 1.7 to 0.9 AST is dec reased from 64 to 34. Thrombocytopenia mild, POA Blood work showed platelet count is 124 Will repeat his labs tomorrow Acute on chronic renal failure,POA CKD stage IIIA His blood work showed that the BUN is 28 and creatinine is 1.9. His creatinine is increasing cardiology thinks it could be due to Zosyn. So we discontinued Zosyn. Will repeat his labs tomorrow. Diabetes mellitius type2 His hemoglobin A1c is 6.5. Today his blood glucose level is 230 He is on sliding scale insulin. Hyperlipidemia Continue atorvastatin 40 mg. Peripheral artery disease Continue aspirin and clopidogrel. DVT prophylaxis with SCD, heparin. GI prophylaxis with pantoprazole. He is on a heart healthy diet. ATTESTATION BY PHYSICIAN I have seen and examined the patient. I reviewed the documentation, medical decision making, and treatment plan as noted by the mid-level provider above. I agree with the findings and plan of care. Zafar dale HARSHA MD Mar 04, 2025 15:49
--- NOTE | 2025-03-05 02:05 | NUR ---
NITRO PATCH HELD, PT PENDING CARDIAC STRESS TEST IN AM. PT DENIES CHEST PAIN OR DISCOMFORT
[2025-03-05 03:54] VITALS: BP 109/60; PULSE 75; RESP 18; TEMP 98
[2025-03-05 04:03] LABS: IMMATURE GRANULOCYTE ABSOLUTE 0.04 K/uL (0-1); NUCLEATED RED BLOOD CELLS 0.0 % (0.0-0.19); PLATELET COUNT (AUTO) 163 K/uL (130-400); RED BLOOD CELL COUNT(AUTO) 5.38 MIL/uL (4.50-6.20); RED CELL DISTRIBUTION WIDTH 14.3 % (11.0-15.5); WHITE BLOOD COUNT (AUTO) 7.4 K/uL (4.8-10.8)
[2025-03-05 04:08] LABS: CREATININE 1.2 mg/dL (0.5-1.3); GLOMERULAR FILTR. RATE CALC 61.0 mL/min (>90); GLUCOSE,RANDOM 225.0 mg/dL (70-105); SODIUM SERUM 137.0 mmol/L (136-145); UREA NITROGEN, BLOOD 20.0 mg/dL (7-18)
--- NOTE | 2025-03-05 06:52 | PN ---
[facility] Cardiology Progress Note CARDIOLOGY PROGRESS NOTE 2024 Problems: 1. Acute myocardial infarction with new left bundle branch block and Sgarbossa criteria for acute myocardial infarction 2. Remote history of myocardial infarction status post stenting procedures and subsequent aortocoronary bypass graft surgery with a IRIZARRY graft to the LAD sequential vein graft to the obtuse marginal artery and PDA and vein graft to the diagonal artery 2021 with documented atretic IRIZARRY graft October 2024 with LV ejection fraction of 30-35% and apical thrombus on echo this admission 3. Peripheral arterial disease status post right and left femoral artery bypasses and subsequent left iliofemoral cadaver bypass 4. Hypertension 5. Diabetes mellitus type 2 6. Dyslipidemia 7. Thrombocytopenia now resolved 8. Acute on Chronic kidney disease stage IIIb The patient is pain-free. No new murmurs are audible. Blood pressure is running between 110 and 130 systolic heart rate in the 70s the patient is afebrile. Hemoglobin 15.6 platelet count [id number]. Potassium 4.1 BUN 20 creatinine 1.2. The patient continues on apixaban 2.5 mg b.i.d. aspirin atorvastatin clopidogrel insulin scale lisinopril metoprolol succinate pantopra zole and potassium protocol. The patient is scheduled for a Lexiscan Cardiolite stress test today for risk stratification. If he has significant reversible ischemia left heart catheterization will be undertaken. This shows a predominantly fixed defect we will plan on discharge home tonight. Over the weekend he has been pain-free. He has been fully ambulatory without difficulty. I will discontinue aspirin and continue with clopidogrel and apixaban. BONITA MEDEL MD Mar 05, 2025 06:52
[2025-03-05] MEDS ORDERED: APIX2.5T PO (06:55)
[2025-03-05] MEDS ORDERED: CLOP-31 PO (06:55)
[2025-03-05] MEDS ORDERED: LISI2.5T13 PO (06:55)
[2025-03-05] MEDS ORDERED: METO50TA9 PO (06:55)
[2025-03-05 07:00] VITALS: BP 150/64; PULSE 66; RESP 18; TEMP 97.4
[2025-03-05] MEDS: REGADENOSON 0.4 MG/5 ML PF SYG IVP ONE ×2 (07:50→11:09)
[2025-03-05 08:00] VITALS: O2SAT 94
--- NOTE | 2025-03-05 10:00 | NUR ---
LEXISCAN STRESS TEST COMPLETED. POSSIBLE DISMISSAL HOME THIS AFTERNOON ONCE RESULTS ARE BACK.
[2025-03-05 11:00] VITALS: BP 130/71; PULSE 70; RESP 20; TEMP 97.5
--- NOTE | 2025-03-05 14:57 | HMCSR ---
APPROVED REPORT Height: 5 ft 10in Weight: 186 lbs TEST INDICATIONS MN The imaging protocol used to acquire images was Rest Tc-99m/stress Tc-99m 1 day Consent: The procedure was explained and understood by the patient. Informerd consent was witnessed Tonya Rodriguez RN First, low dose rest was performed then high dose stress. RESTING DATA: The resting ekg shows: SR with RBBB Rest SPECT myocardial perfusion imaging was performed in supine position minutes following the intra venous injection of 10.5 mCi of Tc-99 Sestamibi. Time of rest injection: 07:30: Date: 03/05/2025 PHARMACOLOGIC STRESS: Pharmacologic stress test was performed by injecting regadenoson 0.4 mg IV push followed by the intra venous injection of 28 mCi of Tc-99 Sestamibi. Time of stress injection: 08:45: Date: 03/05/2025 Heart Rate at time of stress injection: 81 bpm. Gated Stress SPECT was performed 60 minutes after stress injection. The images were gated to evaluate regional wall motion and calculate left ventricular ejection fracti on. STRESS DETAILS Reason for Termination: Infusion complete Stress Symptoms: Cough, Light Headed, Dyspnea Max HR Achieved: 88 bpm % of APMHR Achieved: 74 Max Blood Pressure: 120/58 mmHg Stress ECG: no change Study quality was good. Lung uptake was Normal. Artifact: No artifact LEFT VENTRICLE Size: The left ventricular size is normal. Systolic Function:The left ventricular systolic function is normal. Wall Motion: Hypokinesis of the septum. The left ventricular ejection fraction was calculated to be 57%.TID = 1.07. LV PERFUSION Perfusion defects of the septum, anteroseptum and apex however with partial improvement in stress victorino ging of these regions. RV Size/Shape Not well visualized. IMPRESSION Equivocally normal nuclear stress test. Global LV Function: Normal Stress ECG Summary: Normal LV Perfusion Summary: No ischemia. No infarction. Conclusion Perfusion defects of the septum, anteroseptum and apex however with partial improvement in stress victorino ging of these regions. Stress LVEF 57%. Hypokinesis of the septum. No TID (1.07)
[2025-03-05 16:00] VITALS: BP 125/58; PULSE 64; RESP 20; TEMP 97
--- NOTE | 2025-03-05 18:00 | NUR ---
DISMISSAL INSTRUCTIONS GIVEN TO PATIENT, VERBALIZED UNDERSTANDING. REMOVED TELE PACK, REMOVED SALINE LOCK FROM RIGHT ARM, RIGHT HAND, LEFT ARM. ALL IV SITES WITHOUT REDNESS NOTED.
--- NOTE | 2025-03-05 18:15 | NUR ---
TAKEN TO PRIVATE CAR ALONG WITH PERSONAL BELONGINGS, INCLUDING BLUE CANE, VIA WHEELCHAIR BY ANNALISA STRANGE.
--- NOTE | 2025-03-05 18:58 | DS ---
Discharge Summary Hospital Course Summary: Patient information: Name: Mj Sanford Date of : 1945 Admission date: 02/28/2025 Attending physician: Dar Sun MD Admitting diagnosis: NSTEMI, POA Hyperlactatemia, POA Thrombocytopenia mild, POA CKD stage IIIA Diabetes mellitius type2 Hypertension Hyperlipidemia Peripheral artery disease Course in hospital: He is a 79-year-old male past medical history of Diabetes mellitius type2, hyperlipidemia, hypertension, peripheral artery disease, bladder CA came to ER with chief complaint of chest pain since yesterday. Location is midsternal. Duration is on and off. Character is described as pressure. There was no alleviating factors. There was no aggravating factors. Patient reports associated nausea and vomiting x1 episode as well as shaking. Surgical history includes Left femoral popliteal bypass, CABG x4, cataract surgery. He drinks one beer that is 12 oz about once a week In the emergency department platelets 124, creatinine 1.5, BUN 21, initial troponin unremarkable, BNP unremarkable, no urinalysis has been collected or sent to lab. Chest x-ray is unremarkable. Repeat troponin is 3055. the automation developer figure clerk was consulted. The patient is admitted to the hospital for further management. The patient was kept NPO for any procedures by cardiology. He was started on heparin drip and heparin protocol was followed. His EKG showed ST segment elevation in V1 to V4. Cardiology saw the patient and they are ordered 2D echo. Echocardiogram showed that left ventricular ejection fraction is 30-35%, dyskinetic septum and akinetic apex, the right ventricle is mildly dilated and suspected apical thrombus. So they recommended medical management and Lexiscan Cardiolite stress test prior to hospital discharge for risk stratification and they restarted him on heparin. Heparin protocol was followed. He was then switched to eliquis after 24 hours. They recommended lexiscan stress test on 03/05/2025. On 03/05/2025, he had a lexiscan stress test done, which showed perfusion defects of the septum, anteroseptum and apex however with partial improvement in stress imaging of these regions, stress LVEF 57%, hypokinesis of the septum and no TID (1.07). As lexiscan showed predominantly fixed defect they cleared him for discharge and advised to follow up with Dr. Higgins in the clinic and they discontinued aspirin. Moreover his urinalysis showed evidence of urinary tract infection. So we started him on Zosyn which was then changed to ceftriaxone due to worsening of his renal function. Urine culture grew E coli which is bridges sensitive. On 03/05/2025, his has no symptoms, his vitals are in the normal range. His labs improved over time. He is medically stable and ready for discharge. So we discharged him. Sales Support Administrator(s): CONSULTATION REPORT Name: MJ SANFORD Acct: [id number] MR: [id number] : 1945 Admit Date: 02/28/25 BONITA JUAREZ MD [facility] [address] [place] [id number] [facility] Cardiology Consultation Note Cardiology consultation February 28, 2025 Chief complaint: This is an 79-year-old male who presents with shortness disturbance nausea vomiting and retrosternal chest pain. He has a left bundle branch block on his EKG and troponins have gone from normal to 3002 around midnight and 8000 this morning. He is currently pain-free on heparin and nitrates. 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 He has had multiple stenting procedures in the past. Was found to have progression of disease and underwent aortocoronary bypass graft surgery three years ago with Dr. Bell. At that time he received a IRIZARRY graft to the LAD sequential vein graft to the obtuse marginal artery and PDA and vein graft to the diagonal artery. A CT coronary angiogram was performed in October of this year and showed an atretic IRIZARRY graft. Remaining grafts were patent. Some consideration was given at that time to stenting of the left main and proximal LAD were his anginal pattern was stable taking nitroglycerin less than once a month with relief. Yesterday developed generalized weakness difficulty ambulating visual disturbances throat tightness retrosternal pain nausea and vomiting and came to the emergency room. Electrocardiogram showed a left bundle branch block. An troponins has been elevated as noted above. He is currently pain-free. Past medical history: The patient has a history of dyslipidemia. He has a history of peripheral arterial disease and is status post a remote right and left femoral bypasses with subsequent left iliofemoral bypass with a cadaver ve in by Dr. Bell in 2022. He has a history of diabetes mellitus type and hypertension. Review of systems: No recent syncope PND orthopnea or pedal edema. No fevers sweats or chills. No hemoptysis hematemesis or melena. Social history: He is a nonsmoker nondrinker Family history: He has a positive family history for early atherosclerotic heart disease Surgical history: As outlined above aortocoronary bypass graft surgery and procedures for peripheral arterial disease. Allergies: Intolerance to morphine sulfate Exam: Blood pressure 140/80 heart rate is 106 per minute. He is afebrile. There was no elevation of the jugular venous pressure no bruits S1 normal S2 physiologically split. 1/6 systolic ejection murmur is present at the base. No diastolic component appreciable. Abdomen is soft. Extremities show no edema. Post sternotomy changes are noted. Posterior tibial pulses are absent. He is alert and oriented. Laboratory studies: White count 4.0 hemoglobin platelet count [id number]. Po tassium 4.0 BUN21 creatinine 1.5 estimated GFR of 46. Troponins has been twenty-three, 3055 and 8012. Chest x-ray: Heart size is normal post sternotomy changes are noted. Mild passive congestive changes are present. No effusions or infiltrates. Some fluid is noted in the right minor fissure. Assessment: 1. Non ST-elevation NV presenting as chest pain throat tightness nausea vomiting and disequilibrium now with late presentation and troponins of a 1000. 2. Remote myocardial infarctions and subsequent stenting procedures with subsequent aortocoronary bypass graft surgery with a IRIZARRY graft to the LAD, sequential vein graft to the obtuse marginal artery and PDA and vein graft to the diagonal artery 2021 with documented an atretic IRIZARRY graft October 2024 managed medically 3. Peripheral arterial disease status post right and left femoral artery bypasses and left iliofemoral cadaver bypass 4. Hypertension 5. Diabetes mellitus type 2 6. Dyslipidemia Plan: At this point the infarct might be a completed event. Electrocardiogram would not be helpful as it shows a left bundle branch block. We will obtain a 2D echo to look at regional wall motion. If there is severe hypokinesis or akinesis of the anterior wall I would recommend medical management and Lexiscan Cardiolite stress test prior to hospital discharge for risk stratification. If on the other hand there was significant wall motion preservation of the anterior wall we will consider left heart catheterization and stenting of the protected left main into the LAD. The patient had some neurologic symptoms on presentation we will obtain a CT scan of the head. We will resume beta joni therapy to lower his heart rate continue with nitrates heparin aspirin and clopidogrel. Transferred to BONITA JUAREZ MD Feb 28, 2025 09:30 Electronically Signed by: BONITA JUAREZ MD02/28/25 0930 Electronically Co-Signed by: Procedure(s): [facility] [address] [id number] IMAGING REPORT Signed PATIENT: MJ SANFORD MR#: [id number] : 1945 SEX: M AGE: 79 LOCATION: ED ORDER 46 STATUS: [facility] REPORT#: [id number] SERVICE 45 REASON: CHEST PAIN ORDERING PHYSICIAN: EDDY AYALA MD PROCEDURE: CXR1VW - CHEST 1VW EXAM: CR Chest, 1 view CLINICAL HISTORY: Chest pain. COMPARISON: Chest radiograph dated 03/09/2022. FINDINGS: Redemonstrated chronic peripheral interstitial thickening bilaterally. The lungs show no infiltrates or other acute findings. No pleural effusion or pneumothorax. The cardiomediastinal silhouette is within normal limits. Status poststernotomy. No acute osseous abnormality. IMPRESSION: No acute cardiopulmonary process is evident. Redemonstrated chronic peripheral interstitial thickening bilaterally. Compared to the prior study, there is no significant interval change. /[place] DICTATED BY: LUPIS POON Jr., MD DATE: 02/28/2551 ELECTRONICALLY SIGNED BY: LUPIS POON Jr., MD DATE: 02/28/2551 [facility] [address] [address] IMAGING REPORT Signed PATIENT: MJ SANFORD MR#: [id number] : 1945 SEX: M AGE: 79 [facility] STATUS: ADM IN REPORT#: [id number] SERVICE 9 REASON: NonSTEMI ORDERING PHYSICIAN: BONITA JUAREZ MD PROCEDURE: ECHO [facility] - ECHO 2-D COMPLETE APPROVED REPORT EXAM: Two-dimensional and M-mode echocardiogram with Doppler and color Doppler. INDICATION ICD: Non ST-elevation NV I21.4 2D Dimensions RVDd 4.2 cm LVEF(%) 38.2 (>50%) LVED Vol(simp.) 135.0 mL IVSd 1.2 (0.7-1.1cm) FS(%) 19 % LVES Vol(simp.) 90.0 mL LVDd 5.5 (3.8-5.6cm) LA (2D) 4.4 (1.6-4.0cm) LVEF(%, simp.) 33 % PWd 0.8 (0.7-1.1cm) Ao Root(2D) 3.4 (2.0-3.7cm) LA ESV INDEX (BP) 23.61 mL/m2 IVSs 1.0 cm LVOT diam 2.5 (1.8-2.4cm) LVDs 4.5 (2.5-4.0cm) PWs 1.5 cm Deformation Strain Apical 4 -7.5 % Apical 2 -9.7 % Apical 3 -9.6 % Global Strain -8.9 % M-Mode Dimensions EPSS 3.1 cm LA (MM) 5.4 (1.6-4.0cm) Ao Root(MM) 3.5 (2.0-3.7cm) Aortic Valve AoV Vmax 1.5 m/s Ao Peak GR 9.0 mmHg LVOT Vmax 1.0 m/s AoV VTI 0.2 m Ao Mean GR 4.3 mmHg LVOT VTI 0.16 m EL (VMAX) 3.37 cm2 EL (VTI) 3.7 cm2 Mitral Valve MV E Vmax 112.4 cm/s DECEL Time 141 ms MV A Vmax 113.2 cm/s P 1/2 T 35 ms E/A ratio 1.0 MVA (PHT) 6.3 cm2 TDI E/E' Medial 20.4 E/E' Lateral 14.9 Medial E' Peak V 5.52 cm/s Lateral E' Peak V 7.55 cm/s Pulmonary Valve PV Vmax 1.0 m/s PV VTI 0.13 m PV Mean GR 1.9 mmHg PV Peak GR 3.9 mmHg Tricuspid Valve TR Vmax 2.8 m/s RAP (EST) 3 mmHg RVSP 34.0 mmHg TR Peak GR 31.0 mmHg Left Ventricle The left ventricle is normal size. Reduced GLS -9.0% Dyskinetic septum and akinetic apex. Mild concentric left ventricular hypertrophy. LVEF is 30-35%. 3D volume EF 32% Suspected apical thrombus Stage II, diastolic dysfunction. Right Ventricle The right ventricle is mildly dilated. Right ventricular systolic function is moderately reduced. Atria The left atrium size is normal. The right atrium size is normal. Aortic Valve The aortic valve appears thickened and mildly calcified. No aortic regurgitation is present. There is no aortic valvular stenosis. Mitral Valve The mitral valve is normal in structure. There is no mitral valve regurgitation noted. There is no mitral valve stenosis. Tricuspid Valve The tricuspid valve is normal in structure. There is tracetricuspid valve regurgitation noted. Pulmonic Valve The pulmonary valve is normal in structure. There is no pulmonic valvular regurgitation. Great Vessels The aortic root is normal in size. The IVC is normal in size and collapses >50% with inspiration. Pericardium There is no pericardial effusion. Other Information Quality : Adequate Conclusion LVEF is 30-35%. 3D volume EF 32% Reduced GLS -9.0% Dyskinetic septum and akinetic apex. The right ventricle is mildly dilated. Suspected apical thrombus DICTATED BY: BONITA JUAREZ MD DATE: 02/28/25 1106 ELECTRONICALLY SIGNED BY: BONITA JUAREZ MD DATE: 02/28/25 [address] [place] [address] [address] IMAGING REPORT Signed PATIENT: MJ SANFORD MR#: [id number] : 1945 SEX: M AGE: 79 LOCATION: EDHIP ORDER 0934 STATUS: ADM IN REPORT#: [id number] SERVICE 0931 REASON: Ataxia ORDERING PHYSICIAN: BONITA JUAREZ MD PROCEDURE: HEAD WO - CT HEAD/BRAIN W/O CONTRAST EXAM: CT Head Without Intravenous Contrast. CLINICAL HISTORY: 79-year-old male ataxia. TECHNIQUE: Axial computed tomography images of the head/brain without intravenous contrast. Dose reduction technique was used including one or more of the following: automated exposure control, adjustment of mA and kV according to patient size, and/or iterative reconstruction. CONTRAST: None. COMPARISON: None. FINDINGS: BRAIN: No acute intraparenchymal hemorrhage. No mass lesion. No CT evidence for acute territorial infarct. No midline shift or extra-axial collection. Moderate atrophy. Moderate chronic ischemic changes. VENTRICLES: No hydrocephalus. ORBITS: The orbits are unremarkable. SINUSES AND MASTOIDS: The paranasal sinuses and mastoid air cells are clear. SOFT TISSUES: No significant facial or scalp soft tissue swelling evident. No radiopaque foreign body is seen. BONES: No acute skull fracture. IMPRESSION: 1. No acute intracranial abnormality. 2. Moderate atrophy and moderate chronic ischemic changes. /[place] DICTATED BY: JACK MTZ MD DATE: 02/28/251823 ELECTRONICALLY SIGNED BY: JACK MTZ MD DATE: 02/28/251823 [place] [address] IMAGING REPORT Signed PATIENT: MJ SANFORD MR#: [id number] : 1945 SEX: M AGE: 79 LOCATION: 2DH ORDER 1423 STATUS: ADM IN REPORT#: [id number] SERVICE 0700 REASON: mi ORDERING PHYSICIAN: JONH ARSHAD PROCEDURE: CARD RAFAEL - NM LEXISCAN CARDIOLITE APPROVED REPORT Height: 5 ft 10in Weight: 186 lbs TEST INDICATIONS NV The imaging protocol used to acquire images was Rest Tc-99m/stress Tc-99m 1 day Consent: The procedure was explained and understood by the patient. Informerd consent was witnessed by Cat Rodriguez RN First, low dose rest was performed then high dose stress. RESTING DATA: The resting ekg shows: SR with RBBB Rest SPECT myocardial perfusion imaging was performed in supine position minutes following the intravenous injection of 10.5 mCi of Tc-99 Sestamibi. Time of rest injection: 07:30: Date: 03/05/2025 PHARMACOLOGIC STRESS: Pharmacologic stress test was performed by injecting regadenoson 0.4 mg IV push followed by the intravenous injection of 28 mCi of Tc-99 Sestamibi. Time of stress injection: 08:45: Date: 03/05/2025 Heart Rate at time of stress injection: 81 bpm. Gated Stress SPECT was performed 60 minutes after stress injection. The images were gated to evaluate regional wall motion and calculate left ventricular ejection fraction. STRESS DETAILS Reason for Termination: Infusion complete Stress Symptoms: Cough, Light Headed, Dyspnea Max HR Achieved: 88 bpm % of APMHR Achieved: 74 Max Blood Pressure: 120/58 mmHg Stress ECG: no change Study quality was good. Lung uptake was Normal. Artifact: No artifact LEFT VENTRICLE Size: The left ventricular size is normal. Systolic Function:The left ventricular systolic function is normal. Wall Motion: Hypokinesis of the septum. The left ventricular ejection fraction was calculated to be 57%.TID = 1.07. LV PERFUSION Perfusion defects of the septum, anteroseptum and apex however with partial improvement in stress imaging of these regions. RV Size/Shape Not well visualized. IMPRESSION Equivocally normal nuclear stress test. Global LV Function: Normal Stress ECG Summary: Normal LV Perfusion Summary: No ischemia. No infarction. Conclusion Perfusion defects of the septum, anteroseptum and apex however with partial improvement in stress imaging of these regions. Stress LVEF 57%. Hypokinesis of the septum. No TID (1.07) DICTATED BY: BRYON DESAI DO DATE: 03/05/25 0811 ELECTRONICALLY SIGNED BY: BRYON DESAI DO DATE: 03/05/25 3435 Assessment/Plan: DISCHARGE DIAGNOSIS: NSTEMI, POA Rule out stroke, POA, resolved Sepsis due to Urinary tract infection, resolved Elevated liver function tests, resolved Hyperlactatemia, POA, resolved Thrombocytopenia mild, POA, resolved Acute on chronic renal failure CKD stage IIIA Diabetes mellitius type2 Hypomagnesemia,POA, resolved Hypophosphatemia, POA, resolved Hypertension Hyperlipidemia Peripheral artery disease ASSESSMENT/PLAN: NSTEMI, POA, resolved He has no symptoms today. His troponin levels were 23>3055>8012>[id number]>[id number]>883>323. Cardiology saw the patient yesterday , stopped heparin and changed to eliquis 2.5mg. They stopped the aspirin and advised them to continue clopidogrel and eliquis. As lexiscan showed predominantly fixed defect they cleared him for discharge and advised to follow up with Dr. Higgins in the clinic Rule out stroke, POA He had shaking of limbs at the time of onset of chest pain but now he has no sy mptoms. CT head is unremarkable. We ruled out seizures. Sepsis due to Urinary tract infection, resolved Urinalysis showed evidence of UTI He is on Zosyn but due to increased creatinine we changed it to ceftriaxone. Urine culture showed E coli. He has no symptoms today. Elevated liver function tests, resolved Discontinued lactate ringer and started him on normal saline. His LFT's improved after discontinued lactate ringer. Thrombocytopenia mild, POA, resolved Blood work showed platelet count is 124 Will repeat his labs tomorrow Acute on chronic renal failure,POA CKD stage IIIA His renal function improved after discontinuing Zosyn. Diabetes mellitius type2 His hemoglobin A1c is 6.5. Today his blood glucose level is 210 Hyperlipidemia Continue atorvastatin 40 mg. Peripheral artery disease Continue aspirin and clopidogrel. Discharge Instructions: Discharge date: 03/05/2025 Discharge instructions: 1) Follow up with primary care phyiscian within 2 to 3 days after discharge. 2) Follow up with cardiology Dr. Juarez on Mar 13 as planned. 3) Continue all medications as prescribed. Do not discontinue or change doses without consulting your PCP. 4) Gradually resume normal activities as tolerated. 5) Continue a balanced diet. 6) Seek immediate medical attention if you experience chest pain, SOB, or severe headache. Discharge to: Home Condition on discharge: Stable Home Medications: Active Scripts Metoprolol Succinate (Toprol Xl) 50 Mg Tab.er.24h, 50 MG PO DAILY, #30 TAB 5 Refills Prov:BONITA JUAREZ MD 03/05/25 Lisinopril (Lisinopril) 2.5 Mg Tablet, 2.5 MG PO DAILY, #30 TAB 5 Refills Prov:BONITA JUAREZ MD 03/05/25 Clopidogrel Bisulfate (Plavix) 75 Mg Tablet, 75 MG PO DAILY, #30 TAB 5 Refills Prov:BONITA JUAREZ MD 03/05/25 Apixaban (Eliquis) 2.5 Mg Tablet, 2.5 MG PO BID, #60 TAB 3 Refills Prov:BONITA JUAREZ MD 03/05/25 Reported Medications Vit A/Vit C/Vit E/Zinc/Copper (Preservision Areds Tablet) 2,148-113 Tablet, 1 TAB PO DAILY for 30 Days, #30 TAB 0 Refills 02/28/25 Metformin HCl (Metformin HCl ER) 750 Mg Tab.er.24h, 1 TAB PO BID for 30 Days, #60 TAB 0 Refills 02/28/25 Glipizide (Glipizide) 10 Mg Tablet, 0.5 TAB PO BID for 30 Days, #60 TAB 0 Refills 02/28/25 Atorvastatin Calcium (Atorvastatin Calcium) 40 Mg Tablet, 1 TAB PO DAILY for 30 Days, #30 TAB 0 Refills 02/28/25 Fenofibrate Nanocrystallized (Fenofibrate) 48 Mg Tablet, 1 TAB PO DAILY for 30 Days, #30 TAB 0 Refills 02/28/25 Gabapentin (Gabapentin) 600 Mg Tablet, 0.5 TAB PO DAILY for 30 Days, #90 TAB 0 Refills 02/28/25 Empagliflozin (Jardiance) 25 Mg Tablet, 0.5 TAB PO DAILY for 30 Days, #30 TAB 0 Refills 02/28/25 Tamsulosin HCl (Flomax) 0.4 Mg Cap.er.24h, 1 CAP PO HS for 30 Days, #30 CAP 0 Refills 02/28/25 Discontinued Reported Medications Metoprolol Tartrate (Metoprolol Tartrate) 25 Mg Tablet, 0.5 TAB PO BID for 30 Days, #60 TAB 0 Refills 02/28/25 Aspirin (Aspirin EC) 81 Mg Tablet.dr, 1 TAB PO DAILY for 30 Days, #30 TAB 0 Refills 02/28/25 Cilostazol (Cilostazol) 50 Mg Tablet, 1 TAB PO BID for 30 Days, #60 TAB 0 Refills 02/28/25 Isosorbide Mononitrate (Isosorbide Mononitrate ER) 60 Mg Tab.er.24h, 1 TAB PO DAILY for 30 Days, #30 TAB 0 Refills 02/28/25 Tramadol Hcl (Tramadol HCl) 50 Mg Tablet, 50 MG PO Q6HPRN PRN for PAIN LEVEL 6 TO 10, #30 TAB 03/14/22 Ibuprofen (Ibuprofen 200 mg Tablet) 200 Mg Tablet, 200 MG PO Q6HPRN PRN for PAIN LEVEL 1 TO 5, TAB 03/14/22 Fluticasone/Umeclidin/Vilanter (Trelegy Ellipta 200-62.5-25) 1 Each Blst.w.dev, 1 EACH IH AD PRN for SHORTNESS OF BREATH 03/10/22 Isosorbide Mononitrate (Isosorbide Mononitrate ER) 60 Mg Tab.er.24h, 60 MG PO HS, TAB 03/10/22 Lisinopril (Lisinopril) 2.5 Mg Tablet, 2.5 MG PO HS, TAB 03/10/22 Insulin Glargine,Hum.rec.anlog (Lantus) 100 Units/Ml Inj, 52 UNITS SQ BID, ML 08/13/20 Aspirin (ASPIRIN 81 MG ECTAB) 81 Mg Ectab, 81 MG PO DAILY, TAB.EC 08/13/20 Metformin HCl (Metformin HCl) 500 Mg Tablet, 500 MG PO BID, TAB 08/13/20 Glyburide (Glyburide) 5 Mg Tablet, 5 MG PO BID, TAB 08/13/20 Clopidogrel Bisulfate (Plavix) 75 Mg Tablet, 75 MG PO HS, TAB 08/13/20 Atorvastatin Calcium (LIPITOR) 80 Mg Tablet, 40 MG PO HS, TAB 08/13/20 Atenolol (Atenolol) 50 Mg Tablet, 50 MG PO HS, TAB 08/13/20 New Medications: Apixaban (Eliquis) 2.5 Mg Tablet 2.5 MG PO BID, #60 TAB 3 Refills Clopidogrel Bisulfate (Plavix) 75 Mg Tablet 75 MG PO DAILY, #30 TAB 5 Refills Lisinopril (Lisinopril) 2.5 Mg Tablet 2.5 MG PO DAILY, #30 TAB 5 Refills Metoprolol Succinate (Toprol Xl) 50 Mg Tab.er.24h 50 MG PO DAILY, #30 TAB 5 Refills Continued Medications: Atorvastatin Calcium (Atorvastatin Calcium) 40 Mg Tablet 1 TAB PO DAILY for 30 Days, #30 TAB 0 Refills Empagliflozin (Jardiance) 25 Mg Tablet 0.5 TAB PO DAILY for 30 Days, #30 TAB 0 Refills Fenofibrate Nanocrystallized (Fenofibrate) 48 Mg Tablet 1 TAB PO DAILY for 30 Days, #30 TAB 0 Refills Gabapentin (Gabapentin) 600 Mg Tablet 0.5 TAB PO DAILY for 30 Days, #90 TAB 0 Refills Glipizide (Glipizide) 10 Mg Tablet 0.5 TAB PO BID for 30 Days, #60 TAB 0 Refills Metformin HCl (Metformin HCl ER) 750 Mg Tab.er.24h 1 TAB PO BID for 30 Days, #60 TAB 0 Refills Tamsulosin HCl (Flomax) 0.4 Mg Cap.er.24h 1 CAP PO HS for 30 Days, #30 CAP 0 Refills Vit A/Vit C/Vit E/Zinc/Copper (Preservision Areds Tablet) 2,148-113 Tablet 1 TAB PO DAILY for 30 Days, #30 TAB 0 Refills Discontinued Medications: Aspirin (Aspirin EC) 81 Mg Tablet.dr 1 TAB PO DAILY for 30 Days, #30 TAB 0 Refills Cilostazol (Cilostazol) 50 Mg Tablet 1 TAB PO BID for 30 Days, #60 TAB 0 Refills Isosorbide Mononitrate (Isosorbide Mononitrate ER) 60 Mg Tab.er.24h 1 TAB PO DAILY for 30 Days, #30 TAB 0 Refills Metoprolol Tartrate (Metoprolol Tartrate) 25 Mg Tablet 0.5 TAB PO BID for 30 Days, #60 TAB 0 Refills Time spent arranging discharge: 1-30 minutes ATTESTATION BY PHYSICIAN I have seen and examined the patient. I reviewed the documentation, medical decision making, and treatment plan as noted by the resident provider above. I agree with the findings and plan of care. Dar Banuelos MD, AKSHAY MD Mar 05, 2025 18:58
== END 2025-03-05 18:15 | disposition home or self-care (01) | DRG 871 ==
LOC: EDH 22:19 → EDHIP 02-28 02:11 → 2DH 03-01 03:45
PROVIDERS: ADMIT Internal Medicine; ATTEND Internal Medicine
PROC: 4A02XM4 Measurement of Cardiac Total Activity, External Approach (ICD-10-PCS; principal; 2025-03-05)
PROC: 3E073KZ Introduction of Other Diagnostic Substance into Coronary Artery, Percutaneous Approach (ICD-10-PCS; 2025-03-05)
DX: A41.9 Sepsis, unspecified organism (principal); I21.4 Non-ST elevation (NSTEMI) myocardial infarction; E87.20 Acidosis, unspecified; N17.9 Acute kidney failure, unspecified; N39.0 Urinary tract infection, site not specified; I45.2 Bifascicular block; I12.9 Hypertensive chronic kidney disease with stage 1 through stage 4 chronic kidney disease, or unspecified chronic kidney disease; D69.6 Thrombocytopenia, unspecified; E11.22 Type 2 diabetes mellitus with diabetic chronic kidney disease; E11.51 Type 2 diabetes mellitus with diabetic peripheral angiopathy without gangrene; E83.39 Other disorders of phosphorus metabolism; E83.42 Hypomagnesemia; N18.31 Chronic kidney disease, stage 3a; H53.9 Unspecified visual disturbance; B96.20 Unspecified Escherichia coli [E. coli] as the cause of diseases classified elsewhere; E78.5 Hyperlipidemia, unspecified; N18.32 Chronic kidney disease, stage 3b; B96.89 Other specified bacterial agents as the cause of diseases classified elsewhere; I25.5 Ischemic cardiomyopathy; E78.00 Pure hypercholesterolemia, unspecified; I44.7 Left bundle-branch block, unspecified; Z85.51 Personal history of malignant neoplasm of bladder; Z95.1 Presence of aortocoronary bypass graft; Z82.49 Family history of ischemic heart disease and other diseases of the circulatory system; Z95.5 Presence of coronary angioplasty implant and graft; I25.2 Old myocardial infarction; Z79.02 Long term (current) use of antithrombotics/antiplatelets; Z79.82 Long term (current) use of aspirin; Z79.899 Other long term (current) drug therapy
CPT/HCPCS: 36415; 70450; 70551; 71045; 76376; 78452; 80048; 80051; 80076; 81001; 82550; 82570; 82948; 83036; 83605; 83690; 83735; 83880; 84100; 84145; 84443; 84484; 84540; 85025; 85027; 85610; 85730; 86850; 86900; 86901; 87040; 87086; 87186; 93005; 93017; 93306; 93356; 94640; 96374; 96375; 99291; A9500; G0378; J0696; J1644; J1815; J2270; J2405; J2470; J2543; J2785; J3475